=== PATIENT | female | born 1960 | race Caucasian/White ===

== ENCOUNTER 2019-11-01 13:21 | Inpatient (IN) | payer MEDICARE, SELFPAY ==
[2019-11-01] VITALS (11 sets, daily range): BP systolic 107–169; BP diastolic 69–108; PULSE 76–103; RESP 14–21; TEMP 36.6–36.9; O2SAT 94–96; BMI 38.0
--- NOTE | 2019-11-01 13:28 | ED_ITS ---
Entered by Na Mcwilliams, acting as scribe for Renzo Merritt MD, [facility] HPI - Altered Mental Status General: Chief Complaint: Altered Mental Status Stated Complaint: AMS, MULTIPLE FALLS TODAY Time Seen by Provider: 11/01/19 13:28 Source: patient and RN notes reviewed Mode of arrival: ambulatory Limitations: no limitations History of Present Illness: HPI narrative: 59 yo female presents to ED with an altered mental status. The patient has had multiple falls (3 times today). The patient family stated the patient's speech is not normal. The patient states she is pre-diabetic. The patient's PCP is Nori Rosenberg. The patient states she feels light headed, like she could pass out. The daughter states she the patient texts her that the texts make no sense, it is just random letters. The patient stated she is thirsty all the time as well as urinating frequently. The patient's blood sugar was over 600 at triage. MD complaint: altered mental status, confusion and weakness Onset (ago): day(s) (4) Timing confirmed by: spouse and family member Severity: severe Consistency of symptoms: Getting Worse Context: unknown Associated symptoms: Reports no associated symptoms Review of Systems General: Reports: 10 or more systems reviewed and unremarkable except in HPI and below Const: Denies: fever, chills or body aches Eyes: Reports: blind spots; Denies: change in vision or blurry vision ENMT: Denies: throat pain, enlarged tonsils, painful swallowing, hoarseness, mouth pain or swelling of lips/tongue Card: Reports: chest pain; Denies: palpitations, irregular heart rhythm, edema or swelling of feet/ankles Resp: Denies: shortness of breath, productive cough or non-productive cough GI: Denies: abdominal pain, nausea or vomiting : Denies: flank pain, difficulty urinating, painful urination, urinary urgency or urinary hesitancy Musc: Reports: extremity pain (left shoulder), joint pain (left shoulder) and limited range of motion; Denies: neck pain, back pain or extremity swelling Skin/Breast: Denies: rash, itching or redness Neuro: Denies: headache or numbness in extremities PFSH ED PFSH: Statuses (acute, chronic, etc) shown below reflect problem list status as previously entered and may not be historically accurate Medical History (Updated 11/01/19 @ 20:59 by Renzo Merritt MD, [facility]) COPD (chronic obstructive pulmonary disease) (Acute) Depression (Acute) History of cervical cancer (Acute) Hypertension (Acute) Morbid obesity (Acute) Type 2 diabetes mellitus (Acute) Family History (Updated 11/01/19 @ 19:06 by Juan Boston MD) Other Cancer Chronic kidney disease (CKD) Social History (Updated 11/01/19 @ 19:07 by Juan Boston MD) Smoking and tobacco status: current every day smoker Alcohol intake: never Substance/Drug Use: never Household members: family Housing: House Physical Exam Const: COMMON NORMALS: no apparent distress, average body habitus, no limitations, healthy appearing, alert and well nourished EXAM LIMITATIONS: altered mental status NUTRITIONAL APPEARANCE: overweight ORIENTATION/CONSCIOUSNESS: Yes awake, Yes oriented to person and Yes oriented to place HENMT: COMMON NORMALS: normocephalic, head/scalp atraumatic and moist oral mucous membranes HEAD & SCALP: normocephalic and atraumatic MOUTH: oral and palatal mucosa abnormal (dry) Eye: COMMON NORMALS: PERRL, EOMs intact bilaterally, conjunctivae normal and no scleral icterus CONJUNCTIVA: Yes conjunctivae normal PUPIL: Yes PERRL Neck/C-Spine: COMMON NORMALS: full ROM, supple, no meningeal signs, no JVD and no carotid bruits Chest: COMMONS NORMALS: inspection of chest normal and palpation of chest normal Resp: COMMON NORMALS: normal respiratory effort, no retractions, no use of accessory muscles, clear to auscultation bilaterally and percussion normal AUSCULTATION: clear to auscultation bilaterally PERCUSSION: percussion normal Cardio: COMMON NORMALS: no JVD, regular rate, regular rhythm, S1 normal heart sound, S2 normal heart sound, no gallops, no clicks, no murmurs, no rub and p eripheral pulses 2+ throughout RATE: regular rate RHYTHM: regular rhythm HEART SOUNDS: S1 normal and S2 normal PERIPHERAL PULSES: pulses 2+ throughout GI: COMMON NORMALS: normal to inspection, nondistended, normoactive bowel sounds, soft to palpation, non-tender, no hepatosplenomegaly, no masses and no bruits PALPATION: Yes soft and Yes no hepatosplenomegaly : COMMON NORMALS: Yes no CVA tenderness BLADDER/KIDNEY EXAM: Yes no CVA tenderness Back/Pelvis: COMMON NORMALS: no CVA tenderness Extremity: COMMON NORMALS: normal to inspection, full ROM, normal capillary refill, no calf tenderness and no pedal edema Neuro: SENSORIUM/ORIENTATION: Yes alert, Yes oriented to person and Yes oriented to place MENINGEAL SIGNS: Yes no meningeal signs OTHER: Speech does not always make sense Skin: COMMON NORMALS: no rashes or lesions noted, no wounds, no jaundice, no petechiae and no mottling GENERAL SKIN EXAM: no rashes or lesions noted and dry skin Course Consultations: Consultation #1: Dr. Singh, she kindly accepted the patient to her service Vital Signs: Vital signs: Vital Signs Temperature 97.8 F 11/01/19 13:24 Pulse Rate 93 11/01/19 18:12 Respiratory Rate 18 11/01/19 18:12 Blood Pressure 158/69 11/01/19 18:12 Pulse Oximetry 95 11/01/19 18:12 MDM - Altered Mental Status MDM Narrative: Medical decision making narrative: 59-year-old female who presented to the emergency department with altered mental status. In the emergency department she was diagnosed with DKA. She is a diabetic however is not on any medications. Her blood glucose was high, she had a high anion gap and ketones in her serum. She is admitted to the ICU for further evaluation and management. She was started on an insulin drip here in the emergency department Medical Records: Attestation: I reviewed the patient's medical records. Lab Data: Attestation: I reviewed the patient's lab results. Labs: Lab Results 11/01/19 11/01/19 11/01/19 Range/Units 13:26 13:30 13:30 WBC 11.8 H (4.0-10.0) 10^3/ uL RBC 5.82 H (4.1-5.3) 10^6/u L Hgb 17.0 H (11.5-15.3) g/dL Hct 49.4 H (37.0-47.0) % MCV 84.9 (81-99) fL MCH 29.2 (28.0-34.0) pg MCHC 34.4 (30.0-36.0) g/dL RDW 13.7 (12.1-15.1) % Plt Count 298 (130-400) 10^3/c mm MPV 12.3 H (7.4-10.4) fL Neut % (Auto) 56.1 % Lymph % (Auto) 29.3 % [place] % (Auto) 9.9 % Eos % (Auto) 1.5 % Baso % (Auto) 0.8 % Neut # (Auto) 6.6 (1.8-7.7) 10^3/u L Lymph # (Auto) 3.5 (0.8-4.8) 10^3/u L [place] # (Auto) 1.2 H (0.2-0.9) 10^3/u L Eos # (Auto) 0.2 (0.0-0.8) 10^3/u L Baso # (Auto) 0.1 (0.0-0.1) 10^3/u L Nucleated RBC % (a uto) 0 % Nucleated RBCs # 0.0 /100WBC Specimen Type Sample Site ABG pH (7.35-7.45) ABG pCO2 (35-45) mmHg ABG pO2 (80.0-100.0) mmH g ABG HCO3 (22-26) mmol/L ABG Base Excess (-2.0-2.0) mmol/ L Zach Test Hematocrit (37-47) % O2 Delivery Device O2 Liters/Min % Occupational Therapy Professor ID Sodium 123 L (136-145) mmol/L Potassium 4.3 (3.5-5.1) mmol/L Chloride 80 L (98-107) mmol/L Carbon Dioxide 17 L (22-29) mmol/L Anion Gap 30.3 H (5-19) BUN 26 H (6-20) mg/dL Creatinine 1.1 H (0.5-0.9) mg/dL GFR Calculation 51.2 L (90-130) mL/min Glucose 681 H* (74-109) mg/dL POC Glucose > 600 (70-110) mg/dL Estimat Average Gl ucose Hemoglobin A1c (4.0-6.0) % Lactate (0.5-2.2) mmol/L Calcium 11.3 H (8.5-10.5) mg/dL Magnesium 2.5 H (1.7-2.3) mg/dL Total Bilirubin 0.4 (0.15-1.2) mg/dL AST 20 (0-32) U/L ALT 34 H (0-33) U/L Alkaline Phosphata se 159 H (35-105) IU/L Total Protein 8.1 (6.6-8.7) g/dL Albumin 4.3 (3.5-5.2) g/dL Globulin 3.8 (1.3-4.6) g/dL TSH 2.62 (0.27-4.20) uIU/ mL HCG, Qual (Negative) Urine Color (Yellow) Urine Appearance (CLEAR) Urine pH (5-7) Ur Specific Gravit y (1.005-1.030) Urine Protein (Negative) Urine Glucose (UA) (Normal) Urine Ketones (Negative) Urine Occult Blood (Negative) Urine Nitrate (Negative) Urine Bilirubin (NEGATIVE) Urine Urobilinogen (Negative) mg/dL Ur Leukocyte Corin ase (Negative) Urine RBC (0-2) /hpf Urine WBC (0-5) /hpf Ur Squamous Epith Cells (0-5) Urine Bacteria (NONE) Urine Yeast Ethyl Alcohol < 10 (0-10) mg/dL Serum Ketones (Negative) 11/01/19 11/01/19 11/01/19 Range/Units 13:30 13:30 13:45 WBC (4.0-10.0) 10^3/ uL RBC (4.1-5.3) 10^6/u L Hgb (11.5-15.3) g/dL Hct (37.0-47.0) % MCV (81-99) fL MCH (28.0-34.0) pg MCHC (30.0-36.0) g/dL RDW (12.1-15.1) % Plt Count (130-400) 10^3/c mm MPV (7.4-10.4) fL Neut % (Auto) % Lymph % (Auto) % [place] % (Auto) % Eos % (Auto) % Baso % (Auto) % Neut # (Auto) (1.8-7.7) 10^3/u L Lymph # (Auto) (0.8-4.8) 10^3/u L [place] # (Auto) (0.2-0.9) 10^3/u L Eos # (Auto) (0.0-0.8) 10^3/u L Baso # (Auto) (0.0-0.1) 10^3/u L Nucleated RBC % (a uto) % Nucleated RBCs # /100WBC Specimen Type Arterial Sample Site Radial, right ABG pH 7.39 (7.35-7.45) ABG pCO2 26.7 L (35-45) mmHg ABG pO2 77.6 L (80.0-100.0) mmH g ABG HCO3 16.2 L (22-26) mmol/L ABG Base Excess -6.8 L (-2.0-2.0) mmol/ L Zach Test Pos Hematocrit 52.0 H (37-47) % O2 Delivery Device Nc O2 Liters/Min 2.0 % Occupational Therapy Professor ID jmn Sodium (136-145) mmol/L Potassium (3.5-5.1) mmol/L Chloride (98-107) mmol/L Carbon Dioxide (22-29) mmol/L Anion Gap (5-19) BUN (6-20) mg/dL Creatinine (0.5-0.9) mg/dL GFR Calculation (90-130) mL/min Glucose (74-109) mg/dL POC Glucose (70-110) mg/dL Estimat Average Gl ucose 332 Hemoglobin A1c 13.2 H (4.0-6.0) % Lactate (0.5-2.2) mmol/L Calcium (8.5-10.5) mg/dL Magnesium (1.7-2.3) mg/dL Total Bilirubin (0.15-1.2) mg/dL AST (0-32) U/L ALT (0-33) U/L Alkaline Phosphata se (35-105) IU/L Total Protein (6.6-8.7) g/dL Albumin (3.5-5.2) g/dL Globulin (1.3-4.6) g/dL TSH (0.27-4.20) uIU/ mL HCG, Qual (Negative) Urine Color (Yellow) Urine Appearance (CLEAR) Urine pH (5-7) Ur Specific Gravit y (1.005-1.030) Urine Protein (Negative) Urine Glucose (UA) (Normal) Urine Ketones (Negative) Urine Occult Blood (Negative) Urine Nitrate (Negative) Urine Bilirubin (NEGATIVE) Urine Urobilinogen (Negative) mg/dL Ur Leukocyte Corin ase (Negative) Urine RBC (0-2) /hpf Urine WBC (0-5) /hpf Ur Squamous Epith Cells (0-5) Urine Bacteria (NONE) Urine Yeast Ethyl Alcohol (0-10) mg/dL Serum Ketones Positive H (Negative) 11/01/19 11/01/19 11/01/19 Range/Units 14:04 14:18 14:20 WBC (4.0-10.0) 10^3/ uL RBC (4.1-5.3) 10^6/u L Hgb (11.5-15.3) g/dL Hct (37.0-47.0) % MCV (81-99) fL MCH (28.0-34.0) pg MCHC (30.0-36.0) g/dL RDW (12.1-15.1) % Plt Count (130-400) 10^3/c mm MPV (7.4-10.4) fL Neut % (Auto) % Lymph % (Auto) % [place] % (Auto) % Eos % (Auto) % Baso % (Auto) % Neut # (Auto) (1.8-7.7) 10^3/u L Lymph # (Auto) (0.8-4.8) 10^3/u L [place] # (Auto) (0.2-0.9) 10^3/u L Eos # (Auto) (0.0-0.8) 10^3/u L Baso # (Auto) (0.0-0.1) 10^3/u L Nucleated RBC % (a uto) % Nucleated RBCs # /100WBC Specimen Type Sample Site ABG pH (7.35-7.45) ABG pCO2 (35-45) mmHg ABG pO2 (80.0-100.0) mmH g ABG HCO3 (22-26) mmol/L ABG Base Excess (-2.0-2.0) mmol/ L Zach Test Hematocrit (37-47) % O2 Delivery Device O2 Liters/Min % Occupational Therapy Professor ID Sodium (136-145) mmol/L Potassium (3.5-5.1) mmol/L Chloride (98-107) mmol/L Carbon Dioxide (22-29) mmol/L Anion Gap (5-19) BUN (6-20) mg/dL Creatinine (0.5-0.9) mg/dL GFR Calculation (90-130) mL/min Glucose (74-109) mg/dL POC Glucose (70-110) mg/dL Estimat Average Gl ucose Hemoglobin A1c (4.0-6.0) % Lactate 2.0 (0.5-2.2) mmol/L Calcium (8.5-10.5) mg/dL Magnesium (1.7-2.3) mg/dL Total Bilirubin (0.15-1.2) mg/dL AST (0-32) U/L ALT (0-33) U/L Alkaline Phosphata se (35-105) IU/L Total Protein (6.6-8.7) g/dL Albumin (3.5-5.2) g/dL Globulin (1.3-4.6) g/dL TSH (0.27-4.20) uIU/ mL HCG, Qual Negative (Negative) Urine Color Yellow (Yellow) Urine Appearance Clear (CLEAR) Urine pH 5 (5-7) Ur Specific Gravit y 1.020 (1.005-1.030) Urine Protein Trace (Negative) Urine Glucose (UA) 4+ H (Normal) Urine Ketones 2+ H (Negative) Urine Occult Blood 3+ H (Negative) Urine Nitrate Negative (Negative) Urine Bilirubin Neg (NEGATIVE) Urine Urobilinogen Norm (Negative) mg/dL Ur Leukocyte Corin ase Negative (Negative) Urine RBC 5-10 H (0-2) /hpf Urine WBC 0-4 H (0-5) /hpf Ur Squamous Epith Cells 0-4 H (0-5) Urine Bacteria 2+ H (NONE) Urine Yeast 2+ H Ethyl Alcohol (0-10) mg/dL Serum Ketones (Negative) Imaging Data^: CT Head: Radiologist's impression: [address] [address] [address] Scan Report Signed Patient: Sandra Jarquin Unit #: [id number] : 1960 Age/Sex: 59 / F ADM Date: 11/01/19 Loc: ER Room/Bed: Attending Dr: Ordering Provider/Ordering MD: Renzo Merritt MD, [facility] Date of Service: 11/01/19 Procedure(s): CT head wo con* [id number] Accession Number(s): [id number] Report Number: [id number] WS: [id number] CT scan of the head, 11/01/2019 Clinical Data: AMS Comparison: None. DLP: 803.[address] scans at [facility] use at least one of these dose optimization techniques: automated exposure control; mA and/or kV adjustment per patient size (includes targeted exams where dose is matched to clinical indication); or iterative reconstruction. Findings: The ventricular system is normal without shift. No recent infarct or hemorrhage is seen. There are no abnormal intracerebral masses. The cerebellum and brainstem are not remarkable. Bony windows of the skull and skull base show no fractures or erosions. The mastoid air cells, internal auditory canals, sella turcica, intraorbital contents, and paranasal sinuses are unremarkable. CT/CT head wo con* [id number] Impression: Negative CT scan of the head Dictated By: Maria Isabel Coffey MD Signed By: Maria Isabel Coffey MD Signed Date/Time: 11/01/19 1539 DD/ CXR: Radiologist's impression: [address] [address] XRay Report Signed Patient: Sandra Jarquin Unit #: [id number] : 1960 Age/Sex: 59 / F ADM Date: Loc: ER Room/Bed: Attending Dr: Ordering Provider/Ordering MD: Renzo Merritt MD, [facility] Date of Service: 11/01/19 Procedure(s): XR chest 1V portable [id number] Accession Number(s): [id number] Report Number: [id number] WS: [id number] Portable AP upright chest, 11/01/2019 Clinical Data: AMS Comparison: None. Findings: No nodules, masses or effusions are seen. The heart is normal. The pulmonary vascularity is not increased. No pneumonia or pneumothorax is seen. XR/XR chest 1V portable [id number] Impression: Negative chest. Dictated By: Maria Isabel Coffey MD Signed By: Maria Isabel Coffey MD Signed Date/Time: 11/01/19 1357 DD/ Discharge Plan Discharge Patient Disposition: Admitted As Inpatient Admit Provider: Mary Singh Clinical Impression: DKA (diabetic ketoacidoses), Altered mental status Condition: Stable Interventions: ED Discharge Assessment Last Done: 11/01/19 18:12 Discharge Date/Time: 11/01/19 18:13 Coding Level of Care Code ED Top Lift Compressor for Chg Fwd The documentation recorded by the Oj mason Valerie R, accurately reflects the service I personally performed and the decisions made by René rider Adegoke I, MD, [facility] Nov 01, 2019 13:21
[2019-11-01 13:29] LABS: Glucose Point of Care > 600 mg/dL (70-110)
--- NOTE | 2019-11-01 13:36 | CT_ITS ---
WS: [id number] CT scan of the head, 11/01/2019 Clinical Data: AMS Comparison: None. DLP: 803.[address] scans at [facility] use at least one of these dose optimization techniques: automat ed exposure control; mA and/or kV adjustment per patient size (includes targeted exams where dose is matched to clinical indication); or iterative reconstruction. Findings: The ventricular system is normal without shift. No recent infarct or hemorrhage is seen. There are no abnormal intracerebral masses. The cerebellum and brainstem are not remarkable. Bony windows of the skull and skull base show no fractures or erosions. The mastoid air cells, materials intern al auditory canals, sella turcica, intraorbital contents, and paranasal sinuses are unremarkable. CT/CT head wo con* [id number] Impression: Negative CT scan of the head
--- NOTE | 2019-11-01 13:36 | XR_ITS ---
WS: [id number] Portable AP upright chest, 11/01/2019 Clinical Data: AMS Comparison: None. Findings: No nodules, masses or effusions are seen. The heart is normal. The pulmonary vascularity is not increased. No pneumonia or pneumothorax is seen. XR/XR chest 1V portable [id number] Impression: Negative chest.
[2019-11-01 13:59] LABS: Basophils # 0.1 10^3/uL (0.0-0.1); Basophils % 0.8 %; Eosinophils # 0.2 10^3/uL (0.0-0.8); Eosinophils % 1.5 %; Hematocrit 49.4 % (37.0-47.0); Lymphocytes # 3.5 10^3/uL (0.8-4.8); Lymphocytes % 29.3 %; Mean Corpuscular HGB Conc 34.4 g/dL (30.0-36.0); Mean Corpuscular Hemoglobin 29.2 pg (28.0-34.0); Mean Corpuscular Volume 84.9 fL (81-99); Mean Platelet Volume 12.3 fL (7.4-10.4); Monocytes # 1.2 10^3/uL (0.2-0.9); Monocytes % 9.9 %; Neutrophils # 6.6 10^3/uL (1.8-7.7); Neutrophils % 56.1 %; Nucleated Red Blood Cells % 0 %; Platelet Count 298 10^3/cmm (130-400); Red Blood Count 5.82 10^6/uL (4.1-5.3); Red Cell Distribution Width 13.7 % (12.1-15.1); White Blood Count 11.8 10^3/uL (4.0-10.0)
[2019-11-01 14:02] LABS: ABG PCO2 26.7 mmHg (35-45); ABG PH Result 7.39 (7.35-7.45); Base Excess ABG -6.8 mmol/L (-2.0-2.0); Blood Gas Allen Test Pos; Blood Gas Sample Site Radial, right; Blood Gas Sample Type Arterial; HCO3 ABG 16.2 mmol/L (22-26); Oxygen Device NC; PO2 ABG 77.6 mmHg (80.0-100.0)
[2019-11-01 14:11] LABS: Ketone (Acetest) Serum Positive (Negative)
[2019-11-01 14:25] LABS: Alanine Aminotransferase 34 U/L (0-33); Albumin Level 4.3 g/dL (3.5-5.2); Alkaline Phosphatase 159 IU/L (35-105); Anion Gap 30.3 (5-19); Aspartate Amino Transferase 20 U/L (0-32); Blood Urea Nitrogen 26 mg/dL (6-20); Calcium 11.3 mg/dL (8.5-10.5); Carbon Dioxide 17 mmol/L (22-29); Chloride 80 mmol/L (98-107); Globulin 3.8 g/dL (1.3-4.6); Glomerular Filtration Rate 51.2 mL/min (90-130); Magnesium 2.5 mg/dL (1.7-2.3); Potassium 4.3 mmol/L (3.5-5.1); Sodium 123 mmol/L (136-145); Thyroid Stimulating Hormone 2.62 uIU/mL (0.27-4.20); Total Bilirubin 0.4 mg/dL (0.15-1.2); Total Protein 8.1 g/dL (6.6-8.7)
[2019-11-01 14:26] LABS: Add Urine Microscopic? YES; Bilirubin Urine Neg (NEGATIVE); Blood Urine 3+ (Negative); Glucose Urine UA 4+ (Normal); Ketones Urine 2+ (Negative); Leukocyte Esterase Urine Negative (Negative); Nitrate Urine Negative (Negative); Protein Urine Trace (Negative); Urine Appearance Clear (CLEAR); Urine Color Yellow (Yellow); Urobilinogen Urine Norm (Negative); pH Urine 5 (5-7)
[2019-11-01 14:26] LABS: HCG Qualitative Urine. Negative (Negative)
[2019-11-01 14:31] LABS: Alcohol Level < 10 mg/dL (0-10); Glucose 681 mg/dL (74-109)
[2019-11-01 14:35] LABS: Squamous Epithelial Cell Urine 0-4 (0-5)
[2019-11-01 14:36] LABS: Add Urine Culture? Yes; Bacteria Urine 2+; WBC Urine 0-4 /hpf (0-5)
[2019-11-01] MEDS: sodium chloride 0.9% 1,000 ML 999 ML IV ×2 (15:13→18:03)
[2019-11-01] MEDS: insulin regular-human 250 UNIT in sodium chloride 0.9% 250 ML 10 UNIT IV (16:50)
[2019-11-01 17:28] LABS: Estmated Average Glucose 332; Hemoglobin A1C 13.2 % (4.0-6.0)
[2019-11-01] MEDS: nicotine 21 mg Patch 1 PATCH TRANSDERMA (18:03)
[2019-11-01 18:44] LABS: Glucose Point of Care 301 mg/dL (70-110)
[2019-11-01] MEDS: insulin regular-human 250 UNIT in sodium chloride 0.9% 250 ML 7.2 UNIT IV (18:53)
[2019-11-01] MEDS: sodium chloride 0.9% 1,000 ML 125 ML IV (18:58)
--- NOTE | 2019-11-01 18:58 | PM.HP ---
Providers/Chief Complaint Admitting Physician: Mary Singh MD Chief Complaint: DKA History of Present Illness Sandra Jarquin is a 59 year old female's medical history of depression,Morbid obesity, COPD, fibromyalgia, chronic smoker, hyperlipidemia, type 2 diabetes mellitus on diet control presented to the ER today complaining of having frequent episodes of falls since Tuesday. Patient states she has had up to 4 episodes since Tuesday that she would get up from the bed or chair will have dizziness along with flash in front of her eyes with nausea and she would have presyncopal events in which she would fall on the ground but would not lose her consciousness. Because she was having recurrent episodes she came to the ER. In the ER patient was found to have high blood sugars along with high anion gap so has been admitted to the ICU for DKA. Patient denies of having any nausea, vomiting, change in her bowel movements, flulike symptoms, shortness of breath, palpitations. Patient also complains of having sores beneath both her breasts and in her pannus area for last 2 years for which she has been intermittently on antibiotics with last antibiotic use over 7-month ago. Patient states right now for last couple of weeks there has been occasional boils through which foul-smelling stuff is coming out. She denies of having any fevers or chills but does complain sores are extremely painful. She is not taking any medications for the sores. Review of Systems Const: Denies: fever, chills, body aches, change in appetite, malaise, night sweats, diaphoresis, change in sleep pattern, daytime sleepiness or snoring Eyes: Denies: change in vision, blurry vision, photophobia, eye discomfort or eye discharge ENMT: Denies: throat pain, enlarged tonsils, hoarseness, mouth pain, oral sores/lesions, dry mouth, tinnitus, nasal congestion or post nasal drip Card: Denies: chest pain, palpitations, irregular heart rhythm, edema, swelling of feet/ankles, lightheadedness, syncope, pre-syncope, shortness of breath on exertion, shortness of breath when lying down, leg pain with exertion or bluish discoloration of hands/feet Resp: Denies: shortness of breath, productive cough, non-productive cough, wheezing, stridor, pain on inspiration, change in phlegm color, coughing up blood or chest congestion GI: Reports: abdominal pain and nausea; Denies: vomiting, vomiting blood, coffee grounds in vomit, difficulty swallowing, heartburn/indigestion, diarrhea, constipation, bloating, cramping, change in bowel habits, painful bowel movements, blood in stool or black tarry stool : Denies: flank pain, painful urination, urinary frequency, urinary urgency, urinary hesitancy, nighttime urination or blood in urine Musc: Reports: extremity pain; Denies: neck pain, back pain, joint pain, joint swelling, redness, joint stiffness or limited range of motion Neuro: Reports: headache, weakness in extremities, lack of coordination, frequent falls and dizziness; Denies: numbness in extremities, changes in sensation, difficulty walking, vertigo, confusion, slurred speech, difficulty communicating thoughts or seizure-like activity Psych: Denies: anxiety, depression, mood swings, panic attacks, hopelessness or irritability Endo: Denies: excessive urination, excessive thirst, tired all the time, cold intolerance, excessive sweating, flushing or heat intolerance Gt/Lymph: Denies: easy bruising or easy bleeding All/Imm: Denies: tongue swelling, facial swelling or acute wheezing Medications/Allergies Home Medications Medication Instructions Recorded Confirmed Last Taken Type amitriptyline 50 - 150 mg PO BEDTIME 11/01/19 11/01/19 Unknown History bupropion HCl 150 mg PO BID 11/01/19 11/01/19 Unknown History cyclobenzaprine 10 mg PO BID PRN 11/01/19 11/01/19 Unknown History esomeprazole magnesium [Nexium] 40 mg PO DAILY 11/01/19 11/01/19 Unknown History oxybutynin chloride 10 mg PO DAILY 11/01/19 11/01/19 Unknown History potassium chloride 10 meq PO DAILY 11/01/19 11/01/19 Unknown History rosuvastatin [Crestor] 10 mg PO DAILY 11/01/19 11/01/19 Unknown History Allergies Allergy/AdvReac Type Severity Reaction Status Date / Time No Known Allergies Allergy Verified 11/01/19 13:29 PFSH Acute PFSH: Statuses (acute, chronic, etc) shown below reflect problem list status as previously entered and may not be historically accurate Medical History (Updated 11/01/19 @ 19:06 by Juan Boston MD) COPD (chronic obstructive pulmonary disease) (Acute) Depression (Acute) History of cervical cancer (Acute) Hypertension (Acute) Morbid obesity (Acute) Type 2 diabetes mellitus (Acute) Family History (Updated 11/01/19 @ 19:06 by Juan Boston MD) Other Cancer Chronic kidney disease (CKD) Social History (Updated 11/01/19 @ 19:07 by Juan Boston MD) Smoking and tobacco status: current every day smoker Alcohol intake: never Substance/Drug Use: never Household members: family Housing: House Vitals/I&O/Wt Last Vital Signs Temp 97.8 F 11/01/19 13:24 Pulse 93 11/01/19 18:12 Resp 18 11/01/19 18:12 BP 158/69 11/01/19 18:12 Pulse Ox 95 11/01/19 18:12 11/01/19 11/01/19 11/01/19 06:59 14:59 22:59 Intake Total 20.5 / 20.5 Balance 20.5 / 20.5 Weight last 48 hrs Weight 113.398 kg Physical Exam Narrative: EXAM NARRATIVE: General: No acute distress, AO x3, dehydrated, anxious HEENT: PERRLA, pupils bilaterally equal and reactive Chest: Normal vesicular breath sounds, no added sounds, equal good air entry bilaterally CVS: S1-S2 regular, no murmurs, tachycardia, no gallops, no rubs Abdomen: Soft, nontender, no organomegaly, bowel sounds present, Neuro: No focal deficits, no facial deformity, AO x3, power 5/5 in all limbs Skin: Multiple red Data : 11/01/19 13:30 11/01/19 13:30 Micro: Microbiology 11/01/19 14:04 Blood Culture - Preliminary Blood SPECIMEN COLLECTED 11/01/19 13:58 Blood Culture - Preliminary Blood SPECIMEN COLLECTED A&P Assessment and plan (1) Cellulitis: Status: Acute Code(s): L03.90 - Cellulitis, unspecified (2) Type 2 diabetes mellitus: Status: Acute Code(s): E11.9 - Type 2 diabetes mellitus without complications (3) DKA (diabetic ketoacidoses): Status: Acute Code(s): E11.10 - Type 2 diabetes mellitus with ketoacidosis without coma Additional A&P Information Diabetic ketoacidosis: Most likely due to elevated blood sugars for a long time as patient is not on any treatment from primary care physician versus possible sepsis from cellulitis. Admit to ICU. Insulin drip as per the DKA protocol with target blood sugars of 1 50?200. Patient is only received 1 L in ER for now. 2 L bolus within next 1 hour. Followed by normal saline at 125 cc/h.blood sugar goes around 250 at that point change fluid to D5 NS. Check BMP every 4 hours to monitor for anion gap and potassium levels. Will repeat potassium levels if less than 4. Fingersticks every hourly. Cellulitis: Most likely fungal infection with superimposed bacterial infection. MRSA swab. Vancomycin and Zosyn at renal dose. Wound culture. Will de-escalate antibiotics as per the wound culture results. Follow-up blood cultures already sent. We will start patient on co-trimoxazole cream and nystatin powder. COPD: Patient carries remote history of COPD. Oxygen supplementation keeping saturation 92%. DuoNeb's every 6 hourly and albuterol as needed. Continue chronic home medications for depression. Full code: N.p.o. Lovenox for DVT prophylaxis Attestations Medical Necessity Statement*: Needs admission for more than 2 midnights for treatment of DKA. 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
[2019-11-01 20:00] LABS: Glucose Point of Care 298 mg/dL (70-110)
[2019-11-01 20:06] LABS: Procalcitonin 0.14 ng/mL (0-0.5)
[2019-11-01] MEDS: enoxaparin 40 mg/0.4 mL Syringe SUBCUT (20:10)
[2019-11-01 20:17] LABS: Anion Gap 29.5 (5-19); Blood Urea Nitrogen 21 mg/dL (6-20); Calcium 10.1 mg/dL (8.5-10.5); Carbon Dioxide 18 mmol/L (22-29); Chloride 88 mmol/L (98-107); Glomerular Filtration Rate 64.5 mL/min (90-130); Glucose 302 mg/dL (74-109); Iron 58 ug/dL (37-145); Osmolality Calculated 282 mOsm/kg (285-295); Percent Saturation 26.4 % (20-50); Potassium 3.5 mmol/L (3.5-5.1); Sodium 132 mmol/L (136-145); Total Iron Binding Capacity 219 mcg/dl; Unsaturated Iron Binding 161 ug/dL (112-347)
[2019-11-01] MEDS: lanolin oint 7 gm 1 APPLIC TOPICAL (21:01)
[2019-11-01 21:03] LABS: Glucose Point of Care 201 mg/dL (70-110)
--- NOTE | 2019-11-01 21:32 | PC.NURSE ---
Open wound noted to under portion of right breast, no drainage noted at present time. Culture sent as ordered. Skin under breast read and raw. Wounds noted to lower abdomen, not open or draining, unable to culture. Patient reports that she has had these for a long time and she was told at the clinic that they are staff.
[2019-11-01] MEDS: piperacillin-tazobactam 3.375 GM in sodium chloride 0.9% (plus) 50 ML IV (21:37)
[2019-11-01] MEDS: dextrose 5%-ns 0.45% + KCl 40 1,000 ML 125 MEQ IV (21:37)
[2019-11-01] MEDS: ipratropium-albuterol 3 mL Neb INHALATION (21:43)
[2019-11-01 21:59] LABS: Glucose Point of Care 173 mg/dL (70-110)
--- NOTE | 2019-11-01 22:40 | PC.NURSE ---
2104 - Blood glucose 201. Notified Dr. Valle of blood glucose o 201, anion gap of 29.5, and potassium of 3.4. Orders given to change IV fluids to D51/2NS with 40meq KCL at 125ml/h and continue insulin drip.
[2019-11-01 23:08] LABS: Anion Gap 19.3 (5-19); Blood Urea Nitrogen 22 mg/dL (6-20); Calcium 9.4 mg/dL (8.5-10.5); Carbon Dioxide 20 mmol/L (22-29); Chloride 94 mmol/L (98-107); Glomerular Filtration Rate 73.9 mL/min (90-130); Glucose 207 mg/dL (74-109); Osmolality Calculated 273 mOsm/kg (285-295); Potassium 3.3 mmol/L (3.5-5.1); Sodium 130 mmol/L (136-145)
[2019-11-01 23:18] LABS: Glucose Point of Care 195 mg/dL (70-110)
[2019-11-01] MEDS: potassium chloride premix 40 MEQ/100 ML PREMIX 25 MEQ IV (23:34)
[2019-11-01] MEDS: lidocaine 1% INJ 20 mL 5 ML IV (23:35)
--- NOTE | 2019-11-01 23:39 | PC.NURSE ---
8557 - Notified Dr. Valle that patients current blood glucose is 195 with insulin drip infusing at 6.8units/hr, current Na+ is 130, current K+ is 3.3, current anion gap is 19.3. Currently IV fluids oare D51/2 NS with 40meq KCL at 125ml/h. Order given to hold insulin drip and IV fluids x 2 hours. Infuse 40meq K IV, then recheck BMP.
[2019-11-02] VITALS (14 sets, daily range): BP systolic 101–160; BP diastolic 62–83; PULSE 82–95; RESP 10–21; TEMP 36.8–36.9; O2SAT 92–97
[2019-11-02 00:02] LABS: Glucose Point of Care 194 mg/dL (70-110)
[2019-11-02 01:01] LABS: Glucose Point of Care 214 mg/dL (70-110)
[2019-11-02 02:20] LABS: Glucose Point of Care 236 mg/dL (70-110)
[2019-11-02 02:34] LABS: Amphetamines Screen Urine Negative (Negative); Barbiturates Screen Urine Negative (Negative); Benzodiazepines Screen Urine Negative (Negative); Cocaine Screen Urine Negative (Negative); Opiate Screen Urine Negative (Negative); PCP Screen Urine Negative (Negative); THC Screen Urine Negative (Negative)
[2019-11-02 03:00] LABS: Glucose Point of Care 253 mg/dL (70-110)
[2019-11-02 04:02] LABS: Glucose Point of Care 242 mg/dL (70-110)
[2019-11-02 04:21] LABS: Basophils # 0.1 10^3/uL (0.0-0.1); Basophils % 0.9 %; Eosinophils # 0.2 10^3/uL (0.0-0.8); Eosinophils % 2.4 %; Hemoglobin 13.9 g/dL (11.5-15.3); Lymphocytes # 3.8 10^3/uL (0.8-4.8); Lymphocytes % 37.6 %; Mean Corpuscular HGB Conc 34.8 g/dL (30.0-36.0); Mean Corpuscular Hemoglobin 29.1 pg (28.0-34.0); Mean Corpuscular Volume 83.9 fL (81-99); Monocytes # 1.1 10^3/uL (0.2-0.9); Monocytes % 10.5 %; Neutrophils # 4.6 10^3/uL (1.8-7.7); Neutrophils % 46.3 %; Nucleated Red Blood Cells % 0 %; Platelet Count 219 10^3/cmm (130-400); Red Blood Count 4.77 10^6/uL (4.1-5.3); Red Cell Distribution Width 13.4 % (12.1-15.1)
[2019-11-02 04:44] LABS: Anion Gap 19.5 (5-19); Blood Urea Nitrogen 21 mg/dL (6-20); Calcium 9.5 mg/dL (8.5-10.5); Carbon Dioxide 19 mmol/L (22-29); Chloride 96 mmol/L (98-107); Chol HDL Ratio 9.77 mg/dL (0.0-4.40); Cholesterol 254 mg/dL (0-200); Glomerular Filtration Rate 73.9 mL/min (90-130); Glucose 261 mg/dL (74-109); HDL Cholesterol 26 mg/dL (60-100); Osmolality Calculated 278 mOsm/kg (285-295); Potassium 3.5 mmol/L (3.5-5.1); Sodium 131 mmol/L (136-145)
[2019-11-02] MEDS: piperacillin-tazobactam 3.375 GM in sodium chloride 0.9% (plus) 50 ML IV ×3 (04:44→21:10)
[2019-11-02 05:06] LABS: Glucose Point of Care 219 mg/dL (70-110)
[2019-11-02 05:11] LABS: Triglycerides 1079 mg/dL (0-150); VLDL Cholestrol Calculation 216 mg/dL (0-30)
[2019-11-02 05:16] LABS: LDL Cholesterol Direct 106 mg/dL (0-100)
[2019-11-02 06:14] LABS: Glucose Point of Care 210 mg/dL (70-110)
[2019-11-02 06:47] LABS: Glucose Point of Care 192 mg/dL (70-110)
[2019-11-02 08:30] LABS: Anion Gap 15.5 (5-19); Blood Urea Nitrogen 18 mg/dL (6-20); Calcium 9.4 mg/dL (8.5-10.5); Carbon Dioxide 23 mmol/L (22-29); Chloride 93 mmol/L (98-107); Glomerular Filtration Rate 73.9 mL/min (90-130); Glucose 188 mg/dL (74-109); Osmolality Calculated 267 mOsm/kg (285-295); Potassium 3.5 mmol/L (3.5-5.1); Sodium 128 mmol/L (136-145)
[2019-11-02] MEDS: buPROPion SR (12 HR) 150 mg Tablet PO ×2 (09:25→17:35)
[2019-11-02] MEDS: atorvastatin 40 mg Tablet PO (09:26)
[2019-11-02] MEDS: oxybutynin chloride XL 5 MG TABLET 10 MG PO (09:26)
[2019-11-02] MEDS: nicotine 21 mg Patch 1 PATCH TRANSDERMA (09:27)
[2019-11-02 09:33] LABS: Glucose Point of Care 186 mg/dL (70-110)
--- NOTE | 2019-11-02 09:38 | PC.NURSE ---
p.t. in this am. elizabeth ambulation well
[2019-11-02] MEDS: dextrose 5%-ns 0.45% + KCl 40 1,000 ML 125 MEQ IV (10:46)
[2019-11-02] MEDS: gabapentin 100 mg Capsule PO ×2 (10:46→19:37)
--- NOTE | 2019-11-02 11:02 | PC.NURSE ---
discontinued some home meds. pt. stated she didnt take them because no one explained what they were for.
[2019-11-02 11:57] LABS: Anion Gap 16.6 (5-19); Blood Urea Nitrogen 19 mg/dL (6-20); Calcium 9.7 mg/dL (8.5-10.5); Carbon Dioxide 21 mmol/L (22-29); Chloride 94 mmol/L (98-107); Glomerular Filtration Rate 73.9 mL/min (90-130); Glucose 201 mg/dL (74-109); Osmolality Calculated 268 mOsm/kg (285-295); Potassium 3.6 mmol/L (3.5-5.1); Sodium 128 mmol/L (136-145)
[2019-11-02] MEDS: cyclobenzaprine 10 mg Tablet PO ×2 (12:36→21:17)
[2019-11-02] MEDS: insulin glargine 100 units/1 mL 20 UNIT SUBCUT (13:17)
[2019-11-02] MEDS: sodium chloride 0.9% 1,000 ML 75 ML IV (13:31)
--- NOTE | 2019-11-02 14:49 | PM.PN ---
Subjective Subjective: Interval history: Overnight the fluid was changed from NS to D5 NS monitor sugar was around 200. Patient seen today morning at around 10 AM. She continues to be on insulin drip at 6 with D5 NS running at 125 cc/h. She states she is feeling a lot better but still complaining of feeling dehydrated. Denies of having any nausea, vomiting, headache, palpitations. Vitals/I&O/Wt Last Vital Signs Temp 98.4 F 11/02/19 04:00 Pulse 82 11/02/19 08:32 Resp 16 11/02/19 08:32 BP 150/80 11/02/19 06:01 Pulse Ox 97 11/02/19 08:32 11/01/19 11/02/19 11/02/19 22:59 06:59 14:59 Intake Total 1231.413 / 1231.413 637.566 / 1975.299 0569.493 / 1428.493 Output Total 400 / 400 Balance 1231.413 / 1231.413 237.566 / 9980.795 1452.493 / 1428.493 Weight last 48 hrs Weight 108.272 kg Weight 113.398 kg Physical Exam Narrative: EXAM NARRATIVE: General: No acute distress, AO x3, dehydrated, anxious HEENT: PERRLA, pupils bilaterally equal and reactive Chest: Normal vesicular breath sounds, no added sounds, equal good air entry bilaterally CVS: S1-S2 regular, no murmurs, tachycardia, no gallops, no rubs Abdomen: Soft, nontender, no organomegaly, bowel sounds present, Neuro: No focal deficits, no facial deformity, AO x3, power 5/5 in all limbs Skin: Multiple red Data : 11/02/19 04:02 11/02/19 11:14 Micro: Microbiology 11/01/19 14:04 Blood Culture - Preliminary Blood NEGATIVE TO DATE 11/01/19 13:58 Blood Culture - Preliminary Blood NEGATIVE TO DATE 11/01/19 14:20 Urine Culture - Preliminary Urine,Clean Catch A&P Assessment and plan (1) Cellulitis: Status: Acute Code(s): L03.90 - Cellulitis, unspecified (2) Type 2 diabetes mellitus: Status: Acute Code(s): E11.9 - Type 2 diabetes mellitus without complications (3) DKA (diabetic ketoacidoses): Status: Acute Qualifiers: Diabetes mellitus complication detail: without coma Diabetes mellitus type: type 2 Qualified Code(s): E11.10 - Type 2 diabetes mellitus with ketoacidosis without coma Code(s): E11.10 - Type 2 diabetes mellitus with ketoacidosis without coma Additional A&P Information Diabetic ketoacidosis: Most likely due to elevated blood sugars for a long time as patient is not on any treatment from primary care physician versus possible sepsis from cellulitis. Insulin drip as per the DKA protocol with target blood sugars of 1 50?200. Will get BMP stat. Last BMP at 8 PM shows closing of anion gap. If anion gap continues to remain close on this BMP we will switch the fluid from D5 NS to NS at 75 cc/h. We will start patient on Lantus 20 units twice daily. Start patient on carbohydrate consistent diet and insulin sliding scale at aggressive protocol. HbA1c more than 13. Patient would most likely need insulin upon discharge. Discussed the above with patient. Cellulitis: Most likely fungal infection with superimposed bacterial infection. MRSA swab result awaited. Vancomycin and Zosyn at renal dose. We will discontinue Vanco if MRSA negative. Wound culture sent. Will de-escalate antibiotics as per the wound culture results. Follow-up blood cultures already sent. We will start patient on co-trimoxazole cream and nystatin powder. COPD: Patient carries remote history of COPD. Oxygen supplementation keeping saturation 92%. DuoNeb's every 6 hourly and albuterol as needed. High blood pressures: Patient does not have a diagnosis of hypertension but the blood pressure since admission has been on the higher side. We will start patient on lisinopril 10 mg given diabetes. Creatinine is stable. Continue chronic home medications for depression. Full code. N.p.o. Lovenox for DVT prophylaxis Plan transfer patient out of ICU on insulin drip as stopped. 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
[2019-11-02] MEDS: clotrimazole 1% cream 30 gm 1 APPLIC TOPICAL ×2 (15:41→19:37)
[2019-11-02] MEDS: nystatin powder 15 gm Btl 1 APPLIC TOPICAL ×2 (15:42→19:37)
[2019-11-02 17:39] LABS: Anion Gap 18.7 (5-19); Blood Urea Nitrogen 20 mg/dL (6-20); Calcium 9.4 mg/dL (8.5-10.5); Carbon Dioxide 20 mmol/L (22-29); Chloride 95 mmol/L (98-107); Glomerular Filtration Rate 73.9 mL/min (90-130); Glucose 360 mg/dL (74-109); Osmolality Calculated 281 mOsm/kg (285-295); Potassium 3.7 mmol/L (3.5-5.1); Sodium 130 mmol/L (136-145)
--- NOTE | 2019-11-02 18:11 | PC.NURSE ---
voided times one this shift in bathroom. elizabeth. ambulation well.
[2019-11-02 18:34] LABS: Glucose Point of Care 176 mg/dL (70-110)
[2019-11-02 18:34] LABS: Glucose Point of Care 166 mg/dL (70-110)
[2019-11-02 18:34] LABS: Glucose Point of Care 141 mg/dL (70-110)
[2019-11-02 18:34] LABS: Glucose Point of Care 373 mg/dL (70-110)
[2019-11-02 18:34] LABS: Glucose Point of Care 189 mg/dL (70-110)
[2019-11-02 18:34] LABS: Glucose Point of Care 162 mg/dL (70-110)
[2019-11-02] MEDS: enoxaparin 40 mg/0.4 mL Syringe SUBCUT (19:37)
[2019-11-02 21:57] LABS: Glucose Point of Care 448 mg/dL (70-110)
[2019-11-03] VITALS (17 sets, daily range): BP systolic 112–132; BP diastolic 61–90; PULSE 77–92; RESP 15–20; TEMP 36.4–37.1; O2SAT 90–99; BMI 36.0
[2019-11-03] MEDS: sodium chloride 0.9% 1,000 ML 75 ML IV ×2 (02:20→17:19)
[2019-11-03] MEDS: piperacillin-tazobactam 3.375 GM in sodium chloride 0.9% (plus) 50 ML IV (04:06)
[2019-11-03 04:22] LABS: Basophils # 0.1 10^3/uL (0.0-0.1); Basophils % 0.8 %; Eosinophils # 0.1 10^3/uL (0.0-0.8); Eosinophils % 1.7 %; Hematocrit 41.7 % (37.0-47.0); Hemoglobin 13.9 g/dL (11.5-15.3); Lymphocytes # 3.3 10^3/uL (0.8-4.8); Lymphocytes % 46.4 %; Mean Corpuscular HGB Conc 33.3 g/dL (30.0-36.0); Mean Corpuscular Volume 89.9 fL (81-99); Monocytes # 0.8 10^3/uL (0.2-0.9); Monocytes % 10.6 %; Neutrophils # 2.7 10^3/uL (1.8-7.7); Neutrophils % 37.7 %; Nucleated Red Blood Cells % 0 %; Platelet Count 206 10^3/cmm (130-400); Red Blood Count 4.64 10^6/uL (4.1-5.3); Red Cell Distribution Width 14.3 % (12.1-15.1); White Blood Count 7.2 10^3/uL (4.0-10.0)
[2019-11-03 04:33] LABS: Alanine Aminotransferase 24 U/L (0-33); Albumin Level 2.9 g/dL (3.5-5.2); Alkaline Phosphatase 100 IU/L (35-105); Anion Gap 16.5 (5-19); Aspartate Amino Transferase 22 U/L (0-32); Blood Urea Nitrogen 16 mg/dL (6-20); Calcium 9.3 mg/dL (8.5-10.5); Carbon Dioxide 22 mmol/L (22-29); Chloride 96 mmol/L (98-107); Globulin 2.9 g/dL (1.3-4.6); Glomerular Filtration Rate 73.9 mL/min (90-130); Potassium 3.5 mmol/L (3.5-5.1); Sodium 131 mmol/L (136-145); Total Bilirubin 0.3 mg/dL (0.15-1.2); Total Protein 5.8 g/dL (6.6-8.7)
[2019-11-03 04:40] LABS: Glucose 536 mg/dL (74-109)
--- NOTE | 2019-11-03 04:51 | PC.NURSE ---
Patient has been educated mulitple times throughout this shift about making good choices of food and drink to keep BG in control and safe ranges. Patient continued to ask for juice throughout night and brought pizza. This RN educated and about effects of carbs from pizza. At 0435 patient asked for a few aspirins . This RN stated no current order for it and asked if patient was in pain. Patient admitted that was needing it as he has not taken his meds for a few days . Educated unable to give any medications not ordered for patient. 0445 Dr Valle notified of BG 536
[2019-11-03 07:38] LABS: Glucose Point of Care 358 mg/dL (70-110)
--- NOTE | 2019-11-03 08:04 | USCV_ITS ---
Sandra Jarquin Age: 59 Gender: F : 1960 Exam Date: 11/03/2019 11:23 Ordering Phys: Larry Solano MD Technologist: Edilia Newton Exam Location: [facility] [place] Indication: CHEST PAIN BP: 123 / 74 HR: 97 Rhythm: Sinus Technical Quality: Technically difficult study MEASUREMENTS (Male / Female) Normal Values 2D ECHO LV Diastolic Diameter PLAX 3.9 cm 4.2 - 5.9 / 3.9 - 5.3 cm LV Systolic Diameter PLAX 2.6 cm LV Chamber Size 3.9 cm IVS Diastolic Thickness 1.8 cm 0.6 - 1.0 / 0.6 - 0.9 cm IVS Systolic Thickness 2.2 cm LVPW Diastolic Thickness 1.3 cm 0.6 - 1.0 / 0.6 - 0.9 cm LVPW Systolic Thickness 1.3 cm RV Chamber Size 2.1 cm LVOT Diameter 1.9 cm LV Ejection Fraction 2D Teich 63.6 % LA Diameter 3.2 cm LA Width 2.4 cm LA Height 5.3 cm RA Width 1.9 cm RA Height 3.8 cm Aorta at Sinotubular Diameter 2.8 cm M-MODE LV Diastolic Diameter MM 5.3 cm 4.2 - 5.9 / 3.9 - 5.3 cm LV Systolic Diameter MM 3.6 cm LV Ejection Fraction MM Teich 61.4 % IVS Diastolic Thickness MM 1.6 cm 0.6 - 1.0 / 0.6 - 0.9 cm IVS Systolic Thickness MM 1.7 cm LVPW Diastolic Thickness MM 1.2 cm 0.6 - 1.0 / 0.6 - 0.9 cm LVPW Systolic Thickness MM 1.7 cm Aortic Annulus Diameter 3.4 cm LA Ao Ratio MM 0.9 MV E Point Septal Separation 0.4 cm DOPPLER AV Peak Velocity 149.0 cm/s LVOT Peak Velocity 138.0 cm/s AV Area Cont Eq vti 2.5 cm squared AV Area Cont Eq pk 2.6 cm squared MV Area PHT 3.9 cm squared Mitral E to A Ratio 0.9 MV E' Velocity 8.0 cm/s Mitral E to MV E' Ratio 12.5 Mitral E to LV E' Lateral Ratio 11.8 Mitral E to LV E' Septal Ratio 13.4 TR Peak Velocity 58.0 cm/s TR Peak Gradient 1.3 mmHg PV Peak Velocity 87.0 cm/s RV Acceleration Time 0.1 s RV Ejection Time 0.2 s RV AcT/ET 0.4 FINDINGS Left Ventricle Normal left ventricular size and systolic function, EF 60%.no regional wall motion abnormalities. Grade I/IV diastolic dysfunction (abnormal relaxation filling pattern), normal to mildly elevated filling pressures. Right Ventricle The right ventricle is normal in size and function. Right Atrium The right atrium is normal in size. Left Atrium The left atrium is normal in size. Mitral Valve No gross abnormalities noted Aortic Valve No gross abnormalities noted Tricuspid Valve Trace tricuspid valve regurgitation. Pulmonic Valve No gross abnormalities noted Pericardium Normal pericardium without effusion. Aorta Normal ascending aorta dimension. CONCLUSIONS Normal left ventricular size and systolic function, EF 60%. No regional wall motion abnormalities. Grade I/IV diastolic dysfunction (abnormal relaxation filling pattern), normal to mildly elevated filling pressures. Trace tricuspid valve regurgitation. Normal chamber sizes. There is no pericardial effusion. There are no intracardiac masses. No previous study is available for comparison. Dr Madelyn Gifford MD FACC (Electronically Signed) Final Date: 03 November 2019 13:24 S
[2019-11-03] MEDS: nicotine 21 mg Patch 1 PATCH TRANSDERMA (08:41)
[2019-11-03] MEDS: buPROPion SR (12 HR) 150 mg Tablet PO ×2 (08:41→17:19)
[2019-11-03] MEDS: gabapentin 100 mg Capsule PO ×2 (08:42→17:19)
[2019-11-03] MEDS: oxybutynin chloride XL 5 MG TABLET 10 MG PO (08:42)
[2019-11-03] MEDS: amoxicillin-clav 875-125 mg Tablet 1 TAB PO ×2 (08:42→17:19)
[2019-11-03] MEDS: gemfibrozil 600 mg Tablet PO ×2 (08:42→17:20)
[2019-11-03] MEDS: atorvastatin 40 mg Tablet PO (08:42)
[2019-11-03] MEDS: potassium chloride premix 40 MEQ/100 ML PREMIX 25 MEQ IV (08:42)
[2019-11-03] MEDS: nystatin powder 15 gm Btl 1 APPLIC TOPICAL ×2 (08:43→17:21)
[2019-11-03] MEDS: nystatin cream 30 gm 1 APPLIC TOPICAL ×2 (08:43→17:20)
[2019-11-03] MEDS: clotrimazole 1% cream 30 gm 1 APPLIC TOPICAL ×2 (08:44→17:22)
[2019-11-03 12:29] LABS: Glucose Point of Care 315 mg/dL (70-110)
--- NOTE | 2019-11-03 15:52 | PM.PN ---
Subjective Subjective: Interval history: This morning patient is sitting up in bed, denies chest pain, shortness of breath, lightheadedness, dizziness, no nausea, no vomiting, states that her rash has improved, continues to have rash under her bilateral breasts So far patient has used roughly 160 units of short acting insulin in the last 48 hours, will continue sliding scale, Levemir 25 units twice daily Vitals/I&O/Wt Last Vital Signs Temp 98.7 F 11/03/19 09:00 Pulse 91 11/03/19 14:00 Resp 16 11/03/19 14:00 BP 129/90 11/03/19 13:00 Pulse Ox 96 11/03/19 12:00 11/03/19 11/03/19 11/03/19 06:59 14:59 22:59 Intake Total 1411.25 / 4139.743 720 / 720 Balance 1411.25 / 4139.743 720 / 720 Weight last 48 hrs Weight 107.53 kg Weight 108.272 kg Physical Exam Const: COMMON NORMALS: no apparent distress and oriented x3 HENMT: COMMON NORMALS: normocephalic HEAD & SCALP: normocephalic Neck/C-Spine: COMMON NORMALS: no JVD Resp: COMMON NORMALS: normal respiratory effort, no retractions, no use of accessory muscles and clear to auscultation bilaterally AUSCULTATION: clear to auscultation bilaterally Cardio: COMMON NORMALS: no JVD, regular rate, regular rhythm, S1 normal heart sound and S2 normal heart sound RATE: regular rate RHYTHM: regular rhythm HEART SOUNDS: S1 normal and S2 normal GI: COMMON NORMALS: normal to inspection, nondistended, normoactive bowel sounds, soft to palpation, non-tender, no hepatosplenomegaly, no masses and no bruits PALPATION: Yes soft and Yes no hepatosplenomegaly Extremity: COMMON NORMALS: normal capillary refill, no clubbing, cyanosis or edema, no calf tenderness and no pedal edema Neuro: COMMON NORMALS: oriented x3 Psych: COMMON NORMALS: mental status grossly normal Skin: NARRATIVE SKIN EXAM: Skin rash under pannus, with a bedsore, minimal erythema, minimal drainage Data : 11/03/19 02:35 11/03/19 02:35 Micro: Microbiology 11/01/19 14:20 Urine Culture - Final Urine,Clean Catch 11/01/19 19:22 Gram Stain - Final Breast - #1 Wound Culture - Preliminary 11/02/19 14:00 Gram Stain - Final Abdomen 11/01/19 19:20 MRSA Culture - Final Nose 11/01/19 14:04 Blood Culture - Preliminary Blood NEGATIVE TO DATE 11/01/19 13:58 Blood Culture - Preliminary Blood NEGATIVE TO DATE A&P Assessment and plan (1) Cellulitis: Status: Acute Code(s): L03.90 - Cellulitis, unspecified (2) Type 2 diabetes mellitus: Status: Acute Code(s): E11.9 - Type 2 diabetes mellitus without complications (3) DKA (diabetic ketoacidoses): Status: Acute Qualifiers: Diabetes mellitus complication detail: without coma Diabetes mellitus type: type 2 Qualified Code(s): E11.10 - Type 2 diabetes mellitus with ketoacidosis without coma Code(s): E11.10 - Type 2 diabetes mellitus with ketoacidosis without coma Additional A&P Information Diabetic ketoacidosis: Resolved, hemoglobin A1c 13, start Levemir 25 units twice daily, high-dose sliding scale, calculate insulin requirements of sliding scale, but it seems like patient requires roughly 80 units in the 24-hour period of insulin Cellulitis: Topical bacterial infection with localized fungal infection, de-escalate Bactrim, topical nystatin COPD: Saturating high 90s on room air, continue nebulizers as needed High blood pressures: Start lisinopril 10 mg once daily Continue chronic home medications for depression. Full code. Diabetic diet Lovenox for DVT prophylaxis Transfer to the general medical floors Attestations Medical Necessity Statement*: Patient requires continued hospitalization, for diabetic ketoacidosis, Coding Level of Care Code Acute Insurance Claims Adjuster for [facility] Diagnoses Cellulitis L03.90 Type 2 diabetes mellitus E11.9 DKA (diabetic ketoacidoses) E11.10 Diabetes mellitus complication detail: without coma Diabetes mellitus type: type 2
[2019-11-03 16:46] LABS: Glucose Point of Care 325 mg/dL (70-110)
[2019-11-03] MEDS: enoxaparin 40 mg/0.4 mL Syringe SUBCUT (18:04)
[2019-11-03 20:36] LABS: Glucose Point of Care 288 mg/dL (70-110)
[2019-11-03] MEDS: cyclobenzaprine 10 mg Tablet PO (21:22)
[2019-11-03] MEDS: sulfamethoxazole-trimeth DS 160-800 mg Tablet 1 TAB PO (21:25)
[2019-11-04] VITALS: BP 126/76; PULSE 86; RESP 19; TEMP 36.7; O2SAT 95
[2019-11-04 03:46] VITALS: BP 124/72; PULSE 85; RESP 18; TEMP 36.8; O2SAT 94
[2019-11-04] MEDS: sodium chloride 0.9% 1,000 ML 75 ML IV (05:23)
[2019-11-04 06:31] LABS: Glucose Point of Care 295 mg/dL (70-110)
[2019-11-04 06:41] LABS: Basophils % 0.6 %; Eosinophils # 0.2 10^3/uL (0.0-0.8); Eosinophils % 3.2 %; Hematocrit 41.1 % (37.0-47.0); Hemoglobin 13.8 g/dL (11.5-15.3); Lymphocytes # 2.7 10^3/uL (0.8-4.8); Lymphocytes % 50.3 %; Mean Corpuscular HGB Conc 33.6 g/dL (30.0-36.0); Mean Corpuscular Hemoglobin 29.7 pg (28.0-34.0); Mean Corpuscular Volume 88.6 fL (81-99); Mean Platelet Volume 12.1 fL (7.4-10.4); Monocytes # 0.5 10^3/uL (0.2-0.9); Monocytes % 10.1 %; Neutrophils # 1.7 10^3/uL (1.8-7.7); Neutrophils % 31.7 %; Nucleated Red Blood Cells % 0 %; Platelet Count 187 10^3/cmm (130-400); Red Blood Count 4.64 10^6/uL (4.1-5.3); Red Cell Distribution Width 14.3 % (12.1-15.1); White Blood Count 5.4 10^3/uL (4.0-10.0)
[2019-11-04 07:09] LABS: Alanine Aminotransferase 28 U/L (0-33); Albumin Level 3.2 g/dL (3.5-5.2); Alkaline Phosphatase 99 IU/L (35-105); Anion Gap 17.8 (5-19); Aspartate Amino Transferase 28 U/L (0-32); Blood Urea Nitrogen 12 mg/dL (6-20); Calcium 9.3 mg/dL (8.5-10.5); Carbon Dioxide 22 mmol/L (22-29); Chloride 102 mmol/L (98-107); Globulin 2.9 g/dL (1.3-4.6); Glomerular Filtration Rate 86.2 mL/min (90-130); Glucose 318 mg/dL (74-109); Magnesium 2.2 mg/dL (1.7-2.3); Phosphorus 2.9 mg/dL (2.5-4.5); Potassium 3.8 mmol/L (3.5-5.1); Sodium 138 mmol/L (136-145); Total Bilirubin 0.3 mg/dL (0.15-1.2); Total Protein 6.1 g/dL (6.6-8.7)
[2019-11-04 07:56] VITALS: BP 137/72; PULSE 87; RESP 18; TEMP 36.8; O2SAT 96
[2019-11-04] MEDS: amoxicillin-clav 875-125 mg Tablet 1 TAB PO (08:40)
[2019-11-04] MEDS: buPROPion SR (12 HR) 150 mg Tablet PO (08:40)
[2019-11-04] MEDS: gabapentin 100 mg Capsule PO (08:41)
[2019-11-04] MEDS: nicotine 21 mg Patch 1 PATCH TRANSDERMA (08:41)
[2019-11-04] MEDS: atorvastatin 40 mg Tablet PO (08:42)
[2019-11-04] MEDS: gemfibrozil 600 mg Tablet PO (08:42)
[2019-11-04] MEDS: nystatin powder 15 gm Btl 1 APPLIC TOPICAL (08:43)
[2019-11-04] MEDS: clotrimazole 1% cream 30 gm 1 APPLIC TOPICAL (08:44)
[2019-11-04] MEDS: nystatin cream 30 gm 1 APPLIC TOPICAL (08:44)
[2019-11-04] MEDS: oxybutynin chloride XL 5 MG TABLET 10 MG PO (08:53)
--- NOTE | 2019-11-04 10:09 | DCPLANNER ---
Pg 2 of IM explained to & signed by pt. She is hopeful that she will be d/c'd today, she is ready. No questions, copy provided.
[2019-11-04 11:05] VITALS: BP 126/74; PULSE 88; RESP 18; TEMP 36.7; O2SAT 97
[2019-11-04 11:41] LABS: Glucose Point of Care 293 mg/dL (70-110)
[2019-11-04 13:21] VITALS: TEMP 36.7
[2019-11-04 13:49] VITALS: TEMP 36.7
--- NOTE | 2019-11-04 13:55 | PC.CHAP ---
Pastoral Care Encounter/Spiritual Assessment Type of Contact [] Declined hull drafter visit [] Patient/Family/Request visit [] Outpatient visit [] Follow-up visit [] Physician referral [] Code/Alert [x] Routine visit [] Staff referral [] Actively dying [] Patient sleeping [] Family support [] [] Out of room [] Palliative care [] [] Receiving care in room [] Pre-surgical visit [] Trauma [] Long length of stay [] ICU visit [] Other: Relational/Emotional Strength [x] Patient feels connected with others/family/visitors/staff [] Distress [] Loneliness/isolation [] Abandonment Spirituality of Patient [] Person of [place] [] Attends Scientology of their [place] [x] Believes in Prayer [] Reads Bible or Baptism materials [] There are Spiritual issues to be addressed [place] Interventions [x] Prayer [x] Active listening [x] Non-anxious presence [x] Spiritual/emotional support [] Crisis/trauma care [] Spiritual counseling [] Bereavement support [] Provided bereavement packet [] Provided Bible/devotional materials [] Provided toy/stuffed animal, coloring book to patient or family member [] Provided Communion [] Anointing/[place] [] Salvation [x] Completed spiritual assessment [] Other: Impact on Illness or Injury [] Angry [] Fearful [] Anxious [] Often cries [] Exhaustion [] Unable to work [] Unable to attend episcopal [] Unable to walk/stand [] Unable to read [] Unable to drive [] Unable to eat/drink [] Unable to sleep [] Unable to be with family [] Patient intubated [] Other: Summary she going to go home today, was wanting to know her blood type. Time spent with patient 10 min.
--- NOTE | 2019-11-04 19:34 | PM.DCS ---
Discharge Providers Date of Admission: 11/01/19 16:51 Date of Discharge: Date of Discharge: November 04, 2019 Attending Provider at Admission: Mary Singh MD Attending Provider at Discharge: Larry Solano MD Diagnoses at Discharge Discharge Diagnosis (1) Cellulitis: Status: Acute (2) Type 2 diabetes mellitus: Status: Acute (3) DKA (diabetic ketoacidoses): Status: Acute Qualifiers: Diabetes mellitus complication detail: without coma Diabetes mellitus type: type 2 Qualified Code(s): E11.10 - Type 2 diabetes mellitus with ketoacidosis without coma Reason for Visit Reason for Visit: Reason For Visit: DKA Hospital Course Discharge Summary: This is a 59-year-old female with a past medical history of depression, morbid obesity, COPD, fibromyalgia, chronic smoker, hyperlipidemia, poorly controlled type 2 diabetes mellitus hemoglobin A1c 13 who presents to the emergency room due to frequent falls since Tuesday. Patient was admitted for diabetic ketoacidosis, admitted to the ICU, received a diabetic ketoacidosis protocol, did well, short acting and long-acting insulin, did well, was moved to ICU, to the general medical floors, did well, received diabetic education. On discharge patient was discharged on Levemir 30 units twice daily along with NovoLog sliding scale, and metformin. Patient was advised to follow-up with primary care provider in 2 weeks. Patient was also found to have an area of cellulitis under her pannus, received IV antibiotics, transition to oral antibiotics, discharged on Augmentin and Bactrim. Physical Exam Const: COMMON NORMALS: no apparent distress and oriented x3 GENERAL APPEARANCE: cooperative and comfortable HENMT: COMMON NORMALS: normocephalic HEAD & SCALP: normocephalic Neck/C-Spine: COMMON NORMALS: full ROM, no lymphadenopathy, no JVD and thyroid normal THYROID: thyroid normal Lymph: LYMPHATIC: no lymphadenopathy noted Resp: COMMON NORMALS: normal respiratory effort, no retractions, no use of accessory muscles and clear to auscultation bilaterally AUSCULTATION: clear to auscultation bilaterally Cardio: COMMON NORMALS: no JVD, regular rate, regular rhythm, S1 normal heart sound, S2 normal heart sound, no gallops, no clicks and no murmurs RATE: regular rate RHYTHM: regular rhythm HEART SOUNDS: S1 normal and S2 normal GI: COMMON NORMALS: normal to inspection, nondistended, normoactive bowel sounds, soft to palpation, non-tender and no hepatosplenomegaly PALPATION: Yes soft and Yes no hepatosplenomegaly Extremity: COMMON NORMALS: normal to inspection, full ROM and no pedal edema Neuro: COMMON NORMALS: oriented x3, CN's II-XII intact bilaterally, moves all extremities and no focal motor deficits Psych: COMMON NORMALS: mental status grossly normal, thought process normal and cooperative THOUGHT PROCESS: normal thought process Discharge Data Data Completed and Pending: Completed Studies During Hospitalization Category Date Time Status CT head wo con* 7 0450 Urgent Cat Scan 11/01/19 13:36 Completed XR chest 1V carmelo ble [id number] Urgent Exams 11/01/19 13:36 Completed CV echo complete* [id number] Routine Ultrasound 11/03/19 08:04 Completed Pending at discharge Category Date Time Status Blood Culture Sta t Lab 11/01/19 14:04 Results Wound Culture and Gram Stain Routin e Lab 11/02/19 14:00 Results Wound Culture and Gram Stain Stat Lab 11/01/19 19:22 Results Labs from last 24 hours 11/04/19 11/04/19 11/04/19 11:06 06:26 06:10 WBC RBC Hgb Hct MCV MCH MCHC RDW Plt Count MPV Neut % (Auto) Lymph % (Auto) Mcintosh % (Auto) Eos % (Auto) Baso % (Auto) Neut # (Auto) Lymph # (Auto) Mcintosh # (Auto) Eos # (Auto) Baso # (Auto) Nucleated RBC % (a uto) Nucleated RBCs # Sodium 138 Potassium 3.8 Chloride 102 Carbon Dioxide 22 Anion Gap 17.8 BUN 12 Creatinine 0.7 GFR Calculation 86.2 L Glucose 318 H POC Glucose 293 295 Calcium 9.3 Phosphorus 2.9 Magnesium 2.2 Total Bilirubin 0.3 AST 28 ALT 28 Alkaline Phosphata se 99 Total Protein 6.1 L Albumin 3.2 L Globulin 2.9 11/04/19 11/03/19 06:10 20:14 WBC 5.4 RBC 4.64 Hgb 13.8 Hct 41.1 MCV 88.6 MCH 29.7 MCHC 33.6 RDW 14.3 Plt Count 187 MPV 12.1 H Neut % (Auto) 31.7 Lymph % (Auto) 50.3 Mcintosh % (Auto) 10.1 Eos % (Auto) 3.2 Baso % (Auto) 0.6 Neut # (Auto) 1.7 L Lymph # (Auto) 2.7 Mcintosh # (Auto) 0.5 Eos # (Auto) 0.2 Baso # (Auto) 0.0 Nucleated RBC % (a uto) 0 Nucleated RBCs # 0.0 Sodium Potassium Chloride Carbon Dioxide Anion Gap BUN Creatinine GFR Calculation Glucose POC Glucose 288 Calcium Phosphorus Magnesium Total Bilirubin AST ALT Alkaline Phosphata se Total Protein Albumin Globulin Vitals: Last Vital Signs Temp 98.1 F 11/04/19 13:49 Pulse 88 11/04/19 11:05 Resp 18 11/04/19 11:05 BP 126/74 11/04/19 11:05 Pulse Ox 97 11/04/19 11:05 Discharge Plan Discharge Patient Disposition: Home, Self-Care Condition: Stable Prescriptions: New atorvastatin 40 mg Tablet 20 mg PO DAILY 30 Days Qty: 30 RF: 0 bupropion HCl 150 mg Tablet Sustained-Release 12 Hr 150 mg PO BID 30 Days Qty: 60 RF: 0 sulfamethoxazole-trimethoprim 800-160 mg Tablet 1 tab PO BEDTIME 10 Days Qty: 20 RF: 0 gemfibrozil 600 mg Tablet 600 mg PO BID 30 Days Qty: 60 RF: 0 nystatin 100,000 unit/gram Cream 1 applic topical BID PRN (Reason: rash) 30 Days Qty: 4 RF: 0 oxybutynin chloride 5 mg Tablet Extended Release 24hr 10 mg PO DAILY 30 Days Qty: 30 RF: 0 gabapentin 100 mg Capsule 100 mg PO BID 30 Days Qty: 60 RF: 0 Nyamyc 100,000 unit/gram Powder 1 applic topical BID PRN (Reason: rash) 30 Days Qty: 8 RF: 0 amoxicillin-pot clavulanate 875-125 mg Tablet 1 tab PO BID 10 Days Qty: 20 RF: 0 Levemir FlexTouch U-100 Insuln 100 unit/mL (3 mL) insulin pen 30 unit SUBCUT Q12H 30 Days Qty: 18 RF: 1 Novolog Flexpen U-100 Insulin 100 unit/mL (3 mL) insulin pen See Rx Instructions .ROUTE .COMPLEX Qty: 15 RF: 1 metformin 1,000 mg tablet extended release 24hr 1,000 mg PO DAILY 90 Days Qty: 90 RF: 0 Continued cyclobenzaprine 10 mg Tablet 10 mg PO BID PRN (Reason: Muscle Spasm) RF: 0 amitriptyline 50 mg Tablet 150 mg PO BEDTIME 30 Days Qty: 30 RF: 0 Nexium 40 mg Capsule,Delayed Release(Dr/Ec) 40 mg PO DAILY 30 Days Qty: 30 RF: 0 Discharge Orders: Discharge Order (Routine); Ordered 11/04/19 Ordered By: Larry Solano Other Ambulatory Orders: Comprehensive Metabolic Panel (Routine) Timeframe: 2 Weeks Facility: [facility] - Location: Lab - Main Lab Ordered By: Larry Solano [place] [facility] [place]) [Outside] Larry Solano MD [Hospitalist] - 2 weeks (Please call [facility]. Please call on Tuesday to schedule an appointment. ) Discharge Diet: Diabetic Discharge Activity: Resume usual activity Patient Instructions: Diabetes and Diet, Sulfamethoxazole/Trimethoprim (By mouth), Oxybutynin (By mouth), Bupropion (By mouth), Nystatin (On the skin), Amoxicillin/Clavulanate Potassium (By mouth), Gabapentin (By mouth), Metformin (By mouth), Atorvastatin (By mouth), Insulin Aspart, Recombinant (Injection), Insulin Detemir (Injection), Foot Care for Diabetics, How to Check Your Blood Sugar (DC), Diabetic Ketoacidosis (GEN), Diabetic Foot Care (DC), Diabetic Hypoglycemia (DC), Diabetic Hypoglycemia (GEN), Diabetes Mellitus Type 2 in Adults (GEN), Meal Planning with Diabetes Exchanges (DC), Diabetic Neuropathy (GEN), Managing Diabetes During Sick Days (DC), Oral Health and Diabetes Activity Restrictions/Additional Instructions: -Check blood sugars 3 times daily -If blood sugar greater than 500 call primary care -If blood sugar less than 60, drink orange juice, call primary care -Please record blood sugars 3 times daily, bring blood sugar logs her primary care physician's office -For your hypertriglyceridemia please use statin and gemfibrozil as prescribed -If you have muscle aches and pains, stop statin and gemfibrozil and call primary care -Please do blood work in 2 weeks before seeing primary care -Please take antibiotics as prescribed -Please use nystatin as needed for candidiasis infection Discharge Date/Time: 11/04/19 13:50 Discharge Attestations Time Spent in Discharge Care*: less than 30 min Quality Metrics Clinical Quality Measures During this hospital stay, did patient experience: None Coding Level of Care Code Acute Charge Coordinator for [facility] Diagnoses Cellulitis L03.90 Type 2 diabetes mellitus E11.9 DKA (diabetic ketoacidoses) E11.10 Diabetes mellitus complication detail: without coma Diabetes mellitus type: type 2
== END 2019-11-04 13:50 | disposition home or self-care (01) | DRG 639 ==
LOC: ER 14:02 → ICU 16:52 → MEDSURG 11-03 18:14
PROVIDERS: Student in an Organized Health Care Education/Training Program; Admitting Provider Student in an Organized Health Care Education/Training Program; Emergency Provider Family Medicine; Visit Provider Family Medicine
DX: E11.10 Type 2 diabetes mellitus with ketoacidosis without coma (principal); E66.01 Morbid (severe) obesity due to excess calories; F32.9 Major depressive disorder, single episode, unspecified; Z68.37 Body mass index [BMI] 37.0-37.9, adult; M79.7 Fibromyalgia; J44.9 Chronic obstructive pulmonary disease, unspecified; E78.5 Hyperlipidemia, unspecified; I10 Essential (primary) hypertension; B36.9 Superficial mycosis, unspecified; Z85.41 Personal history of malignant neoplasm of cervix uteri; Z79.4 Long term (current) use of insulin; Z79.899 Other long term (current) drug therapy
CPT/HCPCS: 12345; 36415; 36416; 36600; 70450; 71045; 80048; 80053; 80061; 80307; 81001; 81025; 82009; 82803; 82962; 83036; 83540; 83550; 83605; 83721; 83735; 84100; 84145; 84443; 85025; 87040; 87070; 87086; 87205; 87641; 93306; 94640; 96365; 96366; 96372; 97110; 97116; 97162; 99282; J1650; J1815; J2001; J2543; J3370; J3480; J7030; J7050

== ENCOUNTER 2020-07-17 16:33 | Emergency (ER) | payer MEDICARE, MEDICAID, SELFPAY ==
[2020-07-17 16:48] VITALS: BP 155/87; PULSE 85; RESP 18; TEMP 36.9; O2SAT 96; BMI 36.5
--- NOTE | 2020-07-17 18:35 | XR_ITS ---
WS: [id number] Portable AP upright chest, 07/17/2020 Clinical Data: Weakness Comparison: Portable chest, 11/01/2019 Findings: No nodules, masses or effusions are seen. The heart is slightly enlarged. The pulmonary vas cularity is not increased. No pneumonia or pneumothorax is seen. The patient has a poor inspiratory e ffort. XR/XR chest 1V portable [id number] Impression: Cardiomegaly.
--- NOTE | 2020-07-17 18:36 | ECG_ITS ---
[facility] Test Date: 2020-07-17 Pat Name: Sandra Jarquin Department: Room: Gender: Female Pharmaceutical Specialty Representative: : 1960 Requested By: Niyah You Order Number: [id number] Rhys MD: Yun Gore M.D. Measurements Intervals [place] Rate: 81 P: 23 MD: 193 QRS: 43 QRSD: 96 T: 60 QT: 395 QTc: 459 Interpretive Statements SINUS RHYTHM LOW QRS VOLTAGE IN PRECORDIAL LEADS [QRS DEFLECTION < 1.0 mV IN CHEST LEADS] No previous ECG available for comparison Electronically Signed On 07-18-2020 18:07:56 CDT by Yun Gore M.D. [id number]
--- NOTE | 2020-07-17 18:37 | W.ED.WEAKNES ---
HPI - Weakness General: Chief complaint: Weakness Stated complaint: trouble walking/talking/knees buckling/drop things Time Seen by Provider: 07/17/20 18:30 Source: patient Limitations: no limitations History of Present Illness: HPI Narrative: Sandra is a 60-year-old female who comes in complaining of generalized weakness and tingling in her fingers. Patient states that she has felt this way ever since she was discharged from the hospital in December or January for insulin-dependent diabetes mellitus. Has any headache, vomiting, fever, chest pain, shortness of breath, abdominal pain or other complaint. Patient states the tingling in her fingers is new. It is bilateral. She denies any focal weakness she just states that she feels weak and dehydrated over her entire body. Associated symptoms: Denies chest pain, chills, confusion, melena, diaphoresis, dysuria, easy bruising, fever(s), headache(s), nausea, syncope or vomiting Review of Systems Const: Reports: fatigue and malaise; Denies: fever(s), chills, body aches or diaphoresis Eyes: Denies: change in vision, blurry vision, photophobia, eye discomfort, eye discharge, eye redness or yellow eyes ENMT: Denies: throat pain, odynophagia, hoarseness, swelling of lips/tongue, ear or mastoid pain, ear discharge, change in hearing or nasal discharge Card: Denies: chest pain, palpitations, irregular heart rhythm, edema, lightheadedness, syncope, pre-syncope, dyspnea on exertion or orthopnea Resp: Denies: dyspnea, productive cough, non-productive cough, wheezing, hemoptysis or chest congestion GI: Denies: abdominal pain, nausea, vomiting, hematemesis, coffee ground emesis, heartburn, diarrhea, constipation, GI cramping, hematochezia or melena : Denies: flank pain, dysuria, urinary frequency, urinary urgency or hematuria Musc: Denies: neck pain, back pain, extremity pain, extremity swelling, joint pain, joint swelling, joint redness, joint warmth or joint stiffness Skin/Breast: Denies: rash, pruritus, erythema, skin pain or skin tenderness Neuro: Denies: headache(s), numbness in extremities, weakness in extremities, sensory changes, lack of coordination, difficulty walking, dizziness, vertigo, confusion, Slurred speech present or seizure-like activity Gt/Lymph: Denies: easy bruising, easy bleeding, petechiae, purpura or enlarged lymph nodes All/Imm: Denies: urticaria, throat swelling, tongue swelling, facial swelling or acute wheezing PFSH ED PFSH: Medical History COPD (chronic obstructive pulmonary disease) Depression History of cervical cancer Hypertension Morbid obesity Type 2 diabetes mellitus Family History Other Cancer Chronic kidney disease (CKD) Social History Smoking and tobacco status: current every day smoker Alcohol intake: never Household members: family Housing: House Physical Exam Const: COMMON NORMALS: no acute distress, patient oriented x3, no limitations and alert GENERAL APPEARANCE: cooperative HENMT: COMMON NORMALS: normocephalic, atraumatic, external ears normal, EAC's normal and Normal external nose present HEAD & SCALP: normal to inspection, normocephalic and atraumatic FACE & SINUS: normal facial exam and face symmetric NOSE: Normal external nose present and Normal nares present EXTERNAL EAR: Yes external ears normal EXTERNAL AUDITORY CANAL: EAC's normal MOUTH: Normal oral and palatal mucosa present, lip normal and tongue normal Eye: COMMON NORMALS: Equal, round and reactive pupils present and conjunctivae normal GENERAL EYE: appearance normal, both eyes and all related structures ALIGNMENT: Yes alignment normal PERIORBITAL: periorbital findings normal EYELID: eyelids normal CONJUNCTIVA: Yes conjunctivae normal SCLERA: sclerae normal PUPIL: Yes Equal, round and reactive pupils present Neck/C-Spine: COMMON NORMALS: full ROM, no lymphadenopathy, supple, no meningeal signs and no JVD GENERAL: Yes normal visual inspection and Yes trachea midline Chest: COMMONS NORMALS: normal inspection of the chest and normal palpation of entire chest wall Resp: COMMON NORMALS: normal respiratory effort, No retractions, No use of accessory muscles and clear to auscultation bilaterally EFFORT & INSPECTION: Yes able to speak in complete sentences and Yes symmetric chest movement AUSCULTATION: clear to auscultation bilaterally, no crackles, no rales, no rhonchi and no wheezes Cardio: COMMON NORMALS: no JVD, regular rate, regular rhythm, S1 normal heart sound present and S2 normal heart sound present RATE: regular rate RHYTHM: regular rhythm HEART SOUNDS: S1 normal heart sound present, S2 normal heart sound present, no click, no gallops, no murmurs and no rubs GI: COMMON NORMALS: Soft to palpation and No hepatosplenomegaly present PALPATION: Yes Soft to palpation, No Tenderness to palpation present (GI), No Guarding due to palpation present (GI), No Rigid due to palpation, Yes No hepatosplenomegaly present, No Hernia present, No Palpable mass present and No Pulsatile mass present : COMMON NORMALS: Yes no CVA tenderness BLADDER/KIDNEY EXAM: Yes no CVA tenderness EXTERNAL FEMALE EXAM: No Hernia present Back/Pelvis: COMMON NORMALS: no CVA tenderness, thoracic and lumbar spine normal to inspection, no thoracic nor lumbar tenderness and thoraco-lumbar ROM normal Extremity: COMMON NORMALS: normal to inspection, full ROM, capillary refill normal, no joint enlargement, no clubbing, cyanosis or edema and no calf tenderness Neuro: COMMON NORMALS: patient oriented x3, CN's II-XII intact bilaterally, moves all extremities, no focal motor deficits and no sensory deficits noted SENSORIUM/ORIENTATION: Yes alert MENINGEAL SIGNS: Yes no meningeal signs SPEECH: speech normal Psych: COMMON NORMALS: mental status grossly normal, Normal thought process present, cooperative, normal affect, speech normal and activity/motor behavior normal SPEECH: Yes normal speech THOUGHT PROCESS: Normal thought process present Skin: COMMON NORMALS: no rashes or lesions noted, turgor normal, no jaundice, no petechiae and no mottling GENERAL SKIN EXAM: no rashes or lesions noted and turgor normal Procedures EJ/Peripheral Line Arm R: Time Out Performed: Yes Skin Cleansed in Sterile Fashion: Yes Size (gauge): 18 IV Secured and Dressing Applied: Yes Patient Tolerated Procedure: well Additional Comments: Ultrasound utilized throughout procedure. Course Vital Signs: Vital signs: Vital Signs Temperature 98.5 F 07/17/20 16:48 Pulse Rate 80 07/17/20 21:37 Respiratory Rate 18 07/17/20 21:37 Blood Pressure 130/73 07/17/20 21:37 Pulse Oximetry 96 07/17/20 21:37 MDM - Weakness Lab Data: Attestation: I reviewed the patient's lab results. Labs: Lab Results 07/17/20 07/17/20 07/17/20 Range/Units 19:02 19:02 19:02 WBC 12.2 H (4.0-10.0) 10^3/ uL RBC 4.96 (4.1-5.3) 10^6/u L Hgb 14.7 (11.5-15.3) g/dL Hct 46.2 (37.0-47.0) % MCV 93.1 (81-99) fL MCH 29.6 (28.0-34.0) pg MCHC 31.8 (30.0-36.0) g/dL RDW 14.2 (12.1-15.1) % Plt Count 325 (130-400) 10^3/c mm MPV 10.5 H (7.4-10.4) fL Neut % (Auto) 58.0 % Lymph % (Auto) 29.2 % [place] % (Auto) 6.7 % Eos % (Auto) 3.9 % Baso % (Auto) 0.7 % Neut # (Auto) 7.07 (1.8-7.7) 10^3/u L Lymph # (Auto) 3.6 (0.8-4.8) 10^3/u L [place] # (Auto) 0.8 (0.2-0.9) 10^3/u L Eos # (Auto) 0.5 (0.0-0.8) 10^3/u L Baso # (Auto) 0.1 (0.0-0.1) 10^3/u L Nucleated RBC % (a uto) 0 % Nucleated RBCs # 0.0 /100WBC Sodium 143 (136-145) mmol/L Potassium 3.9 (3.5-5.1) mmol/L Chloride 103 (98-107) mmol/L Carbon Dioxide 25 (22-29) mmol/L Anion Gap 18.9 (5-19) BUN 19 (6-20) mg/dL Creatinine 0.9 (0.5-0.9) mg/dL GFR Calculation 64.3 L (90-130) mL/min Glucose 103 (65-115) mg/dL Calculated Osmolal ity 299 H (285-295) mOsm/k g Calcium 10.2 (8.5-10.5) mg/dL Total Bilirubin 0.2 (0.15-1.2) mg/dL AST 25 (0-32) U/L ALT 24 (0-33) U/L Alkaline Phosphata se 102 (35-105) IU/L Troponin T Baselin e 14 H (0-10) ng/L Total Protein 7.7 (6.6-8.7) g/dL Albumin 4.8 (3.5-5.2) g/dL Globulin 2.9 (1.3-4.6) g/dL Urine Color (Yellow) Urine Appearance (CLEAR) Urine pH (5-7) Ur Specific Gravit y (1.005-1.030) Urine Protein (Negative) Urine Glucose (UA) (Normal) Urine Ketones (Negative) Urine Blood (Negative) Urine Nitrate (Negative) Urine Bilirubin (Negative) Urine Urobilinogen (Negative) mg/dL Ur Leukocyte Corin ase (Negative) Urine RBC (0-2) /hpf Urine WBC (0-5) /hpf Ur Squamous Epith Cells (0-5) /hpf Amorphous Sediment Urine Bacteria (NONE) /hpf SARS-CoV-2 Ag (Rap id) (Negative) 07/17/20 07/17/20 Range/Units 19:20 19:45 WBC (4.0-10.0) 10^3/ uL RBC (4.1-5.3) 10^6/u L Hgb (11.5-15.3) g/dL Hct (37.0-47.0) % MCV (81-99) fL MCH (28.0-34.0) pg MCHC (30.0-36.0) g/dL RDW (12.1-15.1) % Plt Count (130-400) 10^3/c mm MPV (7.4-10.4) fL Neut % (Auto) % Lymph % (Auto) % [place] % (Auto) % Eos % (Auto) % Baso % (Auto) % Neut # (Auto) (1.8-7.7) 10^3/u L Lymph # (Auto) (0.8-4.8) 10^3/u L [place] # (Auto) (0.2-0.9) 10^3/u L Eos # (Auto) (0.0-0.8) 10^3/u L Baso # (Auto) (0.0-0.1) 10^3/u L Nucleated RBC % (a uto) % Nucleated RBCs # /100WBC Sodium (136-145) mmol/L Potassium (3.5-5.1) mmol/L Chloride (98-107) mmol/L Carbon Dioxide (22-29) mmol/L Anion Gap (5-19) BUN (6-20) mg/dL Creatinine (0.5-0.9) mg/dL GFR Calculation (90-130) mL/min Glucose (65-115) mg/dL Calculated Osmolal ity (285-295) mOsm/k g Calcium (8.5-10.5) mg/dL Total Bilirubin (0.15-1.2) mg/dL AST (0-32) U/L ALT (0-33) U/L Alkaline Phosphata se (35-105) IU/L Troponin T Baselin e (0-10) ng/L Total Protein (6.6-8.7) g/dL Albumin (3.5-5.2) g/dL Globulin (1.3-4.6) g/dL Urine Color Yellow (Yellow) Urine Appearance Hazy A (CLEAR) Urine pH 6 (5-7) Ur Specific Gravit y 1.015 (1.005-1.030) Urine Protein Neg (Negative) Urine Glucose (UA) Norm (Normal) Urine Ketones Negative (Negative) Urine Blood 2+ H (Negative) Urine Nitrate Positive H (Negative) Urine Bilirubin Neg (Negative) Urine Urobilinogen Neg (Negative) mg/dL Ur Leukocyte Corin ase Negative (Negative) Urine RBC 0-4 H (0-2) /hpf Urine WBC 0-4 H (0-5) /hpf Ur Squamous Epith Cells 0-4 H (0-5) /hpf Amorphous Sediment Not Reportable Urine Bacteria 4+ H (NONE) /hpf SARS-CoV-2 Ag (Rap id) Negative (Negative) Imaging Data^: CXR: Attestation: I personally reviewed and interpreted this imaging study as follows: My impression: Moderate interstitial prominence. CT Head: Radiologist's impression: [address] [address] [address] Scan Report Signed with Elizaenda Patient: Sandra Jarquin Unit #: [id number] : 1960 Age/Sex: 60 / F ADM Date: 07/17/20 Loc: ER Room/Bed: Attending Dr: Ordering Provider/Ordering MD: Niyah Keenan DO Date of Service: 07/17/20 Procedure(s): CT head wo con* [id number] Accession Number(s): [id number] Report Number: [id number]/CT head wo con* [id number] THIS REPORT CONTAINS FINDINGS THAT MAY BE CRITICAL TO PATIENT CARE. The findings were verbally communicated via telephone conference with Niyah Keenan at 8:05 PM CDT on 07/17/2020. The findings were acknowledged and understood. Radiation Dose CTDIVOL = (mGy): DLP = 881.59 (mGy-cm) Addendum Dictated By: Moiz eTrrell Addendum Signed By: Moiz Terrell Signed Date/Time: 07/17/20 200 7 Addendum Cosigned By: PROCEDURE INFORMATION: Exam: CT Head Without Contrast Exam date and time: 07/17/2020 6:43 PM Age: 60 years old Clinical indication: Other: Parathesis; Additional info: Paresthesias TECHNIQUE: Imaging protocol: Computed tomography of the head without contrast. Radiation optimization: All CT scans at this facility use at least one of these dose optimization techniques: automated exposure control; mA and/or kV adjustment per patient size (includes targeted exams where dose is matched to clinical indication); or iterative reconstruction. COMPARISON: CT head wo con* [id number] 11/01/2019 3:26 PM RADIATION DOSE METRICS: Total DLP (mGy-cm): 881.59 FINDINGS: Brain: Potential subacute lacunar infarction right frontal lobe operculum. No visible intracranial hemorrhagic event. No mass effect. No midline shift. No visible hyperdense MCA sign. No visible insular ribbon sign. Cerebral ventricles: No ventriculomegaly. Bones/joints: Unremarkable. No acute fracture. Paranasal sinuses: Visualized sinuses are unremarkable. No fluid levels. Mastoid air cells: Visualized mastoid air cells are well aerated. Soft tissues: Unremarkable. CT/CT head wo con* [id number] IMPRESSION: 1. Potential subacute lacunar infarction right frontal lobe operculum. 2. No visible intracranial hemorrhagic event. Radiation Dose CTDIVOL = (mGy): DLP = 881.59 (mGy-cm) Dictated By: Moiz Terrell Signed By: Moiz Terrell Signed Date/Time: 07/17/201952 DD/ 51 EKG Data^: EKG 1: Attestation: I personally reviewed and interpreted this EKG as follows: EKG interpretation date: 07/17/20 EKG interpretation time: 19:07 Interpretation: Normal sinus rhythm at 81 beats a minute, normal axis, no blocks, normal intervals, no acute ST-T wave changes. Discharge Plan Discharge Patient Disposition: Placed in Observation Clinical Impression: CVA (cerebral vascular accident) Condition: Stable Prescriptions: No Action cyclobenzaprine 10 mg Tablet 10 mg PO BID PRN (Reason: Muscle Spasm) RF: 0 amitriptyline 50 mg Tablet 150 mg PO BEDTIME 30 Days Qty: 30 RF: 0 Nexium 40 mg Capsule,Delayed Release(Dr/Ec) 40 mg PO DAILY 30 Days Qty: 30 RF: 0 Levemir FlexTouch U-100 Insuln 100 unit/mL (3 mL) insulin pen 30 unit SUBCUT Q12H 30 Days Qty: 18 RF: 1 Novolog Flexpen U-100 Insulin 100 unit/mL (3 mL) insulin pen See Rx Instructions .ROUTE .COMPLEX Qty: 15 RF: 1 Referrals: Chet,PACHECO Gipson [Primary Care Provider] - Coding Level of Care Code 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
[2020-07-17] MEDS: sodium chloride 0.9% 1,000 ML 999 ML IV ×2 (19:10→21:36)
[2020-07-17 19:12] VITALS: PULSE 83; RESP 16; O2SAT 95
[2020-07-17 19:14] LABS: Basophils # 0.1 10^3/uL (0.0-0.1); Basophils % 0.7 %; Eosinophils # 0.5 10^3/uL (0.0-0.8); Eosinophils % 3.9 %; Hematocrit 46.2 % (37.0-47.0); Hemoglobin 14.7 g/dL (11.5-15.3); Lymphocytes # 3.6 10^3/uL (0.8-4.8); Lymphocytes % 29.2 %; Mean Corpuscular HGB Conc 31.8 g/dL (30.0-36.0); Mean Corpuscular Hemoglobin 29.6 pg (28.0-34.0); Mean Corpuscular Volume 93.1 fL (81-99); Mean Platelet Volume 10.5 fL (7.4-10.4); Monocytes # 0.8 10^3/uL (0.2-0.9); Monocytes % 6.7 %; Neutrophils # 7.07 10^3/uL (1.8-7.7); Nucleated Red Blood Cells % 0 %; Platelet Count 325 10^3/cmm (130-400); Red Blood Count 4.96 10^6/uL (4.1-5.3); Red Cell Distribution Width 14.2 % (12.1-15.1); White Blood Count 12.2 10^3/uL (4.0-10.0)
[2020-07-17 19:36] LABS: Alanine Aminotransferase 24 U/L (0-33); Albumin Level 4.8 g/dL (3.5-5.2); Alkaline Phosphatase 102 IU/L (35-105); Anion Gap 18.9 (5-19); Aspartate Amino Transferase 25 U/L (0-32); Blood Urea Nitrogen 19 mg/dL (6-20); Calcium 10.2 mg/dL (8.5-10.5); Carbon Dioxide 25 mmol/L (22-29); Chloride 103 mmol/L (98-107); Globulin 2.9 g/dL (1.3-4.6); Glomerular Filtration Rate 64.3 mL/min (90-130); Glucose 103 mg/dL (65-115); Osmolality Calculated 299 mOsm/kg (285-295); Potassium 3.9 mmol/L (3.5-5.1); Sodium 143 mmol/L (136-145); Total Bilirubin 0.2 mg/dL (0.15-1.2); Total Protein 7.7 g/dL (6.6-8.7)
[2020-07-17 19:40] LABS: Troponin(5th) Baseline 14 ng/L (0-10)
[2020-07-17 19:48] LABS: SARS Covid-2 Antigen Negative (Negative)
[2020-07-17 20:04] LABS: Add Urine Microscopic? YES; Bilirubin Urine Neg (Negative); Blood Urine 2+ (Negative); Glucose Urine UA Norm (Normal); Ketones Urine Negative (Negative); Leukocyte Esterase Urine Negative (Negative); Nitrate Urine Positive (Negative); Protein Urine Neg (Negative); Specific Gravity, Urine 1.015 (1.005-1.030); Urine Appearance Hazy (CLEAR); Urine Color Yellow (Yellow); Urobilinogen Urine Neg (Negative); pH Urine 6 (5-7)
[2020-07-17 20:10] LABS: RBC Urine 0-4 /hpf (0-2); Squamous Epithelial Cell Urine 0-4 /hpf (0-5); WBC Urine 0-4 /hpf (0-5)
[2020-07-17 20:11] LABS: Add Urine Culture? Yes; Bacteria Urine 4+ /hpf
--- NOTE | 2020-07-17 20:36 | ECG_ITS ---
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 Measurements Intervals [place] Rate: 78 P: 36 DC: 205 QRS: 60 QRSD: 96 T: 62 QT: 410 QTc: 469 Interpretive Statements SINUS RHYTHM LOW QRS VOLTAGE IN PRECORDIAL LEADS [QRS DEFLECTION < 1.0 mV IN CHEST LEADS] No previous ECG available for comparison Electronically Signed On 07-18-2020 18:18:46 CDT by Yun Gore M.D. [id number]
--- NOTE | 2020-07-17 20:48 | PM.HP ---
Providers/Chief Complaint Primary Care Provider: PACHECO Kraus Chief Complaint: trouble walking/talking/knees buckling/drop things History of Present Illness Sandra Jarquin is a 60 year old female who carries history of suboptimally controlled type 2 diabetes, hypertension, was treated for DKA in November, came in today for chief complaint of recurrent falls. Patient is stating that she has been having difficulty walking since her episode of hypoglycemia/DKA in November. Recently in the last 2 weeks her symptoms have worsened she has fallen multiple times and today she fell in her bathroom which she is attributing to her knee buckling. is at the bedside who is endorsing that he did not notice any facial asymmetry, facial droop, loss of consciousness, seizure-like activities. Patient is endorsing that her blood sugar stays between 110s to 180s with the current insulin regimen which was prescribed after DKA management. He denies previous history of A. fib, cancer, hypercoagulable state, stroke, TIA, AR, CHF. She has been able to swallow food without any difficulty. She has not noticed weakness of her extremities but endorsing numbness and tingling of left arm and sometimes in her legs. Diagnostics in the ER revealed subacute infarct, hemodynamically she is stable, mild leukocytosis, no signs of UTI, in the ER no A. fib was identified I have requested CTA head and neck, TSH, A1c Review of Systems Const: Reports: fatigue; Denies: fever(s), chills or body aches Eyes: Reports: change in vision and blurry vision ENMT: Denies: throat pain Card: Denies: chest pain Resp: Denies: dyspnea GI: Denies: abdominal pain : Denies: flank pain Musc: Denies: neck pain Skin/Breast: Denies: rash Neuro: Reports: weakness in extremities, difficulty walking and frequent falls Psych: Denies: anxiety Endo: Denies: polyuria Gt/Lymph: Denies: easy bruising All/Imm: Denies: urticaria Medications/Allergies Home Medications Medication Instructions Recorded Confirmed Last Taken Type cyclobenzaprine 10 mg PO BID PRN 11/01/19 11/01/19 Unknown History Nexium 40 mg PO DAILY 30 Days #30 cap 11/04/19 Unknown Rx amitriptyline 150 mg PO BEDTIME 30 Days #30 tab 11/04/19 Unknown Rx insulin aspart U-100 [Novolog See Rx Instructions .ROUTE 11/04/19 Unknown Rx Flexpen U-100 Insulin] .COMPLEX #15 ml insulin detemir U-100 [Levemir 30 unit SUBCUT Q12H 30 Days #18 ml 11/04/19 Unknown Rx FlexTouch U-100 Insuln] Allergies Allergy/AdvReac Type Severity Reaction Status Date / Time No Known Allergies Allergy Verified 07/17/20 16:57 PFSH Acute PFSH: Medical History COPD (chronic obstructive pulmonary disease) Depression History of cervical cancer Hypertension Morbid obesity Type 2 diabetes mellitus Surgical History History of partial hysterectomy Family History Other Cancer Chronic kidney disease (CKD) Social History (Updated 07/17/20 @ 21:50 by Anusha Valle MD) Smoking and tobacco status: current every day smoker Alcohol intake: never Household members: spouse Housing: House Vitals/I&O/Wt Last Vital Signs Temp 98.5 F 07/17/20 16:48 Pulse 83 07/17/20 19:12 Resp 16 07/17/20 19:12 BP 155/87 07/17/20 16:48 Pulse Ox 95 07/17/20 19:12 Weight last 48 hrs Weight 108.862 kg Physical Exam Narrative: EXAM NARRATIVE: Patient was sitting at the bedside when I entered the room female very pleasant to communicate No active distress S1, S2 no tachycardia heart failure No murmur appreciated, no A. fib signs No neurological deficit, NIH 0, no facial droop or asymmetry, pupils are reactive to light bilaterally EOMI, PERRLA No cerebellar signs She is able to walk without any difficulty, Romberg sign negative Lungs are clear to auscultation without adventitial rhonchi or crackles Appropriate mood and affect Lower extremity no edema or gangrene Distended abdomen, bowel sound present nontender Data : 07/17/20 19:02 07/17/20 19:02 A&P Assessment and plan (1) Stroke: Status: Acute (2) Frequent falls: Status: Acute (3) Tingling of upper extremity: Status: Acute Additional A&P Information Subacute stroke Patient is hypertensive, diabetic, without previous history of TIA, CVA, A. fib or hypercoagulable state Etiology is unknown, will monitor her heart rhythm overnight, will get CTA head and neck Currently NIH 0 PT/OT in the morning, she is able to swallow without any difficulty, I would not require speech evaluation at this point Echo in the morning Check TSH, A1c Type 2 diabetes She has been recently treated for DKA in November, currently her blood sugar is stable on detemir 30 units twice a day along sliding scale I will try Lantus 40 units for now, as Lantus has slow absorption and tend to stay longer in the system as compared to detemir Consistent carb diet, moderate sliding scale No active infectious process of head and neck I am not suspecting Mucormycosis or infectious etiology for her stroke Hypertension: Currently normotensive, monitor blood pressure overnight I would allow permissive hypertension for few days considering subacute stroke DVT prophylaxis Lovenox Consistent carb diet Full code Attestations Medical Necessity Statement*: Anticipating discharge in less than 48 hours currently need work-up for subacute stroke, currently NIH 0, need overnight monitoring to rule out A. fib to be the cause of stroke Time Spent in Patient Care: (>than 50% of time spent in counselling and/or direct pt care on unit). 50mins Coding Level of Care Code Acute Sugar Presser for Isa Joy Diagnoses Stroke I63.9 Frequent falls R29.6 Tingling of upper extremity R20.2
--- NOTE | 2020-07-17 21:09 | CTR_ITS ---
PROCEDURE INFORMATION: Exam: CT Angiography Head With Contrast Exam date and time: 07/17/2020 9:34 PM Age: 60 years old Clinical indication: Speech disturbance and syncope and collapse; Additional info: Stroke TECHNIQUE: Imaging protocol: Computed tomography angiography of the head with intravenous contrast. 3D rendering (Not supervised by radiologist): MIP and/or 3D reconstructed images were created by the technologist. Radiation optimization: All CT scans at this facility use at least one of these dose optimization techniques: automated exposure control; mA and/or kV adjustment per patient size (includes targeted exams where dose is matched to clinical indication); or iterative reconstruction. Contrast material: OMNI 350; Contrast volume: 95 ml; Contrast route: INTRAVENOUS (IV); COMPARISON: CT head wo con* [id number] 07/17/2020 7:23 PM RADIATION DOSE METRICS: Total DLP (mGy-cm): 2569.93 FINDINGS: ANTERIOR CIRCULATION: Right internal carotid artery: Minimal cerebral arteriosclerosis of the carotid artery terminus. Intracranial segment is patent with no significant stenosis. No aneurysm. Right middle cerebral artery: Unremarkable. No occlusion or significant stenosis. No aneurysm. Right anterior cerebral artery: Unremarkable. No occlusion or significant stenosis. No aneurysm. Left internal carotid artery: Minimal cerebral arteriosclerosis of the carotid artery terminus. Intracranial segment is patent with no significant stenosis. No aneurysm. Left middle cerebral artery: Unremarkable. No occlusion or significant stenosis. No aneurysm. Left anterior cerebral artery: Unremarkable. No occlusion or significant stenosis. No aneurysm. POSTERIOR CIRCULATION: Right vertebral artery: Unremarkable. No occlusion or significant stenosis. No aneurysm. Left vertebral artery: Unremarkable. No occlusion or significant stenosis. No aneurysm. Basilar artery: Unremarkable. No occlusion or significant stenosis. No aneurysm. Right posterior cerebral artery: Unremarkable. No occlusion or significant stenosis. No aneurysm. Left posterior cerebral artery: Unremarkable. No occlusion or significant stenosis. No aneurysm. IMPRESSION: 1. No large vessel stenosis or occlusion. 2. Minimal cerebral arteriosclerosis of the carotid artery terminus bilaterally. PROCEDURE INFORMATION: Exam: CT Angiography Neck With Contrast Exam date and time: 07/17/2020 9:34 PM Age: 60 years old Clinical indication: Speech disturbance and syncope and collapse; Additional info: Stroke TECHNIQUE: Imaging protocol: Computed tomography angiography of the neck with intravenous contrast. 3D rendering (Not supervised by radiologist): MIP and/or 3D reconstructed images were created by the technologist. Radiation optimization: All CT scans at this facility use at least one of these dose optimization techniques: automated exposure control; mA and/or kV adjustment per patient size (includes targeted exams where dose is matched to clinical indication); or iterative reconstruction. Contrast material: OMNI 350; Contrast volume: 95 ml; Contrast route: INTRAVENOUS (IV); COMPARISON: CT head wo con* [id number] 07/17/2020 7:23 PM RADIATION DOSE METRICS: Total DLP (mGy-cm): 2569.93 FINDINGS: Right common carotid artery: No stenosis. No dissection or occlusion. Right internal carotid artery: No stenosis of the extracranial segment. No dissection or occlusion. Right external carotid artery: No occlusion or stenosis of the origin. Right vertebral artery: No stenosis. No dissection or occlusion. Left common carotid artery: No stenosis. No dissection or occlusion. Left internal carotid artery: No stenosis of the extracranial segment. No dissection or occlusion. Left external carotid artery: No occlusion or stenosis of the origin. Left vertebral artery: No stenosis. No dissection or occlusion. Bones/joints: Advanced degenerative disease and degenerative disc disease of the cervical spine with spondylosis deformans. Soft tissues: Unremarkable. No significant soft tissue swelling. Lungs: Patches of ground-glass interstitial lung disease which could reflect active interstitial pneumonitis. No visible consolidated alveolar airspace disease. CT/CT angio headneck* [id number] IMPRESSION: 1. No visible hemodynamically significant stenosis or occlusion. 2. Mild arteriosclerosis. 3. Patches of ground-glass interstitial lung disease which could reflect active interstitial pneumonitis. REFERENCES: NASCET CRITERIA. The degree of internal carotid artery stenosis is based on NASCET criteria. Normal is no stenosis. Mild is less than 50% stenosis. Moderate is 50-69% stenosis. Severe is 70% to 99% stenosis. Total occlusion is no detectable patent lumen. Radiation Dose CTDIVOL = (mGy): DLP = 2569.93~2569.93 (mGy-cm)
[2020-07-17 21:37] VITALS: BP 130/73; PULSE 80; RESP 18; O2SAT 96
[2020-07-17] MEDS: iohexol 350 mg/mL 100 mL Btl IV (21:48)
--- NOTE | 2020-07-17 22:43 | PC.NURSE ---
Patient states she wants to go home. Called Dr. Valle and notified him of patient request. Leonard is okay with AMA. Patient explained the AMA process and gave verbal acknowledgement of understanding. Patient alert and oriented x4. Patient signed AMA form.
[2020-07-17 22:45] VITALS: BP 139/66; PULSE 77; RESP 18; O2SAT 97
--- NOTE | 2020-07-17 22:47 | PM.EVENT ---
Event Note Event Note: Patient is leaving AGAINST MEDICAL ADVICE from the ER, she never admitted to the floor, she has been told by Dr. Perez in the ER and by myself about the importance of work-up for stroke but she is adamant about going home and she is understands all the complications including massive stroke and , at the bedside
--- NOTE | 2020-07-18 00:19 | PC.SOCIAL ---
Patient seen in ED for initial assessment. However she left AMA and was not admitted. She lives alone but her significant other Jaycob helps her out as needed. She only has a nebulizer at home and no services. She has not completed an advanced directive. She currently see's Nori Rosenberg and uses [facility] in [place], [place]. She mentioned being interested in a Dexacom unit to check her blood sugar. Informed her staff would look into it and update her tomorrow but since she left AMA this will be unable to be done.
== END 2020-07-17 22:46 | disposition still patient (30) ==
PROVIDERS: Nurse Practitioner Family; Emergency Provider Emergency Medicine; PCP Nurse Practitioner Family
DX: I63.9 Cerebral infarction, unspecified (principal); Z79.4 Long term (current) use of insulin; J44.9 Chronic obstructive pulmonary disease, unspecified; Z85.41 Personal history of malignant neoplasm of cervix uteri; I10 Essential (primary) hypertension; E11.9 Type 2 diabetes mellitus without complications; F17.210 Nicotine dependence, cigarettes, uncomplicated
CPT/HCPCS: 12345; 36415; 36573; 70450; 70496; 70498; 71045; 80053; 81001; 84484; 85025; 87077; 87086; 87186; 87426; 93005; 96360; 96361; 99283; 99284; J7030; Q9967

== ENCOUNTER 2021-06-16 10:10 | Outpatient (CLI) | payer MEDICARE, MEDICAID, SELFPAY ==
--- NOTE | 2021-06-16 10:17 | US_ITS ---
WS: [id number] TRANSABDOMINAL PELVIC AND TRANSVAGINAL PELVIC ULTRASOUND HISTORY: MENOPAUSE/incontinence COMPARISON: None available. Uterus: Surgically absent. No midline mass. Right ovary: 2.4 cm x 1.3 cm x 2.7 cm. Small atrophic ovary. No solid or cystic mass. Normal vascular ity. Left ovary: 2.7 cm x 1.6 cm x 2.5 cm. There is a solid-appearing mass in the LEFT adnexa which is ins eparable from the ovary. There is no increased vascularity. This separate nodule measures 2.3 x 2.1 c m. No increased vascularity. US/US pelvic with transvaginal IMPRESSION: 1. Status post hysterectomy. 2. Solid nodule inseparable from the LEFT ovary measures 2.3 x 2.1 cm. There i s no increased vascularity. Recommend follow-up pelvic CT with IV and oral cont rast for further evaluation.
== END 2021-06-16 10:11 | disposition home or self-care (01) ==
LOC: US 10:13
PROVIDERS: PCP Nurse Practitioner Family; Visit Provider Nurse Practitioner Family
DX: N95.9 Unspecified menopausal and perimenopausal disorder (principal); R39.81 Functional urinary incontinence; Z90.710 Acquired absence of both cervix and uterus
CPT/HCPCS: 76830; 76856

== ENCOUNTER → 2021-06-26 08:58 | Outpatient (BNVA) | payer MEDICARE, MEDICAID, SELFPAY | PROVIDERS: PCP Nurse Practitioner Family; Referring Provider Nurse Practitioner Family; Visit Provider Obstetrics & Gynecology | DX: R09.89 Other specified symptoms and signs involving the circulatory and respiratory systems (principal); R05 Cough; N83.8 Other noninflammatory disorders of ovary, fallopian tube and broad ligament; E11.9 Type 2 diabetes mellitus without complications | CPT/HCPCS: 81500; 83036; 84443 ==

== ENCOUNTER → 2021-07-06 11:30 | Outpatient (BNVA) | payer MEDICARE, MEDICAID, SELFPAY | PROVIDERS: PCP Nurse Practitioner Family; Visit Provider Family Medicine | DX: E11.9 Type 2 diabetes mellitus without complications (principal); I10 Essential (primary) hypertension; J44.9 Chronic obstructive pulmonary disease, unspecified; F17.210 Nicotine dependence, cigarettes, uncomplicated | CPT/HCPCS: 80053; 80061; 83036; 84443; 85025 ==

== ENCOUNTER 2021-07-07 12:57 | Outpatient (CLI) | payer MEDICARE, MEDICAID, SELFPAY ==
--- NOTE | 2021-07-07 13:00 | XR_ITS ---
WS: [id number] Chest 2 views, 07/07/2021 Clinical Data: R09.89 - Other specified symptoms and signs involving the... Comparison: Portable chest, 07/17/2020. Findings: No nodules, masses or effusions are seen. The heart is normal. The pulmonary vascularity is not increased. No pneumonia or pneumothorax is seen. There is minimal osteoarthritis of the thoracic vertebral bodies. XR/XR chest 2V* [id number] Impression: Negative chest.
== END 2021-07-07 12:58 | disposition home or self-care (01) ==
PROVIDERS: Visit Provider Obstetrics & Gynecology
DX: R09.89 Other specified symptoms and signs involving the circulatory and respiratory systems (principal); R05.9 Cough, unspecified
CPT/HCPCS: 71046

== ENCOUNTER 2021-11-13 16:31 | Emergency (ER) | payer MEDICARE, MEDICAID, SELFPAY ==
[2021-11-13 16:44] VITALS: BP 139/69; PULSE 94; RESP 18; TEMP 37.3; O2SAT 95; BMI 36.5
--- NOTE | 2021-11-13 17:04 | W.ED.EXTPRO ---
HPI - Extremity Problem General: Chief complaint: Extremity Injury, Lower Stated complaint: Knees in alot of pain cant walk Time Seen by Provider: 11/13/21 16:59 History of Present Illness: 61-year-old female comes in today with bilateral knee pain. Patient reports that she is unable to perform her daily activities due to her pain and discomfort. Patient has chronic knee pain. Patient has osteoarthritis in bilateral knees but cannot find a surgeon to do knee replacement due to her history of smoking and diabetes. Complaint: extremity pain Onset (ago): year(s) Location: lower extremity Quality: aching and sharp Relieving factors: rest Exacerbating factors: weight bearing Associated symptoms: Reports no associated symptoms Review of Systems General: Reports: 10 or more systems reviewed and unremarkable except in HPI and below Musc: Reports: joint pain (Bilateral knee joints) PFSH ED PFSH: Medical History COPD (chronic obstructive pulmonary disease) COPD (chronic obstructive pulmonary disease) Depression History of cervical cancer Hypertension Morbid obesity Type 2 diabetes mellitus Surgical History History of knee surgery scope and shot in the right knee History of partial hysterectomy Family History Sister Diabetes Cancer Thyroid cancer Father Cancer mouth cancer Mother Cancer Pancreatic cancer Denies family history of Hyperlipidemia Chronic kidney disease (CKD) Hypertension Thyroid disease Stroke Social History Smoking and tobacco status: current every day smoker Alcohol intake: never Household members: spouse Housing: House Physical Exam Const: COMMON NORMALS: alert Resp: COMMON NORMALS: normal respiratory effort Cardio: COMMON NORMALS: regular rate and regular rhythm RATE: regular rate RHYTHM: regular rhythm Extremity: RIGHT LOWER EXTREMITY: Yes knee joint (Joint line tenderness, minimal swelling. No redness.) Right knee: Yes inspection, Yes palpation and Yes ROM LEFT LOWER EXTREMITY: Yes knee joint (Joint line tenderness, minimal to no swelling. No redness.) Left knee: Yes inspection, Yes palpation and Yes ROM Neuro: SENSORIUM/ORIENTATION: Yes alert GAIT: Yes Unable to assess gait Psych: COMMON NORMALS: cooperative (Depressed), denies homicidal ideation and denies suicidal ideation Skin: COMMON NORMALS: no rashes or lesions noted GENERAL SKIN EXAM: no rashes or lesions noted Course Vital Signs: Vital signs: Vital Signs Temperature 99.1 F 11/13/21 16:44 Pulse Rate 94 11/13/21 16:44 Respiratory Rate 18 11/13/21 16:44 Blood Pressure 139/69 11/13/21 16:44 Pulse Oximetry 95 11/13/21 16:44 MDM - Extremity (Nontraumatic) Medical Decision Making 61-year-old female comes in today for complaints of bilateral knee pain. Patient reports inability to stand and walk due to the pain in her knees. Patient has osteoarthritis to both knees. Patient was referred to the ER by primary care due to her persistent pain. Patient reports that she needs a wheelchair so she can get around in the house. On exam patient has no redness or inflammation noted in the knees. Patient does have some joint line tenderness. Distal pulses and sensations are normal. No popliteal angle pain is noted on palpation. No signs of DVT. Differential diagnosis includes peripheral neuropathy due to diabetes mellitus, osteoarthritis of the knee, malingering. X-rays notes some moderate degenerative disease in the bilateral knees, no obvious fracture was noted. Patient was given 1 dose of hydrocodone and a dose of morphine 4 mg for her pain control. I ordered a wheelchair for the patient so she can participate in her ADLs at home. I did encourage patient to stay mobile as much as possible. Case management was requested to her refer to orthopedics for other treatment and management, and pain management. Patient reported understanding agreed to plan. Discharge Plan Discharge Patient Disposition: Home Clinical Impression: Impaired mobility and ADLs Osteoarthritis, knee Qualifiers: Osteoarthritis type: primary Laterality: bilateral Qualified Code(s): M17.0 - Bilateral primary osteoarthritis of knee Chronic knee pain Qualifiers: Laterality: bilateral Qualified Code(s): M25.561 - Pain in right knee Condition: Stable Prescriptions: New hydrocodone-acetaminophen 5-325 mg tablet 1 tab PO Q6H PRN (Reason: pain) Qty: 14 0RF No Action nicotine 21 mg/24 hr patch 24 hour 1 patch transdermal DAILY Qty: 28 6RF furosemide 20 mg tablet 20 mg PO DAILY PRN0RF aspirin [Adult Aspirin Regimen] 81 mg tablet,delayed release (DR/EC) 81 mg PO DAILY 0RF albuterol sulfate [Ventolin HFA] 90 mcg/actuation HFA aerosol inhaler 1 inh inhalation QID PRN (Reason: shortness of breath or wheezing) Qty: 6.7 3RF Advair HFA 115-21 mcg/actuation HFA aerosol inhaler 2 puff inhalation Q12H Qty: 12 2RF albuterol sulfate 2.5 mg /3 mL (0.083 %) solution for nebulization 2.5 mg inhalation QID PRN (Reason: shortness of breath or wheezing) Qty: 180 3RF ibuprofen 800 mg tablet 800 mg PO TID PRN (Reason: pain) Qty: 180 1RF gabapentin 600 mg tablet 600 mg PO .qhs Qty: 90 3RF Novolog Flexpen U-100 Insulin 100 unit/mL (3 mL) insulin pen See Rx Instructions .ROUTE .COMPLEX Qty: 15 3RF Rx Instructions: Please run through 340b Take 3 times daily with meal Fingerstick Blood Glucose Insulin Units 141-180 mg/dl 6 units/SQ 181-220 mg/dl 8 units/SQ 221-260 mg/dl 10 units/SQ 261-300 mg/dl 12 units/SQ 301-350 mg/dl 14 units/SQ 351-400 mg/dl 16 units/SQ greater than 400 mg/dl 18 units/SQ Levemir FlexTouch U-100 Insuln 100 unit/mL (3 mL) insulin pen 30 unit SUBCUT Q12H 30 Days Qty: 18 1RF Rx Instructions: please run through 340b baclofen 20 mg tablet 20 mg PO .qhs Qty: 30 2RF rosuvastatin [Crestor] 5 mg tablet 5 mg PO DAILY Qty: 30 1RF lisinopril 10 mg tablet 10 mg PO DAILY Qty: 30 2RF Jardiance 25 mg tablet 25 mg PO QAM Qty: 30 2RF nystatin 100,000 unit/gram cream 1 applic topical BID Qty: 30 3RF (DME) nebulizer mask and tubing supplies See Rx Instructions .Route .MEDSUPPLY Qty: 1 0RF Rx Instructions: As directed Nexium 40 mg capsule,delayed release(DR/EC) 40 mg PO BID Qty: 180 1RF amitriptyline 50 mg tablet See Rx Instructions .ROUTE .COMPLEX Qty: 270 4RF Dose Instruction: take THREE tablets BY MOUTH AT BEDTIME Rx Instructions: take THREE tablets BY MOUTH AT BEDTIME Discharge Orders: Discharge ED (Routine); Ordered 11/13/21 Ordered By: Yunior Gillette Other Ambulatory Orders: DME: Miscellaneous (Order) Location: None Selected Ordered By: Yunior Gillette Discharge Diet: Usual diet Discharge Activity: Increase activity as tolerated and Wheelchair as instructed Patient Instructions: Musculoskeletal Pain (ED), Opioid Safety Activity Restrictions/Additional Instructions: Activity level as tolerated. Continue with routine medications as prescribed. Use acetaminophen and ibuprofen to control pain. Use hydrocodone for breakthrough pain. I have placed in a referral to orthopedics for another evaluation and consideration of other treatment options. I have also placed a referral to help with chronic pain management. Case management will contact you regarding these follow-up appointments. Follow-up with your primary care otherwise. Return to the ER for new concerns. Coding Level of Care Code ED [employer] for Isa Fwjerri History Expanded Problem Focused Exam Detailed Medical Decision Making Moderate Complexity Time Spent (min) 30
--- NOTE | 2021-11-13 17:18 | XRR_ITS ---
PROCEDURE INFORMATION: Exam: XR Left Knee Exam date and time: 11/13/2021 5:18 PM Age: 61 years old Clinical indication: Condition or disease; Other: Worn down joints; Additional info: Pain TECHNIQUE: Imaging protocol: XR Left knee. Views: 3 views. COMPARISON: No relevant prior studies available. FINDINGS: Bones/joints: Moderate medial compartment joint space narrowing. Mild widening of the lateral compartment joint space. Small tricompartmental osteophytes. No acute fracture. No visible joint effusion. Soft tissues: Visible soft tissues are unremarkable. XR/XR knee LT 3V* [id number] IMPRESSION: Tricompartmental degenerative disease, greatest in the medial compartment.
--- NOTE | 2021-11-13 17:18 | XRR_ITS ---
PROCEDURE INFORMATION: Exam: XR Right Knee Exam date and time: 11/13/2021 5:18 PM Age: 61 years old Clinical indication: Other: Worn down joints, PT didn't confirm arthritis; Additional info: Pain TECHNIQUE: Imaging protocol: XR Right knee. Views: 3 views. COMPARISON: No relevant prior studies available. FINDINGS: Bones/joints: Alignment is normal. Joint spaces are preserved. Medial compartment and patellofemoral osteophytes noted. No acute fracture. No visible joint effusion. Soft tissues: Visible soft tissues are unremarkable. XR/XR knee RT 3V* [id number] IMPRESSION: Mild medial and patellofemoral compartment degenerative disease.
[2021-11-13] MEDS: HYDROcodone-acetaminophen 5-325 mg Tablet 1 TAB PO (17:35)
[2021-11-13 18:39] VITALS: RESP 20
[2021-11-13] MEDS: morphine 4 mg/mL SDV 1 mL IM (18:39)
[2021-11-13 18:46] VITALS: PULSE 93; RESP 20; O2SAT 96
--- NOTE | 2021-11-16 10:41 | DCPLANNER ---
Addendum entered by Mami Guadarrama 12/02/21 15:04: Patient had a follow up appointment scheduled for 12.01.21 with ortho - patient did not attend appointment. Addendum entered by Mami Guadarrama 11/27/21 22:02: Patient has a follow up appointment scheduled for Wednesday, December 01, [address] at 2:[address] Walker. Clinic will call patient with appointment information. Original Note: detail manager had message to schedule a follow up appointment for patient with ortho. detail manager called the ortho clinic, spoke with Umm, gave clinic patients information. detail manager was told that patients information would be printed and reviewed. Clinic will call patient with appointment information.
== END 2021-11-13 18:57 | disposition home or self-care (01) ==
PROVIDERS: Emergency Provider Nurse Practitioner Family
DX: M17.0 Bilateral primary osteoarthritis of knee (principal); G89.29 Other chronic pain; R68.89 Other general symptoms and signs; Z79.82 Long term (current) use of aspirin; Z79.4 Long term (current) use of insulin; J44.9 Chronic obstructive pulmonary disease, unspecified; I10 Essential (primary) hypertension; E11.9 Type 2 diabetes mellitus without complications; Z85.41 Personal history of malignant neoplasm of cervix uteri; F17.210 Nicotine dependence, cigarettes, uncomplicated
CPT/HCPCS: 73562; 96372; 99283; J2270

== ENCOUNTER 2021-11-18 15:59 | Emergency (ER) | payer MEDICARE, MEDICAID, SELFPAY ==
[2021-11-18 16:07] VITALS: BP 177/93; PULSE 94; RESP 16; O2SAT 95; BMI 36.5
--- NOTE | 2021-11-18 16:18 | ED_ITS ---
Documented by User: Carlos Alex DO 11/19/21 11:43 HPI - Extremity Problem General: Chief complaint: Extremity Problem,Nontraumatic Stated complaint: Stroke like symptoms Facial droop Time Seen by Provider: 11/18/21 16:18 Source: patient Mode of arrival: ambulatory History of Present Illness: 61-year-old female comes in complaining of right shoulder pain. She isolates pain over the mid and upper scapula on the right side. She holds her arm cradled. She has no pain in the wrist elbow or sh oulder itself. She demonstrates a lot of range of motion to the shoulder trying to relieve the discomfort. She is not had any shortness of breath with that she says she has various tingling sensations from her right arm to her left arm and left fingers and her right leg. She does have a history of fibromyalgia she was previously going to a pain clinic but she has not been. She was here a few days ago with similar vague leg musculoskeletal complaints. She has no known history of coronary disease but she is diabetic she does have a history of slight COPD and hyperlipidemia as well. MD Complaint: extremity pain Onset (ago): day(s) Pain Consistency: constant Location: right and upper extremity (Shoulder) Quality: aching Radiation: distal Relieving factors: nothing Exacerbating factors: palpation Associated symptoms: Reports chest pain; Deny arthralgias, fever(s), myalgias, rash or short of breath Review of Systems Const: Denies: fever(s) ENMT: Denies: throat pain, ear or mastoid pain, nasal discharge or nasal congestion Card: Reports: chest pain Resp: Denies: dyspnea, productive cough or non-productive cough GI: Denies: abdominal pain, nausea, vomiting, hematemesis, coffee ground emesis, diarrhea, constipation, bloating, hematochezia or melena : Denies: flank pain, difficulty voiding, dysuria, urinary frequency or urinary urgency Skin/Breast: Denies: rash PFSH ED PFSH: Medical History COPD (chronic obstructive pulmonary disease) COPD (chronic obstructive pulmonary disease) Depression History of cervical cancer Hypertension Morbid obesity Type 2 diabetes mellitus Surgical History History of knee surgery scope and shot in the right knee History of partial hysterectomy Family History Sister Diabetes Cancer Thyroid cancer Father Cancer mouth cancer Mother Cancer Pancreatic cancer Denies family history of Hyperlipidemia Chronic kidney disease (CKD) Hypertension Thyroid disease Stroke Social History Smoking and tobacco status: current every day smoker Alcohol intake: never Household members: spouse Housing: House Physical Exam Const: COMMON NORMALS: no acute distress GENERAL APPEARANCE: cooperative and comfortable ORIENTATION/CONSCIOUSNESS: Yes awake, Yes oriented to person, Yes oriented to place and Yes oriented to time HENMT: COMMON NORMALS: normocephalic, atraumatic and hearing grossly normal bilaterally HEAD & SCALP: normocephalic and atraumatic Neck/C-Spine: COMMON NORMALS: no JVD Resp: COMMON NORMALS: normal respiratory effort, No retractions, No use of accessory muscles and clear to auscultation bilaterally AUSCULTATION: clear to auscultation bilaterally Cardio: COMMON NORMALS: no JVD, regular rate, regular rhythm and No murmurs present (Cardio) RATE: regular rate RHYTHM: regular rhythm GI: COMMON NORMALS: Soft to palpation and No hepatosplenomegaly present AUSCULTATION: Yes normoactive bowel sounds PALPATION: Yes Soft to palpation, No Tenderness to palpation present (GI), No Guarding due to palpation present (GI) and Yes No hepatosplenomegaly present Extremity: COMMON NORMALS: normal to inspection, capillary refill normal, no clubbing, cyanosis or edema, no calf tenderness and no pedal edema Neuro: SENSORIUM/ORIENTATION: Yes oriented to person, Yes oriented to place and Yes oriented to time Skin: COMMON NORMALS: no rashes or lesions noted GENERAL SKIN EXAM: no rashes or lesions noted Course Vital Signs: Vital signs: Vital Signs Pulse Rate 87 11/18/21 19:31 Respiratory Rate 18 11/18/21 20:52 Blood Pressure 130/91 11/18/21 19:31 Pulse Oximetry 94 11/18/21 20:52 MDM - Extremity (Nontraumatic) Medical Decision Making Care signed out to Dr. mays at change of shift. See final notes for diagnosis and disposition. Patient care handoff received from Dr. Alex pending completion of ED evaluation including cardiac evaluation. The patient expressed frustration regarding her level of pain and I went and discussed results with the patient up to this point including need for repeat troponin to ensure that there was not a AR cardiac cause of the patient's symptoms. I explained to the patient that ED evaluation at this point has not revealed a obvious cause of her pain and that pain was likely multifactorial. She did report that she had stopped taking her gabapentin and in discussion with her it is unclear if she was taking this properly or not. Additionally I explained that the emergency department does not manage chronic pain and the importance of follow-up. Given her level of pain I did order a one-time dose of oxycodone. Subsequently the patient left the emergency department. She declined to remain in the emergency department long enough for completion of results of 2-hour troponin and declined to stay in the emergency department for further discussion. She declined to sign AGAINST MEDICAL ADVICE form. She ambulated from the emergency department with a steady gait. Labs notable for mild hemoconcentration with minimal leukocytosis without specific identified source of infection on ED evaluation. Metabolic panel without acute derangement requiring intervention. Delta troponin is negative with what is reported to be greater than 6 hours of symptoms. Imaging reviewed. There is no acute head CT or chest x-ray finding. 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 In discussion with Dr. Alex and based on ED evaluation that I performed I do not feel that additional advanced imaging is warranted at this time even if the patient had remained in the emergency department. Germain Kern MD Emergency Medicine Lab Data : 11/18/21 16:50 11/18/21 18:[address] 11/18/21 16:29 IMPRESSION: No acute intracranial abnormality. Chest X-Ray 11/18/21 17:41 IMPRESSION: No acute findings. Shoulder X-Ray 11/18/21 17:41 IMPRESSION: No acute findings. Mild osteoarthritis of the acromioclavicular joint. Laboratory Results WBC 10.6 10^3/uL (4.0-10.0) H 11/18/21 16:50 RBC 5.52 10^6/uL (4.1-5.3) H 11/18/21 16:50 Hgb 15.8 g/dL (11.5-15.3) H 11/18/21 16:50 Hct 50.0 % (37.0-47.0) H 11/18/21 16:50 MCV 90.6 fl (81-99) 11/18/21 16:50 MCH 28.6 pg (28.0-34.0) 11/18/21 16:50 MCHC 31.6 g/dL (30.0-36.0) 11/18/21 16:50 RDW 15.4 % (12.1-15.1) H 11/18/21 16:50 Plt Count 242 10^3/cmm (130-400) 11/18/21 16:50 MPV 11.0 fL (7.4-10.4) H 11/18/21 16:50 Neut % (Auto) 56.7 % 11/18/21 16:50 Lymph % (Auto) 31.4 % 11/18/21 16:50 [place] % (Auto) 7.1 % 11/18/21 16:50 Eos % (Auto) 2.8 % 11/18/21 16:50 Baso % (Auto) 0.8 % 11/18/21 16:50 Neut # (Auto) 6.00 10^3/uL (1.8-7.7) 11/18/21 16:50 Lymph # (Auto) 3.3 10^3/uL (0.8-4.8) 11/18/21 16:50 [place] # (Auto) 0.8 10^3/uL (0.2-0.9) 11/18/21 16:50 Eos # (Auto) 0.3 10^3/uL (0.0-0.8) 11/18/21 16:50 Baso # (Auto) 0.1 10^3/uL (0.0-0.1) 11/18/21 16:50 Nucleated RBC % (auto) 0 % 11/18/21 16:50 Nucleated RBCs # 0.0 /100WBC 11/18/21 16:50 Sodium 138 mmol/L (136-145) 11/18/21 18:00 Potassium 4.3 mmol/L (3.5-5.1) 11/18/21 18:00 Chloride 103 mmol/L (98-107) 11/18/21 18:00 Carbon Dioxide 22 mmol/L (22-29) 11/18/21 18:00 Anion Gap 17.3 (5-19) 11/18/21 18:00 BUN 19 mg/dL (6-20) 11/18/21 18:00 Creatinine 0.8 mg/dL (0.5-0.9) 11/18/21 18:00 GFR Calculation 73.4 mL/min (90-130) L 11/18/21 18:00 Glucose 256 mg/dL (65-115) H 11/18/21 18:00 Calculated Osmolality 297 mOsm/kg (285-295) H 11/18/21 18:00 Calcium 9.4 mg/dL (8.5-10.5) 11/18/21 18:00 Total Bilirubin 0.2 mg/dL (0.15-1.2) 11/18/21 18:00 AST 19 U/L (0-32) 11/18/21 18:00 ALT 21 U/L (0-33) 11/18/21 18:00 Alkaline Phosphatase 97 IU/L (35-105) 11/18/21 18:00 Troponin T Baseline 17 ng/L (0-10) H 11/18/21 18:00 Troponin T 120 Minute 16.83 ng/L (0-10) H 11/18/21 20:16 Delta Troponin T -0.17 ABS# (0-10) L 11/18/21 20:16 Total Protein 7.6 g/dL (6.6-8.7) 11/18/21 18:00 Albumin 4.1 g/dL (3.5-5.2) 11/18/21 18:00 Globulin 3.5 g/dL (1.3-4.6) 11/18/21 18:00 Discharge Plan Discharge Patient Disposition: Left Against Medical Advice Clinical Impression: Arm pain, Chest pain, Chronic pain Condition: Stable Prescriptions: No Action nicotine 21 mg/24 hr patch 24 hour 1 patch transdermal DAILY Qty: 28 6RF furosemide 20 mg tablet 20 mg PO DAILY PRN0RF aspirin [Adult Aspirin Regimen] 81 mg tablet,delayed release (DR/EC) 81 mg PO DAILY 0RF albuterol sulfate [Ventolin HFA] 90 mcg/actuation HFA aerosol inhaler 1 inh inhalation QID PRN (Reason: shortness of breath or wheezing) Qty: 6.7 3RF Advair HFA 115-21 mcg/actuation HFA aerosol inhaler 2 puff inhalation Q12H Qty: 12 2RF albuterol sulfate 2.5 mg /3 mL (0.083 %) solution for nebulization 2.5 mg inhalation QID PRN (Reason: shortness of breath or wheezing) Qty: 180 3RF ibuprofen 800 mg tablet 800 mg PO TID PRN (Reason: pain) Qty: 180 1RF gabapentin 600 mg tablet 600 mg PO .qhs Qty: 90 3RF Novolog Flexpen U-100 Insulin 100 unit/mL (3 mL) insulin pen See Rx Instructions .ROUTE .COMPLEX Qty: 15 3RF Rx Instructions: Please run through 340b Take 3 times daily with meal Fingerstick Blood Glucose Insulin Units 141-180 mg/dl 6 units/SQ 181-220 mg/dl 8 units/SQ 221-260 mg/dl 10 units/SQ 261-300 mg/dl 12 units/SQ 301-350 mg/dl 14 units/SQ 351-400 mg/dl 16 units/SQ greater than 400 mg/dl 18 units/SQ Levemir FlexTouch U-100 Insuln 100 unit/mL (3 mL) insulin pen 30 unit SUBCUT Q12H 30 Days Qty: 18 1RF Rx Instructions: please run through 340b baclofen 20 mg tablet 20 mg PO .qhs Qty: 30 2RF rosuvastatin [Crestor] 5 mg tablet 5 mg PO DAILY Qty: 30 1RF lisinopril 10 mg tablet 10 mg PO DAILY Qty: 30 2RF Jardiance 25 mg tablet 25 mg PO QAM Qty: 30 2RF nystatin 100,000 unit/gram cream 1 applic topical BID Qty: 30 3RF (DME) nebulizer mask and tubing supplies See Rx Instructions .Route .MEDSUPPLY Qty: 1 0RF Rx Instructions: As directed Nexium 40 mg capsule,delayed release(DR/EC) 40 mg PO BID Qty: 180 1RF amitriptyline 50 mg tablet See Rx Instructions .ROUTE .COMPLEX Qty: 270 4RF Dose Instruction: take THREE tablets BY MOUTH AT BEDTIME Rx Instructions: take THREE tablets BY MOUTH AT BEDTIME hydrocodone-acetaminophen 5-325 mg tablet 1 tab PO Q6H PRN (Reason: pain) Qty: 14 0RF Sign Out Sign Out Data: Patient Sign Out occurred on 11/18/21 at 18:10. Patient's care was discussed, and care was transferred from to Germain Kern MD. Post-Handoff Eval: See MDM. Coding Level of Care Code ED Wafer Fab Operator for Chg Fwd Exam Comprehensive NIH stroke score NIHSS Level Of Consciousness - 1a: 0 Level Of Consciousness Questions - 1b: Both Correct Level Of Consciousness Commands - 1c: Both Correct Best Gaze - 2: Normal Visual Fishman - 3: No Visual Loss Facial Palsy - 4: Normal Motor Arm Right - 5: No Drift Motor Arm Left - 5: No Drift Motor Leg Right - 6: No Drift Motor Leg Left - 6: No Drift Limb Ataxia - 7: Absent Sensory - 8: Normal Best Language - 9: No Aphasia Dysarthia - 10: Normal Extinction And Inattention - 11: 0 Score Total Score: 0 Documented by User: Germain Kern MD 11/19/21 01:32 HPI - Extremity Problem General: Chief complaint: Extremity Problem,Nontraumatic Stated complaint: Stroke like symptoms Facial droop Time Seen by Provider: 11/18/21 16:18 [facility] ED PFSH: Medical History COPD (chronic obstructive pulmonary disease) COPD (chronic obstructive pulmonary disease) Depression History of cervical cancer Hypertension Morbid obesity Type 2 diabetes mellitus Surgical History History of knee surgery scope and shot in the right knee History of partial hysterectomy Family History Sister Diabetes Cancer Thyroid cancer Father Cancer mouth cancer Mother Cancer Pancreatic cancer Denies family history of Hyperlipidemia Chronic kidney disease (CKD) Hypertension Thyroid disease Stroke Social History Smoking and tobacco status: current every day smoker Alcohol intake: never Household members: spouse Housing: House Course Vital Signs: Vital signs: Vital Signs Pulse Rate 87 11/18/21 19:31 Respiratory Rate 18 11/18/21 20:52 Blood Pressure 130/91 11/18/21 19:31 Pulse Oximetry 94 11/18/21 20:52 MDM - Extremity (Nontraumatic) Medical Decision Making Patient care handoff received from Dr. Alex pending completion of ED evaluation including cardiac evaluation. The patient expressed frustration regarding her level of pain and I went and discussed results with the patient up to this point including need for repeat troponin to ensure that there was not a AR cardiac cause of the patient's symptoms. I explained to the patient that ED evaluation at this point has not revealed a obvious cause of her pain and that pain was likely multifactorial. She did report that she had stopped taking her gabapentin and in discussion with her it is unclear if she was taking this properly or not. Additionally I explained that the emergency department does not manage chronic pain and the importance of follow-up. Given her level of pain I did order a one-time dose of oxycodone. Subsequently the patient left the emergency department. She declined to remain in the emergency department long enough for completion of results of 2-hour troponin and declined to stay in the emergency department for further discussion. She declined to sign AGAINST MEDICAL ADVICE form. She ambulated from the emergency department with a steady gait. Labs notable for mild hemoconcentration with minimal leukocytosis without specific identified source of infection on ED evaluation. Metabolic panel without acute derangement requiring intervention. Delta troponin is negative with what is reported to be greater than 6 hours of symptoms. Imaging reviewed. There is no acute head CT or chest x-ray finding. 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 In discussion with Dr. Alex and based on ED evaluation that I performed I do not feel that additional advanced imaging is warranted at this time even if the patient had remained in the emergency department. Germain Kern MD Emergency Medicine Lab Data : 11/18/21 16:50 11/18/21 18:[address] 11/18/21 16:29 IMPRESSION: No acute intracranial abnormality. Chest X-Ray 11/18/21 17:41 IMPRESSION: No acute findings. Shoulder X-Ray 11/18/21 17:41 IMPRESSION: No acute findings. Mild osteoarthritis of the acromioclavicular joint. Laboratory Results WBC 10.6 10^3/uL (4.0-10.0) H 11/18/21 16:50 RBC 5.52 10^6/uL (4.1-5.3) H 11/18/21 16:50 Hgb 15.8 g/dL (11.5-15.3) H 11/18/21 16:50 Hct 50.0 % (37.0-47.0) H 11/18/21 16:50 MCV 90.6 fl (81-99) 11/18/21 16:50 MCH 28.6 pg (28.0-34.0) 11/18/21 16:50 MCHC 31.6 g/dL (30.0-36.0) 11/18/21 16:50 RDW 15.4 % (12.1-15.1) H 11/18/21 16:50 Plt Count 242 10^3/cmm (130-400) 11/18/21 16:50 MPV 11.0 fL (7.4-10.4) H 11/18/21 16:50 Neut % (Auto) 56.7 % 11/18/21 16:50 Lymph % (Auto) 31.4 % 11/18/21 16:50 [place] % (Auto) 7.1 % 11/18/21 16:50 Eos % (Auto) 2.8 % 11/18/21 16:50 Baso % (Auto) 0.8 % 11/18/21 16:50 Neut # (Auto) 6.00 10^3/uL (1.8-7.7) 11/18/21 16:50 Lymph # (Auto) 3.3 10^3/uL (0.8-4.8) 11/18/21 16:50 [place] # (Auto) 0.8 10^3/uL (0.2-0.9) 11/18/21 16:50 Eos # (Auto) 0.3 10^3/uL (0.0-0.8) 11/18/21 16:50 Baso # (Auto) 0.1 10^3/uL (0.0-0.1) 11/18/21 16:50 Nucleated RBC % (auto) 0 % 11/18/21 16:50 Nucleated RBCs # 0.0 /100WBC 11/18/21 16:50 Sodium 138 mmol/L (136-145) 11/18/21 18:00 Potassium 4.3 mmol/L (3.5-5.1) 11/18/21 18:00 Chloride 103 mmol/L (98-107) 11/18/21 18:00 Carbon Dioxide 22 mmol/L (22-29) 11/18/21 18:00 Anion Gap 17.3 (5-19) 11/18/21 18:00 BUN 19 mg/dL (6-20) 11/18/21 18:00 Creatinine 0.8 mg/dL (0.5-0.9) 11/18/21 18:00 GFR Calculation 73.4 mL/min (90-130) L 11/18/21 18:00 Glucose 256 mg/dL (65-115) H 11/18/21 18:00 Calculated Osmolality 297 mOsm/kg (285-295) H 11/18/21 18:00 Calcium 9.4 mg/dL (8.5-10.5) 11/18/21 18:00 Total Bilirubin 0.2 mg/dL (0.15-1.2) 11/18/21 18:00 AST 19 U/L (0-32) 11/18/21 18:00 ALT 21 U/L (0-33) 11/18/21 18:00 Alkaline Phosphatase 97 IU/L (35-105) 11/18/21 18:00 Troponin T Baseline 17 ng/L (0-10) H 11/18/21 18:00 Troponin T 120 Minute 16.83 ng/L (0-10) H 11/18/21 20:16 Delta Troponin T -0.17 ABS# (0-10) L 11/18/21 20:16 Total Protein 7.6 g/dL (6.6-8.7) 11/18/21 18:00 Albumin 4.1 g/dL (3.5-5.2) 11/18/21 18:00 Globulin 3.5 g/dL (1.3-4.6) 11/18/21 18:00 Discharge Plan Discharge Patient Disposition: Left Against Medical Advice Clinical Impression: Arm pain, Chest pain, Chronic pain Condition: Stable Prescriptions: No Action nicotine 21 mg/24 hr patch 24 hour 1 patch transdermal DAILY Qty: 28 6RF furosemide 20 mg tablet 20 mg PO DAILY PRN0RF aspirin [Adult Aspirin Regimen] 81 mg tablet,delayed release (DR/EC) 81 mg PO DAILY 0RF albuterol sulfate [Ventolin HFA] 90 mcg/actuation HFA aerosol inhaler 1 inh inhalation QID PRN (Reason: shortness of breath or wheezing) Qty: 6.7 3RF Advair HFA 115-21 mcg/actuation HFA aerosol inhaler 2 puff inhalation Q12H Qty: 12 2RF albuterol sulfate 2.5 mg /3 mL (0.083 %) solution for nebulization 2.5 mg inhalation QID PRN (Reason: shortness of breath or wheezing) Qty: 180 3RF ibuprofen 800 mg tablet 800 mg PO TID PRN (Reason: pain) Qty: 180 1RF gabapentin 600 mg tablet 600 mg PO .qhs Qty: 90 3RF Novolog Flexpen U-100 Insulin 100 unit/mL (3 mL) insulin pen See Rx Instructions .ROUTE .COMPLEX Qty: 15 3RF Rx Instructions: Please run through 340b Take 3 times daily with meal Fingerstick Blood Glucose Insulin Units 141-180 mg/dl 6 units/SQ 181-220 mg/dl 8 units/SQ 221-260 mg/dl 10 units/SQ 261-300 mg/dl 12 units/SQ 301-350 mg/dl 14 units/SQ 351-400 mg/dl 16 units/SQ greater than 400 mg/dl 18 units/SQ Levemir FlexTouch U-100 Insuln 100 unit/mL (3 mL) insulin pen 30 unit SUBCUT Q12H 30 Days Qty: 18 1RF Rx Instructions: please run through 340b baclofen 20 mg tablet 20 mg PO .qhs Qty: 30 2RF rosuvastatin [Crestor] 5 mg tablet 5 mg PO DAILY Qty: 30 1RF lisinopril 10 mg tablet 10 mg PO DAILY Qty: 30 2RF Jardiance 25 mg tablet 25 mg PO QAM Qty: 30 2RF nystatin 100,000 unit/gram cream 1 applic topical BID Qty: 30 3RF (DME) nebulizer mask and tubing supplies See Rx Instructions .Route .MEDSUPPLY Qty: 1 0RF Rx Instructions: As directed Nexium 40 mg capsule,delayed release(DR/EC) 40 mg PO BID Qty: 180 1RF amitriptyline 50 mg tablet See Rx Instructions .ROUTE .COMPLEX Qty: 270 4RF Dose Instruction: take THREE tablets BY MOUTH AT BEDTIME Rx Instructions: take THREE tablets BY MOUTH AT BEDTIME hydrocodone-acetaminophen 5-325 mg tablet 1 tab PO Q6H PRN (Reason: pain) Qty: 14 0RF Sign Out Sign Out Data: Patient Sign Out occurred on 11/18/21 at 18:10. Patient's care was discussed, and care was transferred from to Germain Kern MD. Post-Handoff Eval: See MDM. Coding Level of Care Code ED Wafer Fab Operator for Markieg Fwd Exam Comprehensive NIH stroke score Score Total Score: 0
--- NOTE | 2021-11-18 16:29 | CTR_ITS ---
PROCEDURE INFORMATION: Exam: CT Head Without Contrast Exam date and time: 11/18/2021 4:29 PM Age: 61 years old Clinical indication: Weakness, extremity; Additional info: Extremity numbness TECHNIQUE: Imaging protocol: Computed tomography of the head without contrast. Radiation optimization: All CT scans at this facility use at least one of these dose optimization techniques: automated exposure control; mA and/or kV adjustment per patient size (includes targeted exams where dose is matched to clinical indication); or iterative reconstruction. COMPARISON: CT head wo con* [id number] 07/17/2020 7:23 PM RADIATION DOSE METRICS: Total DLP (mGy-cm): 971.27 FINDINGS: Brain: No hemorrhage. No edema. Mild diffuse cerebral atrophy and sequela of chronic small vessel ischemic disease. No mass effect. Cerebral ventricles: No ventriculomegaly. Paranasal sinuses: Visualized sinuses are unremarkable. No fluid levels. Mastoid air cells: Visualized mastoid air cells are well aerated. Bones/joints: Unremarkable. No acute fracture. Soft tissues: Unremarkable. CT/CT head wo con* [id number] IMPRESSION: No acute intracranial abnormality.
--- NOTE | 2021-11-18 16:29 | ECG_ITS ---
[facility] Test Date: 2021-11-18 Pat Name: Sandra Jarquin Department: Room: Gender: Female Bilingual Instructor: : 1960 Requested By: Carlos Swenson Order Number: [id number] Rhys MD: Yun Gore M.D. Measurements Intervals [place] Rate: 82 P: 33 [place]: 194 QRS: 50 QRSD: 99 T: 53 QT: 382 QTc: 447 Interpretive Statements SINUS RHYTHM LOW QRS VOLTAGE IN PRECORDIAL LEADS [QRS DEFLECTION < 1.0 mV IN CHEST LEADS] Compared to ECG 11/18/2021 16:50:43 ST (T wave) deviation no longer present Myocardial infarct finding no longer present Electronically Signed On 11-18-2021 21:20:58 MID LEVEL NET DEVELOPER by Yun Gore M.D. [id number]
[2021-11-18 16:41] VITALS: BP 177/93; PULSE 94; RESP 16; O2SAT 95
[2021-11-18 17:14] LABS: Basophils # 0.1 10^3/uL (0.0-0.1); Basophils % 0.8 %; Eosinophils # 0.3 10^3/uL (0.0-0.8); Eosinophils % 2.8 %; Hemoglobin 15.8 g/dL (11.5-15.3); Lymphocytes # 3.3 10^3/uL (0.8-4.8); Lymphocytes % 31.4 %; Mean Corpuscular HGB Conc 31.6 g/dL (30.0-36.0); Mean Corpuscular Hemoglobin 28.6 pg (28.0-34.0); Mean Corpuscular Volume 90.6 fl (81-99); Monocytes # 0.8 10^3/uL (0.2-0.9); Monocytes % 7.1 %; Neutrophils % 56.7 %; Nucleated Red Blood Cells % 0 %; Platelet Count 242 10^3/cmm (130-400); Red Blood Count 5.52 10^6/uL (4.1-5.3); Red Cell Distribution Width 15.4 % (12.1-15.1); White Blood Count 10.6 10^3/uL (4.0-10.0)
--- NOTE | 2021-11-18 17:41 | XRR_ITS ---
PROCEDURE INFORMATION: Exam: XR Right Shoulder Exam date and time: 11/18/2021 5:41 PM Age: 61 years old Clinical indication: Right; Patient HX: RT shoulder pain since this am; Additional info: [id number] TECHNIQUE: Imaging protocol: XR Right shoulder. Views: 2 or more views. COMPARISON: CR XR chest 2V* [id number] 07/07/2021 1:06 PM FINDINGS: Bones/joints: Osseous structures are intact. Negative for fracture. Mild osteoarthritis of the acromioclavicular joint. Soft tissues: Normal. XR/XR shoulder RT min 2V* [id number] IMPRESSION: No acute findings. Mild osteoarthritis of the acromioclavicular joint.
--- NOTE | 2021-11-18 17:41 | XRR_ITS ---
PROCEDURE INFORMATION: Exam: XR Chest Exam date and time: 11/18/2021 5:41 PM Age: 61 years old Clinical indication: Shortness of breath; Patient HX: SOB since this am; Additional info: Dyspnea/cough TECHNIQUE: Imaging protocol: XR of the chest. Views: 1 view. COMPARISON: CR XR chest 2V* [id number] 07/07/2021 1:06 PM FINDINGS: Lungs: No consolidation. Pleural spaces: No pleural effusion. No pneumothorax. Heart/Mediastinum: No cardiomegaly. Bones/joints: Visualized osseous structures are intact. Mild osteoarthritis of both acromioclavicular joints. Multilevel endplate degenerative changes of the thoracic spine noted. XR/XR chest 1V portable [id number] IMPRESSION: No acute findings.
[2021-11-18 18:26] LABS: Troponin(5th) Baseline 17 ng/L (0-10)
[2021-11-18 18:28] LABS: Alanine Aminotransferase 21 U/L (0-33); Albumin Level 4.1 g/dL (3.5-5.2); Alkaline Phosphatase 97 IU/L (35-105); Anion Gap 17.3 (5-19); Aspartate Amino Transferase 19 U/L (0-32); Blood Urea Nitrogen 19 mg/dL (6-20); Calcium 9.4 mg/dL (8.5-10.5); Carbon Dioxide 22 mmol/L (22-29); Chloride 103 mmol/L (98-107); Globulin 3.5 g/dL (1.3-4.6); Glomerular Filtration Rate 73.4 mL/min (90-130); Glucose 256 mg/dL (65-115); Osmolality Calculated 297 mOsm/kg (285-295); Potassium 4.3 mmol/L (3.5-5.1); Sodium 138 mmol/L (136-145); Total Bilirubin 0.2 mg/dL (0.15-1.2); Total Protein 7.6 g/dL (6.6-8.7)
--- NOTE | 2021-11-18 18:29 | ECG_ITS ---
[facility] Test Date: 2021-11-18 Pat Name: Sandra Jarquin Department: Room: Gender: Female Men'S Leather Dress Belt Maker: : 1960 Requested By: Carlos Swenson Order Number: [id number] Rhys MD: Yun Gore M.D. Measurements Intervals [place] Rate: 88 P: 47 [place]: 198 QRS: 56 QRSD: 82 T: 55 QT: 357 QTc: 432 Interpretive Statements SINUS RHYTHM LOW QRS VOLTAGE IN PRECORDIAL LEADS [QRS DEFLECTION < 1.0 mV IN CHEST LEADS] ST ELEVATION, CONSIDER INFERIOR INJURY [MARKED ST ELEVATION W/O NORMALLY INFLECTED T-WAVE IN II/aVF] Compared to ECG 07/17/2020 21:57:17 ST (T wave) deviation now present Myocardial infarct finding now present Electronically Signed On 11-18-2021 21:26:02 CROSS TIE TRAM LOADER by Yun Gore M.D. [email or web address]/store/[id number]
[2021-11-18] MEDS: ketorolac 30 mg/mL INJ IVP (18:53)
[2021-11-18] MEDS: orphenadrine 30 mg/mL Inj 2 mL 60 MG IVP (18:53)
[2021-11-18 19:31] VITALS: BP 130/91; PULSE 87; RESP 20; O2SAT 94
[2021-11-18 20:50] LABS: Troponin 5 2HR 16.83 ng/L (0-10)
[2021-11-18 20:52] VITALS: RESP 18; O2SAT 94
[2021-11-18] MEDS: acetaminophen 500 mg Tablet 1000 MG PO (20:52)
[2021-11-18] MEDS: oxyCODONE 5 mg IR Tab/Cap PO (20:52)
[2021-11-18 21:05] LABS: Troponin 5 2HR Delta -0.17 ABS# (0-10)
--- NOTE | 2021-11-18 21:19 | PC.NURSE ---
Pt approaches nurses desk asking to leave, sts I'm walking out of here . She is refusing to sign out AMA and is using foul language towards staff members. This RN confirms IV has been removed, and pt ambulates from ED.
== END 2021-11-18 21:24 | disposition left against medical advice (07) ==
PROVIDERS: Family Medicine; Emergency Provider Emergency Medicine
DX: R07.9 Chest pain, unspecified (principal); G89.29 Other chronic pain; M79.601 Pain in right arm; Z79.82 Long term (current) use of aspirin; Z79.4 Long term (current) use of insulin; J44.9 Chronic obstructive pulmonary disease, unspecified; Z85.41 Personal history of malignant neoplasm of cervix uteri; I10 Essential (primary) hypertension; E11.9 Type 2 diabetes mellitus without complications; F17.210 Nicotine dependence, cigarettes, uncomplicated; Z53.21 Procedure and treatment not carried out due to patient leaving prior to being seen by health care provider
CPT/HCPCS: 70450; 71045; 73030; 80053; 84484; 85025; 93005; 96374; 96375; 99284; J1885; J2360

== ENCOUNTER 2022-01-18 10:45 | Observation (INO) | payer MEDICARE, MEDICAID, SELFPAY ==
[2022-01-12 10:42] VITALS: BMI 37.2
--- NOTE | 2022-01-12 10:49 | ANES.PREANE2 ---
Pre-Anesthetic Assessment Height/Weight: Height 1.73 m Weight 111.13 kg Preop Diagnosis: Osteoarthritis Left knee Operation Date: 01/18/22 07:00 Proposed Procedures p Left Total Knee Arthroplasty 54985/m17.0(Left) - Johny Walker MD Familial anesthetic complications: None Was Beta Jaxon taken within 24 hours: N/A Was Clonidine taken within 24 hours: N/A Social Tobacco and No alcohol Exam alert, oriented x 3 and regular rate & rhythm rhonchi Airway Submandibular: within normal limits Cervical ROM: within normal limits Mallampati: Class II Dentition: false Pulmonary Chronic Obstructive Pulmonary Disease CV/HEM Hypertension Metabolic Diabetes Mellitus and Morbid Obesity Neuropsych Anxiety and Transient Ischemic Attack Anesthetic Plan ASA status: 3 Anesthesia: Regional (specify below) (SAB with adductor blk) Medications/Allergies Home Medications Medication Instructions Recorded Confirmed Last Taken Type albuterol sulfate 2.5 mg (3 mL) INHALATION QID PRN 07/06/21 01/12/22 Unknown Rx #180 ml albuterol sulfate 90 mcg/actuation 1 inh INHALATION QID PRN #6.7 g 07/06/21 01/12/22 Unknown Rx aerosol inhaler (Ventolin HFA) aspirin 81 mg tablet,delayed 81 mg PO DAILY 07/06/21 01/12/22 Unknown History release (Adult Aspirin Regimen) nebulizer mask and tubing supplies #1 ea 07/30/21 12/30/21 Unknown Rx esomeprazole magnesium 40 mg 40 mg PO BID #180 cap 09/02/21 01/12/22 Unknown Rx capsule,delayed release (Nexium) amitriptyline 50 mg tablet See Rx Instructions .ROUTE 09/09/21 01/12/22 Unknown Rx .COMPLEX #270 tab ibuprofen 800 mg tablet 800 mg PO TID PRN #180 tab 09/22/21 01/12/22 Unknown Rx insulin aspart U-100 100 unit/mL See Rx Instructions .ROUTE 09/22/21 01/12/22 Unknown Rx (3 mL) subcutaneous pen (Novolog .COMPLEX #15 ml Flexpen U-100 Insulin aspart) insulin detemir U-100 100 unit/mL 30 unit (0.3 mL) SUBCUT Q12H 30 09/22/21 01/12/22 Unknown Rx (3 mL) subcutaneous pen (Levemir Days #18 ml FlexTouch U-100 Insulin) gabapentin 800 mg tablet 800 mg PO QID #120 tab 11/23/21 01/12/22 Unknown Rx nicotine See Rx Instructions TRANSDERMAL 12/22/21 01/12/22 Unknown Rx 21mg/24hr-14mg/24hr-7mg/24hr daily .COMPLEX #56 patch transderm patches,sequentl fluticasone propionate 115 See Rx Instructions .ROUTE 12/24/21 01/12/22 Unknown Rx mcg-salmeterol 21 mcg/actuation .COMPLEX #12 g HFA inhaler (Advair HFA) Allergies Allergy/AdvReac Type Severity Reaction Status Date / Time tramadol Allergy ADR-Agitate Verified 01/12/22 10:14 d [facility] Anesthesia Medical History COPD (chronic obstructive pulmonary disease) COPD (chronic obstructive pulmonary disease) Depression History of cervical cancer Hypertension Morbid obesity Type 2 diabetes mellitus Surgical History History of knee surgery scope and shot in the right knee History of partial hysterectomy Family History Sister Diabetes Cancer Thyroid cancer Father Cancer mouth cancer Mother Cancer Pancreatic cancer Denies family history of Hyperlipidemia Chronic kidney disease (CKD) Hypertension Thyroid disease Stroke Social History Smoking and tobacco status: current every day smoker Alcohol intake: never Household members: spouse Housing: House Data Anesthesia Cardiac Studies: Echocardiogram Ultrasound 11/03/19
[2022-01-12 11:20] LABS: Anion Gap 14.6 (5-19); Blood Urea Nitrogen 14 mg/dL (6-20); Calcium 9.9 mg/dL (8.5-10.5); Carbon Dioxide 28 mmol/L (22-29); Chloride 100 mmol/L (98-107); Glomerular Filtration Rate 85.6 mL/min (90-130); Glucose 184 mg/dL (65-115); Osmolality Calculated 291 mOsm/kg (285-295); Potassium 4.6 mmol/L (3.5-5.1); Sodium 138 mmol/L (136-145)
[2022-01-18] VITALS (15 sets, daily range): BP systolic 107–170; BP diastolic 52–113; PULSE 76–97; RESP 15–18; TEMP 36.3–36.7; O2SAT 91–98
[2022-01-18 06:20] LABS: Glucose Point of Care 333 mg/dL (70-110)
[2022-01-18] MEDS: sodium chloride 0.9% 1,000 ML 30 ML IV (06:22)
[2022-01-18] MEDS: acetaminophen 500 mg Tablet 1000 MG PO ×2 (06:23→15:15)
[2022-01-18] MEDS: CELEcoxib 200 mg Capsule 400 MG PO (06:23)
[2022-01-18] MEDS: gabapentin 300 mg Capsule PO (06:24)
[2022-01-18] MEDS: oxyCODONE 20 mg ER (12 HR) Tablet PO (06:25)
--- NOTE | 2022-01-18 06:48 | P.ANESUD_ITS ---
Pre-Anesthetic Update Pre-Anesthetic Assessment: Date of Surgery/Procedure: 01/18/22 Preop Jaclyn gnosis: Osteoarthritis Left knee Proposed Procedure: Operation Date: 01/18/22 07:00 Proposed Procedures p Left Total Knee Arthroplasty 86737/m17.0(Left) - Johny Walker MD Any changes to Pre-Anesthetic Assessment?: No Last Intake: Intake Last Liquid Date 01/17/22 Last Liquid Time 19:00 Last Solid Date 01/17/22 Last Solid Time 22:00 Vitals: Temperature 97.3 F L 01/18/22 06:11 Temperature Source Temporal Artery S can 01/18/22 06:11 Pulse Rate 97 01/18/22 06:11 Respiratory Rate 16 01/18/22 06:25 Respiratory Effort 01/18/22 06:25 Respiratory Depth Normal 01/18/22 06:25 Respiratory Patter n 01/18/22 06:25 Blood Pressure 170/113 01/18/22 06:11 Blood Pressure Leticia n 132 01/18/22 06:11 Pulse Oximetry 98 01/18/22 06:25 Oxygen Delivery Me thod 01/18/22 06:11 Exam: Pre-Anes Outpt Exam: alert, oriented x 3, clear to auscultation bilaterally and regular rate & rhythm Cardiac Studies: Echocardiogram Ultrasound 11/03/19
[2022-01-18] MEDS: insulin regular-human 100 units/1 mL 10 UNIT IVP (06:55)
--- NOTE | 2022-01-18 07:01 | P.HP_ITS ---
Same Day Surgery H&P Indication for Procedure/HPI DATE OF PROCEDURE: January 18, 2022 CHIEF COMPLAINT/INDICATIONFOR SURGICAL PROCEDURE: Osteoarthritis left knee here for left total knee arthroplasty PREOP DIAGNOSIS: Osteoarthritis Left knee PLANNED PROCEDURE: Operation Date: 01/18/22 07:00 Proposed Procedures p Left Total Knee Arthroplasty 50554/m17.0(Left) - Johny Walker MD 61-year-old female with years of bilateral knee pain. She has failed injections including corticosteroids and viscosupplementation. She has failed treatment with ibuprofen and even in the past narcotics. She has significant functional limitations and is here for elective left total knee arthroplasty Medications/Allergies* Home Medications Medication Instructions Recorded Confirmed Type aspirin 81 mg tablet,delayed 81 mg PO DAILY 07/06/21 01/18/22 History release (Adult Aspirin Regimen) Allergies/Adverse Reactions Allergy/AdvReac Type Severity Reaction Status Date / Time tramadol Allergy ADR-Agitate Verified 01/12/22 10:14 d Current Medications: Generic Name Dose Route Start Last Admin Trade Name Freq PRN Reason Stop Dose Admin Sodium Chloride 1,000 mls @ 30 mls/hr 01/18/22 06:15 01/18/22 06:22 Sodium Chloride 0.9% IV 01/19/22 06:14 30 mls/hr .Q24H FRANK Administration Pertinent History/Comorbid Conditions* Medical History (Updated 01/13/22 @ 12:03 by Sunni Miguel MD) COPD (chronic obstructive pulmonary disease) COPD (chronic obstructive pulmonary disease) Depression History of cervical cancer Hypertension Morbid obesity Type 2 diabetes mellitus Surgical History (Updated 07/06/21 @ 10:46 by Sunni Miguel MD) History of knee surgery scope and shot in the right knee History of partial hysterectomy Family History (Updated 06/26/21 @ 07:51 by Jerilyn Calderon LPN) Diabetes Sister Cancer Sister Thyroid cancer Father mouth cancer Mother Pancreatic cancer Denies family history of Hyperlipidemia Chronic kidney disease (CKD) Hypertension Thyroid disease Stroke Social History Smoking and tobacco status: current every day smoker Alcohol intake: never Household members: spouse Housing: House Pertinent Exam Findings alert, oriented x 3, clear to auscultation bilaterally, regular rate & rhythm and operative site marked Recommendations Surgery/Procedure today Coding Level of Care Code Acute [facility] Social Worker for [facility] Joy
[2022-01-18] MEDS: tranexamic acid 1,000 mg/10mL SDV 1000 MG IV (07:15)
[2022-01-18] MEDS: tranexamic acid 1,000 mg/10mL SDV 1000 MG XX (07:47)
[2022-01-18] MEDS: EPINEPHrine 1 mg/mL INJ XX (07:48)
[2022-01-18] MEDS: ketorolac 30 mg/mL INJ XX (07:48)
--- NOTE | 2022-01-18 08:59 | PM.OP ---
Operative Report Date of procedure: January 18, 2022 Pre-op diagnosis: Preop Diagnosis Osteoarthritis Left knee Post-op diagnosis: same Post-op diagnosis: Same Post-op findings: Same Procedure done: Left total knee arthroplasty Implants: Wendell total knee arthroplasty components were used includin) Size 4 triathalon cruciate retaining femoral component 2) Size 4 Tritanium tibial component 3) 35 mm /11 mm thickness Tritanium asymetric patella 4) Size 4/[]mm thickness CR tibial bearing insert Pathology: none sent Surgeon: Johny Walker Anesthesia: Nerve Block (Spinal, adductor canal block) Estimated blood loss: 100 Findings: Patient had eburnated bone in the medial femoral condyle medial tibial plateau patella and trochlea Condition: stable Disposition: PACU Procedure: The patient was taken to the operating room. Patient was given 1 g of tranexamic acid . The above anesthesia provided by the anesthesia service. A timeout was performed. The patient was prepped and draped in the usual fashion with the lower extremity exposed. A anterior incision was made, midline, from a point proximal to the patella to the distal tibial tubercle. The knee was entered through a medial parapatellar approach. The patella could be displaced laterally and the knee flexed. The patellar fat pad was resected to provide better visibility. Retractors were placed medially and laterally adjacent to the tibial plateau. The femoral canal was drilled in line with the longitudinal axis of the femur. Intramedullary femoral guide for used to make a distal femoral cut in 5 degrees of valgus, resecting 8 mm from the more prominent condyle. Next the extra medullary tibial guide was placed in alignment with the longitudinal axis of the tibia. The cutting guides were set to remove just over 9 mm from the high tibial plateau. The proximal tibia was then cut. The femoral measuring guide was then placed over the distal femur. Rotation was verified checking the relationship of the guide to the condyle and the trochlear groove. The femur was measured and cut for the desired femoral component. The desired tibial baseplate was then chosen. A trial reduction with the femur tibial baseplate and polyethylene was done, assuring that the knee was stable throughout full motion. Ligament balancing nothing more than released the deep medial collateral ligament.The tibia was prepared for the tibial baseplate. Patellar thickness was then measured. The patella was cut removing articular cartilage and prepared for appropriate size patellar button. The knee was in surfaces were irrigated with a sterile saline solution. The femur tibia and patella were then press fit into place. The posterior capsule and collateral ligaments were then injected with a solution of 100 mL of 0.2% ropivacaine, 1 mL of a 1:1000 epinephrine solution, 30 mg of Toradol, and 1 g of tranexamic acid. Final polyethylene component was then snapped into place into the tibia. The extensor retinaculum was closed with a running 1 Stratafix interrupted 1 Ethibond. The subcutaneous tissues were closed with 2-0 Vicryl and the skin was closed with a running 4-0 Stratafix. The wound was covered with a Dermabond Prineo dressing. It was covered with 4xrs and a compressive Tubigauze was applied. The patient was taken to recovery room in stable condition.
--- NOTE | 2022-01-18 09:10 | XR_ITS ---
WS: [id number] Exam: XR knee LT 1-2V [id number] Date/Time of Exam: 01/18/2022 9:13 AM Reason For Exam: Left total knee Comparison 11/13/2021. A total knee prosthesis is in place in satisfactory position. Postoperative changes in the adjacent s oft tissues. XR/XR knee LT 1-2V [id number] IMPRESSION: 1. Total knee replacement in satisfactory position.
[2022-01-18 09:28] LABS: Glucose Point of Care 214 mg/dL (70-110)
[2022-01-18] MEDS: sodium chloride 0.9% 1,000 ML 100 ML IV (11:53)
--- NOTE | 2022-01-18 11:58 | ANES.PROC ---
Anesthesia Procedures Procedure/Date: 01/18/22 Nerve Block ^: Nerve Block 1: Main Anesthesia: spinal anesthesia block Consent: requested by attending/covering physician, from patient, risks and benefits reviewed and patient agrees to proceed Nerve block location: adductor canal (left) Anesthesia monitors applied: pulse oximetry, EKG, BP cuff and oxygen Nerve block position: supine Anesthetic Used: ropivicaine 0.5% Amount of anesthesia used (mL): 20 Ultrasound used to: recognize landmarks Nerve Stimulator Used?: No Interscalene/Femoral BLK: 2 stimuplex 22 g needle used for position and inplane approach Injection: neg aspiration of heme Patient Tolerated Procedure: well Complications: none
--- NOTE | 2022-01-18 12:13 | PC.NURSE ---
Patient arrived to OB department from PACU at this time
[2022-01-18 12:33] LABS: Glucose Point of Care 220 mg/dL (70-110)
[2022-01-18] MEDS: gabapentin 400 mg Capsule 800 MG PO (12:42)
[2022-01-18] MEDS: insulin lispro 100 unit/1 mL SUBCUT (12:42)
--- NOTE | 2022-01-18 13:41 | PC.NURSE ---
PT at bedside working with patient at this time
--- NOTE | 2022-01-18 14:15 | ANE.PACU2 ---
Inpatient post-anesthesia follow up: Airway intact: Yes Vital signs: Temperature 97.8 F Pulse Rate 87 Respiratory Rate 18 Blood Pressure 130/64 Pulse Oximetry 95 Oxygen Delivery Me thod Room Air Oxygen Flow Rate Fraction of Inspir ed Oxygen Hydration adequate: Yes Nausea and vomiting: No Pain level: 1 Mental status: Baseline
--- NOTE | 2022-01-18 15:20 | PC.NURSE ---
Ice packs changed at this time.
--- NOTE | 2022-01-18 16:46 | P.DS_ITS ---
Discharge Providers Date of Admission: 01/18/22 10:45 Date of Discharge: January 18, 2022 Attending Provider at Admission: Johny Walker MD Attending Provider at Discharge: Johny Walker MD Primary Care Provider: Sunni Miguel MD Diagnoses at Discharge Discharge Diagnosis (1) Osteoarthritis of left knee: Status: Resolved (2) Status post left knee replacement: Status: Acute Reason for Visit Reason for Visit: arthritis of both knees Hospital Course Hospital Course The patient tolerated surgery well. They remained hemodynamically stable. They was begun on aspirin and foot pumps for DVT prophylaxis. The patient was mobilized with therapy beginning the day of surgery and by the end of the operative day was independent with the walker. As the pain was adequately controlled and they were fully mobile they were discharged home. Physical Exam Narrative: On the day of discharge the knee incision was clean. They had no drainage. There is minimal swelling in the thigh and knee and the calf. No distal neurovascular deficits were noted Discharge Data Studies Completed and Pending Completed Studies During Hospitalization Category Date Time Status XR knee LT 1-2V [id number] Routine Exams 01/18/22 09:10 Completed Pending at discharge Category Date Time Status Hemoglobin AM LABS Lab 01/19/22 04:00 Ordered Radiology Impressions Knee X-Ray 01/18/22 09:10 IMPRESSION: 1. Total knee replacement in satisfactory position. Laboratory Results Sodium 138 mmol/L (136-145) 01/12/22 10:35 Potassium 4.6 mmol/L (3.5-5.1) 01/12/22 10:35 Chloride 100 mmol/L (98-107) 01/12/22 10:35 Carbon Dioxide 28 mmol/L (22-29) 01/12/22 10:35 Anion Gap 14.6 (5-19) 01/12/22 10:35 BUN 14 mg/dL (6-20) 01/12/22 10:35 Creatinine 0.7 mg/dL (0.5-0.9) 01/12/22 10:35 GFR Calculation 85.6 mL/min (90-130) L 01/12/22 10:35 Glucose 184 mg/dL (65-115) H 01/12/22 10:35 POC Glucose 220 mg/dL (70-110) H 01/18/22 12:30 Calculated Osmolality 291 mOsm/kg (285-295) 01/12/22 10:35 Calcium 9.9 mg/dL (8.5-10.5) 01/12/22 10:35 Vitals Last Vital Signs Temp 97.8 F 01/18/22 13:45 Pulse 87 01/18/22 13:45 Resp 18 01/18/22 13:45 BP 130/64 01/18/22 13:45 Pulse Ox 95 01/18/22 13:45 Discharge Plan Discharge Patient Disposition: Home Health Service Condition: Stable Prescriptions: New celecoxib 200 mg Capsule 200 mg PO Q12H 14 Days Qty: 28 0RF acetaminophen 500 mg Tablet 1,000 mg PO Q8H 14 Days Qty: 84 0RF oxycodone 5 mg tablet 5 mg PO Q4H PRN (Reason: pain) 7 Days Qty: 40 0RF Continued aspirin [Adult Aspirin Regimen] 81 mg tablet,delayed release (DR/EC) 81 mg PO DAILY 0RF albuterol sulfate [Ventolin HFA] 90 mcg/actuation HFA aerosol inhaler 1 inh inhalation QID PRN (Reason: shortness of breath or wheezing) Qty: 6.7 3RF albuterol sulfate 2.5 mg /3 mL (0.083 %) solution for nebulization 2.5 mg inhalation QID PRN (Reason: shortness of breath or wheezing) Qty: 180 3RF Novolog Flexpen U-100 Insulin 100 unit/mL (3 mL) insulin pen See Rx Instructions .ROUTE .COMPLEX Qty: 15 3RF Rx Instructions: Please run through 340b Take 3 times daily with meal Fingerstick Blood Glucose Insulin Units 141-180 mg/dl 6 units/SQ 181-220 mg/dl 8 units/SQ 221-260 mg/dl 10 units/SQ 261-300 mg/dl 12 units/SQ 301-350 mg/dl 14 units/SQ 351-400 mg/dl 16 units/SQ greater than 400 mg/dl 18 units/SQ Levemir FlexTouch U-100 Insuln 100 unit/mL (3 mL) insulin pen 30 unit SUBCUT Q12H 30 Days Qty: 18 1RF Rx Instructions: please run through 340b gabapentin 800 mg tablet 800 mg PO QID Qty: 120 2RF (DME) Diabetic shoes and inserts See Rx Instructions .Route .MEDSUPPLY Qty: 1 0RF Rx Instructions: As directed trazodone 50 mg tablet 100 mg PO .qhs Qty: 60 2RF Rx Instructions: Take one tab at night for a week, then take two at night (DME) nebulizer mask and tubing supplies See Rx Instructions .Route .MEDSUPPLY Qty: 1 0RF Rx Instructions: As directed Nexium 40 mg capsule,delayed release(DR/EC) 40 mg PO BID Qty: 180 1RF nicotine 21-14-7 mg/24 hr patch, TD daily, sequential See Rx Instructions transdermal .COMPLEX Qty: 56 0RF Rx Instructions: apply 1-21 mg NICOTINE PATCH daily for 28 days; follow with 1-14 mg PATCH daily for 14 days, then 1-7mg PATCH daily for 14 days transdermal Advair HFA 115-21 mcg/actuation HFA aerosol inhaler See Rx Instructions .ROUTE .COMPLEX Qty: 12 2RF Dose Instruction: INHALE TWO PUFFS BY MOUTH EVERY TWELVE HOURS Rx Instructions: INHALE TWO PUFFS BY MOUTH EVERY TWELVE HOURS Discontinued ibuprofen 800 mg tablet 800 mg PO TID PRN (Reason: pain) Qty: 180 1RF Discharge Orders: Discharge Order (Routine); Ordered 01/18/22 Ordered By: Johny Walker Other Ambulatory Orders: DME: Nazario (Order) Location: None Selected Ordered By: Johny Walker Referrals: [facility] [place] [Outside] [facility] [place] Home Care ([facility]) [Outside] Johny Walker MD [Physician] - 01/22/22 8:00 am Discharge Diet: Advance as tolerated Discharge Activity: Limit activity as instructed Patient Instructions: Opioid Safety Discharge Attestations Time Spent in Discharge Care*: other Quality Metrics Clinical Quality Measures [ No reported AMI, CVA or VTE this stay] Coding Level of Care Code Acute [facility] DC note Diagnoses Osteoarthritis of left knee M17.12 Status post left knee replacement Z96.652
== END 2022-01-18 18:14 | disposition home health service (06) ==
LOC: OBGYN 11:13
PROVIDERS: Anesthesiology; Admitting Provider Orthopaedic Surgery; PCP Family Medicine; Visit Provider Orthopaedic Surgery
PROC: (CPT 27447; principal; 2022-01-18 07:00)
DX: M17.12 Unilateral primary osteoarthritis, left knee (principal); J44.9 Chronic obstructive pulmonary disease, unspecified; F32.9 Major depressive disorder, single episode, unspecified; Z85.41 Personal history of malignant neoplasm of cervix uteri; I10 Essential (primary) hypertension; E66.01 Morbid (severe) obesity due to excess calories; Z68.37 Body mass index [BMI] 37.0-37.9, adult; E11.9 Type 2 diabetes mellitus without complications; F17.210 Nicotine dependence, cigarettes, uncomplicated; F41.9 Anxiety disorder, unspecified; Z86.73 Personal history of transient ischemic attack (TIA), and cerebral infarction without residual deficits; Z79.4 Long term (current) use of insulin
CPT/HCPCS: 27447; 36415; 36416; 64447; 73560; 76942; 80048; 82962; 97110; 97116; 97161; C1776; G0378; J0171; J0690; J1170; J1815; J1885; J2250; J2370; J2405; J2704; J2795; J7030

== ENCOUNTER 2022-02-16 17:53 | Emergency (ER) | payer MEDICARE, MEDICAID, SELFPAY ==
[2022-02-16 18:05] VITALS: BP 174/83; PULSE 94; RESP 16; TEMP 37.1; O2SAT 96; BMI 36.5
--- NOTE | 2022-02-16 18:09 | ED_ITS ---
HPI - Fall General: Chief Complaint: Fall Stated Complaint: Injury Rt Arm and Shoulde Time Seen by Provider: 02/16/22 18:09 History of Present Illness: 62-year-old female comes in today for complaints of right shoulder pain and discomfort. Patient states that she fell last week onto her right shoulder and since then has had increasing pain. Patient reports for the last 3 days the pain has been unbearable. Patient appears nontoxic. Patient appears in moderate pain. No obvious deformity is noted. Distal pulses and sensation are intact. Associated symptoms-after fall: Denies chest pain Review of Systems General: Reports: 10 or more systems reviewed and unremarkable except in HPI and below Card: Denies: chest pain Resp: Denies: dyspnea Musc: Reports: joint pain PFSH ED PFSH: Medical History COPD (chronic obstructive pulmonary disease) COPD (chronic obstructive pulmonary disease) Depression History of cervical cancer Hypertension Morbid obesity Type 2 diabetes mellitus Surgical History History of knee surgery scope and shot in the right knee History of partial hysterectomy Family History Sister Diabetes Cancer Thyroid cancer Father Cancer mouth cancer Mother Cancer Pancreatic cancer Denies family history of Hyperlipidemia Chronic kidney disease (CKD) Hypertension Thyroid disease Stroke Social History Smoking and tobacco status: current every day smoker Alcohol intake: never Household members: spouse Housing: House Physical Exam Const: COMMON NORMALS: alert HENMT: COMMON NORMALS: normocephalic HEAD & SCALP: normocephalic Neck/C-Spine: CERVICAL SPINE: No pain with cervical ROM, No Cervical spine tenderness and Yes Paracervical muscle tenderness right Resp: COMMON NORMALS: normal respiratory effort Cardio: COMMON NORMALS: regular rate RATE: regular rate Extremity: RIGHT UPPER EXTREMITY: Yes shoulder joint (Posterior muscle tenderness and tightness) Right shoulder: Yes Right shoulder joint inspection exam, Yes palpation and Yes Right shoulder joint ROM exam Neuro: SENSORIUM/ORIENTATION: Yes alert Psych: COMMON NORMALS: cooperative Skin: COMMON NORMALS: no rashes or lesions noted GENERAL SKIN EXAM: no rashes or lesions noted Course Vital Signs: Vital signs: Vital Signs Temperature 98.8 F 02/16/22 18:05 Pulse Rate 94 02/16/22 18:05 Respiratory Rate 16 02/16/22 18:05 Blood Pressure 174/83 02/16/22 18:05 Pulse Oximetry 96 02/16/22 18:05 MDM - Fall Medical Decision Making Patient came in for evaluation of right shoulder pain from an injury that occurred about 1 week ago. On exam patient has range of motion of the shoulder but significant muscle tenderness is noted to the trapezius and posterior muscles of the shoulder. Patient reports pain radiating into the arm. Distal pulses and sensation are intact. Differential diagnosis includes but not limited to fracture, sprain, contusion. X-ray noted no fracture or dislocation. Reviewed exam with patient with recommendations for treatment and follow-up. Patient was placed on anti-inflammatory and some hydrocodone for pain. Patient was recommended to follow-up with primary care for further instruction. Patient reported understanding agreed to plan. Lab Data Radiology Impressions Shoulder X-Ray 02/16/22 18:14 IMPRESSION: Negative for acute abnormality. Discharge Plan Discharge Patient Disposition: Home Clinical Impression: Right shoulder pain Qualifiers: Chronicity: acute Qualified Code(s): M25.511 - Pain in right shoulder Condition: Stable Prescriptions: New diclofenac sodium 75 mg tablet,delayed release (DR/EC) 75 mg PO BID Qty: 20 0RF Changed hydrocodone-acetaminophen 7.5-325 mg tablet 1 tab PO Q6H PRN (Reason: pain) 7 Days Qty: 10 0RF Discontinued hydrocodone-acetaminophen 10-325 mg tablet 1 tab PO Q12H 7 Days Qty: 14 0RF No Action aspirin [Adult Aspirin Regimen] 81 mg tablet,delayed release (DR/EC) 81 mg PO DAILY 0RF albuterol sulfate [Ventolin HFA] 90 mcg/actuation HFA aerosol inhaler 1 inh inhalation QID PRN (Reason: shortness of breath or wheezing) Qty: 6.7 3RF albuterol sulfate 2.5 mg /3 mL (0.083 %) solution for nebulization 2.5 mg inhalation QID PRN (Reason: shortness of breath or wheezing) Qty: 180 3RF Novolog Flexpen U-100 Insulin 100 unit/mL (3 mL) insulin pen See Rx Instructions .ROUTE .COMPLEX Qty: 15 3RF Rx Instructions: Please run through 340b Take 3 times daily with meal Fingerstick Blood Glucose Insulin Units 141-180 mg/dl 6 units/SQ 181-220 mg/dl 8 units/SQ 221-260 mg/dl 10 units/SQ 261-300 mg/dl 12 units/SQ 301-350 mg/dl 14 units/SQ 351-400 mg/dl 16 units/SQ greater than 400 mg/dl 18 units/SQ Levemir FlexTouch U-100 Insuln 100 unit/mL (3 mL) insulin pen 30 unit SUBCUT Q12H 30 Days Qty: 18 1RF Rx Instructions: please run through 340b gabapentin 800 mg tablet 800 mg PO QID Qty: 120 2RF (DME) Diabetic shoes and inserts See Rx Instructions .Route .MEDSUPPLY Qty: 1 0RF Rx Instructions: As directed trazodone 50 mg tablet 100 mg PO .qhs Qty: 60 2RF Rx Instructions: Take one tab at night for a week, then take two at night (DME) nebulizer mask and tubing supplies See Rx Instructions .Route .MEDSUPPLY Qty: 1 0RF Rx Instructions: As directed Nexium 40 mg capsule,delayed release(DR/EC) 40 mg PO BID Qty: 180 1RF nicotine 21-14-7 mg/24 hr patch, TD daily, sequential See Rx Instructions transdermal .COMPLEX Qty: 56 0RF Rx Instructions: apply 1-21 mg NICOTINE PATCH daily for 28 days; follow with 1-14 mg PATCH daily for 14 days, then 1-7mg PATCH daily for 14 days transdermal Advair HFA 115-21 mcg/actuation HFA aerosol inhaler See Rx Instructions .ROUTE .COMPLEX Qty: 12 2RF Dose Instruction: INHALE TWO PUFFS BY MOUTH EVERY TWELVE HOURS Rx Instructions: INHALE TWO PUFFS BY MOUTH EVERY TWELVE HOURS clotrimazole 1 % cream 1 applic topical BID Qty: 30 2RF Discharge Orders: Discharge ED (Routine); Ordered 02/16/22 Ordered By: Yunior Gillette Referrals: Sunni Miguel MD [Primary Care Provider] - Discharge Diet: Usual diet Discharge Activity: Increase activity as tolerated Patient Instructions: Shoulder Pain (ED), Opioid Safety Activity Restrictions/Additional Instructions: Activity as tolerated. Is important to try to use the arm is much as possible for light to normal advance. Drink plenty of water with medication. Follow-up with primary care for further instruction. Return to ER for new concerns. Coding Level of Care Code ED [employer] Vice President for [employer] Fwd Exam Comprehensive
--- NOTE | 2022-02-16 18:14 | XRR_ITS ---
PROCEDURE INFORMATION: Exam: XR Right Shoulder Exam date and time: 02/16/2022 6:53 PM Age: 62 years old Clinical indication: Pain; Shoulder; Right; Additional info: Shoulder pain TECHNIQUE: Imaging protocol: XR Right shoulder. Views: 2 or more views. COMPARISON: CR XR chest 1V portable [id number] 11/18/2021 5:49 PM FINDINGS: Bones/joints: Osseous spurring of acromioclavicular joint. No bone erosion. No fracture. Normal joint space alignment. Soft tissues: Normal. XR/XR shoulder RT min 2V* [id number] IMPRESSION: Negative for acute abnormality.
[2022-02-16] MEDS: ketorolac 30 mg/mL INJ IM (18:27)
[2022-02-16] MEDS: HYDROcodone-acetaminophen 10-325 mg Tablet 1 TAB PO (18:27)
== END 2022-02-16 19:12 | disposition home or self-care (01) ==
PROVIDERS: Emergency Provider Nurse Practitioner Family; PCP Family Medicine
DX: M25.511 Pain in right shoulder (principal)
CPT/HCPCS: 73030; 96372; 99283; J1885

== ENCOUNTER → 2022-03-09 08:59 | Outpatient (BNVA) | payer MEDICARE, MEDICAID, SELFPAY | PROVIDERS: PCP Family Medicine; Visit Provider Orthopaedic Surgery | DX: M17.11 Unilateral primary osteoarthritis, right knee (principal) | CPT/HCPCS: 99213 ==

== ENCOUNTER 2022-04-26 10:00 | Observation (INO) | payer MEDICARE, MEDICAID, SELFPAY ==
[2022-04-20 09:53] VITALS: BMI 36.5
[2022-04-20 10:20] LABS: Basophils # 0.1 10^3/uL (0.0-0.1); Basophils % 0.7 %; Eosinophils # 0.2 10^3/uL (0.0-0.8); Eosinophils % 2.3 %; Hematocrit 50.6 % (37.0-47.0); Hemoglobin 16.5 g/dL (11.5-15.3); Lymphocytes # 3.4 10^3/uL (0.8-4.8); Lymphocytes % 32.1 %; Mean Corpuscular HGB Conc 32.6 g/dL (30.0-36.0); Mean Corpuscular Hemoglobin 29.1 pg (28.0-34.0); Mean Corpuscular Volume 89.2 fl (81-99); Monocytes # 0.7 10^3/uL (0.2-0.9); Neutrophils # 5.99 10^3/uL (1.8-7.7); Nucleated Red Blood Cells % 0 %; Platelet Count 266 10^3/cmm (130-400); Red Blood Count 5.67 10^6/uL (4.1-5.3); Red Cell Distribution Width 13.8 % (12.1-15.1); White Blood Count 10.5 10^3/uL (4.0-10.0)
--- NOTE | 2022-04-20 10:27 | P.ANESASSM_ITS ---
Pre-Anesthetic Assessment Height/Weight: Height 1.73 m Weight 108.862 kg Preop Diagnosis: Osteoarthritis Left knee Operation Date: 04/26/22 07:00 Proposed Procedures p Right total knee arthroplasty:25693,M17.11(Right) - Johny Walker MD Familial anesthetic complications: none Was Beta Jaxon taken within 24 hours: N/A Was Clonidine taken within 24 hours: N/A Social Tobacco and No alcohol Exam alert, oriented x 3 and regular rate & rhythm Airway Submandibular: within normal limits Cervical ROM: within normal limits Mallampati: Class II Dentition: false Pulmonary Chronic Obstructive Pulmonary Disease CV/HEM Hypertension GI Gastroesophageal Reflux Disease Metabolic Diabetes Mellitus and Morbid Obesity [facility] Osteoarthritis/DJD Neuropsych Transient Ischemic Attack Anesthetic Plan ASA status: 3 Anesthesia: Regional (specify below) (SAB with adductor blk) Medications/Allergies Home Medications Medication Instructions Recorded Confirmed Last Taken Type albuterol sulfate 2.5 mg (3 mL) INHALATION QID PRN 07/06/21 04/20/22 01/17/22 Rx #180 ml albuterol sulfate 90 mcg/actuation 1 inh INHALATION QID PRN #6.7 g 07/06/21 04/20/22 01/17/22 Rx aerosol inhaler (Ventolin HFA) aspirin 81 mg tablet,delayed 81 mg PO DAILY 07/06/21 04/20/22 01/11/22 History release (Adult Aspirin Regimen) nebulizer mask and tubing supplies #1 ea 07/30/21 03/09/22 Unknown Rx fluticasone propionate 115 See Rx Instructions .ROUTE 12/24/21 04/20/22 01/17/22 Rx mcg-salmeterol 21 mcg/actuation .COMPLEX #12 g HFA inhaler (Advair HFA) esomeprazole magnesium 40 mg 40 mg PO BID #180 cap 03/02/22 04/20/22 Unknown Rx capsule,delayed release (Nexium) ibuprofen 800 mg tablet 800 mg PO TID PRN #270 tab 03/02/22 04/20/22 Unknown Rx insulin detemir U-100 100 unit/mL 30 unit (0.3 mL) SUBCUT Q12H 30 03/24/22 04/20/22 Unknown Rx (3 mL) subcutaneous pen (Levemir Days #18 ml FlexTouch U-100 Insulin) insulin aspart U-100 100 unit/mL See Rx Instructions .ROUTE 03/25/22 04/20/22 Unknown Rx (3 mL) subcutaneous pen (Novolog .COMPLEX #45 ml Flexpen U-100 Insulin aspart) Diabetic shoes and inserts #1 ea 03/31/22 Unknown Rx acetaminophen 650 mg 1,500 mg PO BID PRN 04/20/22 04/20/22 Unknown History tablet,extended release amitriptyline 50 mg tablet 150 mg PO DAILY 04/20/22 04/20/22 Unknown History gabapentin 800 mg tablet 800 mg PO QID 04/20/22 04/20/22 Unknown History Allergies Allergy/AdvReac Type Severity Reaction Status Date / Time tramadol Allergy ADR-Agitate Verified 04/20/22 09:38 d skin glue Allergy ALGY-Bliste Uncoded 04/20/22 09:39 r [facility] Anesthesia Medical History COPD (chronic obstructive pulmonary disease) COPD (chronic obstructive pulmonary disease) Depression History of cervical cancer Hypertension Morbid obesity Type 2 diabetes mellitus Surgical History History of knee surgery scope and shot in the right knee History of partial hysterectomy Family History Sister Diabetes Cancer Thyroid cancer Father Cancer mouth cancer Mother Cancer Pancreatic cancer Denies family history of Hyperlipidemia Chronic kidney disease (CKD) Hypertension Thyroid disease Stroke Social History Smoking and tobacco status: current every day smoker Alcohol intake: never Household members: spouse Housing: House Data Anesthesia : 04/20/22 10:10 04/20/22 10:10 Short CBC 04/20/22 Range/Units 10:10 WBC 10.5 H (4.0-10.0) 10^3/uL Hgb 16.5 H (11.5-15.3) g/dL Hct 50.6 H (37.0-47.0) % MCV 89.2 (81-99) fl Plt Count 266 (130-400) 10^3/cmm Neut % (Auto) 57.0 % Neut # (Auto) 5.99 (1.8-7.7) 10^3/uL Cardiac Studies: Echocardiogram Ultrasound 11/03/19
[2022-04-20 10:48] LABS: Anion Gap 16.5 (5-19); Blood Urea Nitrogen 16 mg/dL (8-23); Calcium 9.6 mg/dL (8.5-10.5); Carbon Dioxide 26 mmol/L (22-29); Chloride 98 mmol/L (98-107); Glomerular Filtration Rate 85.4 mL/min (90-130); Glucose 183 mg/dL (65-115); Osmolality Calculated 288 mOsm/kg (285-295); Potassium 4.5 mmol/L (3.5-5.1); Sodium 136 mmol/L (136-145)
[2022-04-26] VITALS (15 sets, daily range): BP systolic 103–156; BP diastolic 54–108; PULSE 80–102; RESP 16–18; TEMP 36.4–37; O2SAT 90–98
--- NOTE | 2022-04-26 05:57 | P.ANESUD_ITS ---
Pre-Anesthetic Update Pre-Anesthetic Assessment: Date of Surgery/Procedure: 04/26/22 Preop Jaclyn gnosis: OsteoarthritisRight knee Proposed Procedure: Operation Date: 04/26/22 07:00 Proposed Procedures p Right total knee arthroplasty:50567,M17.11(Right) - Johny Walker MD Any changes to Pre-Anesthetic Assessment?: Yes (Wheezing today on expiration) Exam: Pre-Anes Outpt Exam: alert, oriented x 3 and regular rate & rhythm Other Pertinent Information: Other Pertinent Information: Plan pre op albuterol treatment NPO violation, plan hold surgery until 6 hours after coffee with milk last drank Cardiac Studies: Echocardiogram Ultrasound 11/03/19
[2022-04-26] MEDS: sodium chloride 0.9% 1,000 ML 30 ML IV (06:16)
[2022-04-26] MEDS: acetaminophen 500 mg Tablet 1000 MG PO (06:17)
[2022-04-26] MEDS: oxyCODONE 20 mg ER (12 HR) Tablet PO ×2 (06:17→06:18)
[2022-04-26 06:19] LABS: Glucose Point of Care 247 mg/dL (70-110)
[2022-04-26 06:19] LABS: Glucose Point of Care 231 mg/dL (70-110)
[2022-04-26] MEDS: gabapentin 300 mg Capsule PO (06:19)
[2022-04-26] MEDS: CELEcoxib 200 mg Capsule 400 MG PO (06:19)
[2022-04-26] MEDS: fentaNYL 50 mcg/mL INJ 2mL 100 MCG IVP (06:46)
[2022-04-26] MEDS: ipratropium 0.5 mg/2.5 mL Neb INHALATION (07:09)
[2022-04-26] MEDS: ceFAZolin 2,000 MG in sodium chloride 0.9% (plus) 50 ML 100 MG IV (07:23)
--- NOTE | 2022-04-26 07:23 | W.PM.OPSFHP ---
Same Day Surgery H&P Indication for Procedure/HPI DATE OF PROCEDURE: April 26, 2022 CHIEF COMPLAINT/INDICATIONFOR SURGICAL PROCEDURE: Osteoarthritis right knee here for right total knee Bandar PREOP DIAGNOSIS: OsteoarthritisRight knee PLANNED PROCEDURE: Operation Date: 04/26/22 07:00 Proposed Procedures p Right total knee arthroplasty:18364,M17.11(Right) - Johny Walker MD 62-year-old female with osteoarthritis of the right knee. Unable to ambulate more than 100 yards due to discomfort. Had previous left total knee arthroplasty in January of this year and did well with that. Pain unsuccessfully controlled with anti-inflammatories. Here for elective right total knee arthroplasty Medications/Allergies* Home Medications Medication Instructions Recorded Confirmed Type aspirin 81 mg tablet,delayed 81 mg PO DAILY 07/06/21 04/26/22 History release (Adult Aspirin Regimen) acetaminophen 650 mg 1,500 mg PO BID PRN 04/20/22 04/20/22 History tablet,extended release amitriptyline 50 mg tablet 150 mg PO DAILY 04/20/22 04/26/22 History fluticasone propionate 115 See Rx Instructions .ROUTE 04/26/22 04/26/22 History mcg-salmeterol 21 mcg/actuation .COMPLEX PRN HFA inhaler (Advair HFA) Allergies/Adverse Reactions Allergy/AdvReac Type Severity Reaction Status Date / Time tramadol Allergy ADR-Agitate Verified 04/20/22 09:38 d skin glue Allergy ALGY-Bliste Uncoded 04/20/22 09:39 r Current Medications: Generic Name Dose Route Start Last Admin Trade Name Freq PRN Reason Stop Dose Admin Sodium Chloride 1,000 mls @ 30 mls/hr 04/26/22 05:30 04/26/22 06:16 Sodium Chloride 0.9% IV 04/27/22 05:29 30 mls/hr .Q24H FRANK Administration Pertinent History/Comorbid Conditions* Medical History (Updated 02/24/22 @ 00:01 by ) COPD (chronic obstructive pulmonary disease) COPD (chronic obstructive pulmonary disease) Depression History of cervical cancer Hypertension Morbid obesity Type 2 diabetes mellitus Surgical History (Updated 01/18/22 @ 16:48 by Johny Walker MD) History of knee surgery scope and shot in the right knee History of partial hysterectomy Family History (Updated 06/26/21 @ 07:51 by Jerilyn Calderon LPN) Diabetes Sister Cancer Sister Thyroid cancer Father mouth cancer Mother Pancreatic cancer Denies family history of Hyperlipidemia Chronic kidney disease (CKD) Hypertension Thyroid disease Stroke Social History Smoking and tobacco status: current every day smoker Alcohol intake: never Household members: spouse Housing: House Pertinent Exam Findings alert, oriented x 3, clear to auscultation bilaterally, regular rate & rhythm and operative site marked Recommendations Surgery/Procedure today Other Plans: Proceed with right total knee arthroplasty. Coding Level of Care Code Acute Social Work Coordinator for Isa Joy
[2022-04-26] MEDS: EPINEPHrine 1 mg/mL INJ XX (08:17)
[2022-04-26] MEDS: ketorolac 30 mg/mL INJ XX (08:18)
[2022-04-26] MEDS: tranexamic acid 1,000 mg/10mL SDV 1000 MG XX (08:18)
[2022-04-26] MEDS: tranexamic acid 1,000 mg/10mL SDV 1000 MG IV (08:19)
[2022-04-26] MEDS: tobramycin 40 mg/mL SDV 2mL 160 MG IRRIGATION (08:20)
[2022-04-26] MEDS: sodium chloride 0.9% 100 mL Bag XX (08:20)
--- NOTE | 2022-04-26 08:22 | ANES.PROC ---
Anesthesia Procedures Procedure/Date: 04/26/22 Nerve Block ^: Nerve Block 1: Main Anesthesia: spinal anesthesia block Time Out Performed: Yes Consent: requested by attending/covering physician, from patient, risks and benefits reviewed and patient agrees to proceed Nerve block location: adductor canal Anesthesia monitors applied: pulse oximetry, EKG and BP cuff Nerve block position: semi sitting Anesthetic Used: ropivicaine 0.5% Amount of anesthesia used (mL): 20 Ultrasound used to: recognize landmarks and visualize and ID femerol nerve Nerve Stimulator Used?: No Interscalene/Femoral BLK: 4 stimuplex 21 g needle used for position and inplane approach, visualize local anesthetic spread and no vascular puncture identified Injection: neg aspiration of heme Patient Tolerated Procedure: well Complications: none Additional Comments: After time out sterile prep, using sterile technique, and using real time US guidance for target selection needle was inserted with real time visualization of needle entry and real time visualization of needle advancement toward intended target. Negative aspiration. LA injected incrementally with negative aspiration every 5 cc and real time US visualization of LA spread throughout procedure. Tolerated well. Image(s) saved.
[2022-04-26 09:42] LABS: Glucose Point of Care 211 mg/dL (70-110)
--- NOTE | 2022-04-26 09:42 | XR_ITS ---
WS: [id number] Exam: XR knee RT 1-2V [id number] Date/Time of Exam: 04/26/2022 9:47 AM Reason For Exam: Right Total Knee arthroplasty A total knee prosthesis has been placed and appears to be in satisfactory position. Postoperative will nges in the adjacent soft tissues. XR/XR knee RT 1-2V [id number] IMPRESSION: 1. Total knee replacement in excellent position.
--- NOTE | 2022-04-26 09:43 | PM.OP ---
Operative Report Date of procedure: April 26, 2022 Pre-op diagnosis: Preop Diagnosis OsteoarthritisRight knee Post-op diagnosis: same Post-op diagnosis: Same Post-op findings: Same Procedure done: Right total knee arthroplasty Implants: [place] total knee arthroplasty components were used includin) Size 4 triathalon cruciate retaining femoral component 2) Size 4 Tritanium tibial component 3) 35 mm /11 mm thickness Tritanium asymetric patella 4) Size 4/11 mm thickness CR tibial bearing insert Pathology: none sent Surgeon: Johny Walker Anesthesia: Nerve Block (Spinal, adductor canal block) Estimated blood loss (mL): 50 Findings: Patient had eburnated bone over the medial femoral condyle medial tibial plateau patella and trochlea Condition: stable Disposition: PACU Procedure: The patient was taken to the operating room. Patient was given 1 g of tranexamic acid . The above anesthesia provided by the anesthesia service. A timeout was performed. The patient was prepped and draped in the usual fashion with the lower extremity exposed. A anterior incision was made, midline, from a point proximal to the patella to the distal tibial tubercle. The knee was entered through a medial parapatellar approach. The patella could be displaced laterally and the knee flexed. The patellar fat pad was resected to provide better visibility. Retractors were placed medially and laterally adjacent to the tibial plateau. The femoral canal was drilled in line with the longitudinal axis of the femur. Intramedullary femoral guide for used to make a distal femoral cut in 5 degrees of valgus, resecting 8 mm from the more prominent condyle. Next the extra medullary tibial guide was placed in alignment with the longitudinal axis of the tibia. The cutting guides were set to remove just over 9 mm from the high tibial plateau. The proximal tibia was then cut. The femoral measuring guide was then placed over the distal femur. Rotation was verified checking the relationship of the guide to the condyle and the trochlear groove. The femur was measured and cut for the desired femoral component. The desired tibial baseplate was then chosen. A trial reduction with the femur tibial baseplate and polyethylene was done, assuring that the knee was stable throughout full motion. Ligament balancing nothing more than released the deep medial collateral ligament.The tibia was prepared for the tibial baseplate. Patellar thickness was then measured. The patella was cut removing articular cartilage and prepared for appropriate size patellar button. surfaces were cleaned with a gentamicin solution. The femur tibia and patella were then press-fit into place. The posterior capsule and collateral ligaments were then injected with a solution of 100 mL of 0.2% ropivacaine, 1 mL of a 1:1000 epinephrine solution, 30 mg of Toradol, and 1 g of tranexamic acid. Final polyethylene component was then snapped into place into the tibia. The extensor retinaculum was closed with a running 1 Stratafix interrupted 1 Ethibond. The subcutaneous tissues were closed with 2-0 Vicryl and the skin was closed with a running 4-0 Stratafix. The wound was covered with a Dermabond Prineo dressing. It was covered with 4xrs and a compressive Tubigauze was applied. The patient was taken to recovery room in stable condition.
[2022-04-26] MEDS: insulin regular-human 100 units/1 mL 6 UNIT IVP (09:53)
[2022-04-26] MEDS: sodium chloride 0.9% 1,000 ML 100 ML IV (11:31)
[2022-04-26] MEDS: insulin lispro 100 unit/1 mL SUBCUT (12:38)
--- NOTE | 2022-04-26 12:55 | ANE.PACU2 ---
Inpatient post-anesthesia follow up: Airway intact: Yes Vital signs: Temperature 97.6 F Pulse Rate 80 Respiratory Rate 16 Blood Pressure 103/67 Pulse Oximetry 92 Oxygen Delivery Me thod Room Air Oxygen Flow Rate 6 Fraction of Inspir ed Oxygen Hydration adequate: Yes Nausea and vomiting: No Pain level: 1 Mental status: Baseline
[2022-04-26 13:11] LABS: Glucose Point of Care 201 mg/dL (70-110)
--- NOTE | 2022-04-26 13:16 | P.DS_ITS ---
Discharge Providers Date of Admission: 04/26/22 10:00 Date of Discharge: April 26, 2022 Attending Provider at Admission: Johny Anderson MD Attending Provider at Discharge: Johny Anderson MD Primary Care Provider: Sunni Miguel MD Diagnoses at Discharge Discharge Diagnosis (1) Status post right knee replacement: Status: Acute (2) Osteoarthritis of right knee: Status: Resolved (3) COPD (chronic obstructive pulmonary disease): Status: Acute (4) Type 2 diabetes mellitus: Status: Acute Hospital Course Hospital Course The patient tolerated surgery well. They remained hemodynamically stable. They was begun on aspirin and foot pumps for DVT prophylaxis. The patient was mobilized with therapy beginning the day of surgery and by that afternoon she was independent with the walker. As the pain was adequately controlled and they were fully mobile they were discharged home. Physical Exam Narrative: On the day of discharge the knee incision was clean. They had no drainage. There is minimal swelling in the thigh and knee and the calf. No distal neurovascular deficits were noted Discharge Data Studies Completed and Pending Completed Studies During Hospitalization Category Date Time Status XR knee RT 1-2V [id number] Routine Exams 04/26/22 09:42 Completed Pending at discharge Category Date Time Status Hemoglobin AM LABS Lab 04/27/22 04:00 Ordered Radiology Impressions Knee X-Ray 04/26/22 09:42 IMPRESSION: 1. Total knee replacement in excellent position. Laboratory Results WBC 10.5 10^3/uL (4.0-10.0) H 04/20/22 10:10 RBC 5.67 10^6/uL (4.1-5.3) H 04/20/22 10:10 Hgb 16.5 g/dL (11.5-15.3) H 04/20/22 10:10 Hct 50.6 % (37.0-47.0) H 04/20/22 10:10 MCV 89.2 fl (81-99) 04/20/22 10:10 MCH 29.1 pg (28.0-34.0) 04/20/22 10:10 MCHC 32.6 g/dL (30.0-36.0) 04/20/22 10:10 RDW 13.8 % (12.1-15.1) 04/20/22 10:10 Plt Count 266 10^3/cmm (130-400) 04/20/22 10:10 MPV 11.0 fL (7.4-10.4) H 04/20/22 10:10 Neut % (Auto) 57.0 % 04/20/22 10:10 Lymph % (Auto) 32.1 % 04/20/22 10:10 [place] % (Auto) 7.0 % 04/20/22 10:10 Eos % (Auto) 2.3 % 04/20/22 10:10 Baso % (Auto) 0.7 % 04/20/22 10:10 Neut # (Auto) 5.99 10^3/uL (1.8-7.7) 04/20/22 10:10 Lymph # (Auto) 3.4 10^3/uL (0.8-4.8) 04/20/22 10:10 [place] # (Auto) 0.7 10^3/uL (0.2-0.9) 04/20/22 10:10 Eos # (Auto) 0.2 10^3/uL (0.0-0.8) 04/20/22 10:10 Baso # (Auto) 0.1 10^3/uL (0.0-0.1) 04/20/22 10:10 Nucleated RBC % (auto) 0 % 04/20/22 10:10 Nucleated RBCs # 0.0 /100WBC 04/20/22 10:10 Sodium 136 mmol/L (136-145) 04/20/22 10:10 Potassium 4.5 mmol/L (3.5-5.1) 04/20/22 10:10 Chloride 98 mmol/L (98-107) 04/20/22 10:10 Carbon Dioxide 26 mmol/L (22-29) 04/20/22 10:10 Anion Gap 16.5 (5-19) 04/20/22 10:10 BUN 16 mg/dL (8-23) 04/20/22 10:10 Creatinine 0.7 mg/dL (0.5-0.9) 04/20/22 10:10 GFR Calculation 85.4 mL/min (90-130) L 04/20/22 10:10 Glucose 183 mg/dL (65-115) H 04/20/22 10:10 POC Glucose 201 mg/dL (70-110) H 04/26/22 11:59 Calculated Osmolality 288 mOsm/kg (285-295) 04/20/22 10:10 Calcium 9.6 mg/dL (8.5-10.5) 04/20/22 10:10 Vitals Last Vital Signs Temp 97.6 F 04/26/22 10:31 Pulse 86 04/26/22 13:09 Resp 18 04/26/22 13:09 BP 123/71 04/26/22 13:09 Pulse Ox 96 04/26/22 13:09 Discharge Plan Discharge Patient Disposition: Home Condition: Stable Prescriptions: New oxycodone 5 mg Tablet 5 mg PO Q4H PRN (Reason: Moderate Pain) 7 Days Qty: 40 0RF celecoxib 200 mg Capsule 200 mg PO Q12H 14 Days Qty: 28 0RF gabapentin 300 mg Capsule 300 mg PO BID 7 Days Qty: 14 0RF Continued aspirin [Adult Aspirin Regimen] 81 mg tablet,delayed release (DR/EC) 81 mg PO DAILY 0RF albuterol sulfate [Ventolin HFA] 90 mcg/actuation HFA aerosol inhaler 1 inh inhalation QID PRN (Reason: shortness of breath or wheezing) Qty: 6.7 3RF albuterol sulfate 2.5 mg /3 mL (0.083 %) solution for nebulization 2.5 mg inhalation QID PRN (Reason: shortness of breath or wheezing) Qty: 180 3RF (DME) nebulizer mask and tubing supplies See Rx Instructions .Route .MEDSUPPLY Qty: 1 0RF Rx Instructions: As directed Nexium 40 mg capsule,delayed release(DR/EC) 40 mg PO BID Qty: 180 1RF Levemir FlexTouch U-100 Insuln 100 unit/mL (3 mL) insulin pen 30 unit SUBCUT Q12H 30 Days Qty: 18 1RF Rx Instructions: please run through 340b Novolog Flexpen U-100 Insulin 100 unit/mL (3 mL) insulin pen See Rx Instructions .ROUTE .COMPLEX Qty: 45 0RF Dose Instruction: USE DIRECTED PER sliding scale THREE TIMES DAILY UP TO 54 units DAILY Rx Instructions: USE DIRECTED PER sliding scale THREE TIMES DAILY UP TO 54 units DAILY (DME) Diabetic shoes and inserts See Rx Instructions .Route .MEDSUPPLY Qty: 1 0RF Rx Instructions: As directed amitriptyline 50 mg tablet 150 mg PO DAILY 0RF Tylenol Arthritis 650 mg Tablet Extended Release 1,500 mg PO BID PRN (Reason: Pain) 0RF Advair HFA 115-21 mcg/actuation HFA aerosol inhaler See Rx Instructions .ROUTE .COMPLEX PRN (Reason: Wheezing) 0RF Rx Instructions: INHALE TWO PUFFS BY MOUTH EVERY TWELVE HOURS Discontinued ibuprofen 800 mg tablet 800 mg PO TID PRN (Reason: pain) Qty: 270 1RF Discharge Orders: Discharge Order (Routine); Ordered 04/26/22 Ordered By: Johny Anderson Referrals: Gareth Carlisle FNP [Physician Apprentice Photographer] - 04/30/22 8:00 am Discharge Diet: Advance as tolerated Discharge Activity: Limit activity as instructed Patient Instructions: Opioid Safety Activity Restrictions/Additional Instructions: Okay to shower Keep Tubigauze sleeve in place for swelling. Okay to remove for hygiene. Apply FirstIce up to 20 min/hr for pain and swelling Take Celebrex twice a day for the next 15 days for pain , discontinue ibuprofen until Celebrex complete Take Neurontin twice a day for 7 days. take oxycodone for breakthrough pain. Exercises per physical therapy. May weight-bear as tolerated on total knee arthroplasty IF HAVE ANY PROBLEMS OR QUESTIONS CALL [facility] AIDE AT AND ASK TO HAVE DR. ANDERSON PAGED. Discharge Attestations Time Spent in Discharge Care*: other Quality Metrics Clinical Quality Measures [ No reported AMI, CVA or VTE this stay] Coding Level of Care Code Acute Chg FW DC note Diagnoses Status post right knee replacement Z96.651 Osteoarthritis of right knee M17.11 COPD (chronic obstructive pulmonary disease) J44.9 Type 2 diabetes mellitus E11.9
[2022-04-26] MEDS: oxyCODONE 5 mg IR Tab/Cap PO (14:09)
--- NOTE | 2022-04-26 15:23 | PC.PT ---
Pt was attempted to be seen. It was noticed that the patient was in discharge status and not in a room. Pt was not seen by PT due to being discharged already before we could get in to see her at 15:15.
--- NOTE | 2022-04-27 08:25 | PC.OT ---
PATIENT DISCHARGED BEFORE EVALUATION COULD BE COMPLETED
== END 2022-04-26 14:55 | disposition home health service (06) ==
LOC: MEDSURG 10:05
PROVIDERS: Admitting Provider Orthopaedic Surgery; PCP Family Medicine; Visit Provider Orthopaedic Surgery
PROC: (CPT 27447; principal; 2022-04-26 07:00)
DX: M17.11 Unilateral primary osteoarthritis, right knee (principal); J44.9 Chronic obstructive pulmonary disease, unspecified; E11.9 Type 2 diabetes mellitus without complications; I10 Essential (primary) hypertension; K21.9 Gastro-esophageal reflux disease without esophagitis; E66.01 Morbid (severe) obesity due to excess calories; Z68.36 Body mass index [BMI] 36.0-36.9, adult; Z86.73 Personal history of transient ischemic attack (TIA), and cerebral infarction without residual deficits; Z79.4 Long term (current) use of insulin; Z79.82 Long term (current) use of aspirin; F32.9 Major depressive disorder, single episode, unspecified; Z85.41 Personal history of malignant neoplasm of cervix uteri; F17.210 Nicotine dependence, cigarettes, uncomplicated
CPT/HCPCS: 27447; 36415; 36416; 73560; 80048; 82962; 85025; C1776; G0378; J0171; J1815; J1885; J2370; J2704; J2795; J3010; J3260; J7030; J7644

== ENCOUNTER 2022-05-04 10:54 | Day surgery (SDC) | payer MEDICARE, MEDICAID, SELFPAY ==
[2022-05-04] VITALS (26 sets, daily range): BP systolic 145–195; BP diastolic 59–111; PULSE 85–96; RESP 12–22; TEMP 36.2–37.3; O2SAT 90–99; BMI 36.5
--- NOTE | 2022-05-04 11:32 | XRR_ITS ---
PROCEDURE INFORMATION: Exam: XR Right Knee Exam date and time: 05/04/2022 11:37 AM Age: 62 years old Clinical indication: Injury or trauma; Blunt trauma; Right; Injury details: --dizziness, fall today, recent surgery and stiches opened up; Prior surgery; Surgery date: 3-7 days post-operative; Surgery type: RT knee 1 week ago; Additional info: R knee fall TECHNIQUE: Imaging protocol: Radiologic exam of the Right knee. Views: 1 or 2 views. COMPARISON: CR XR knee RT 1-2V [id number] 04/26/2022 9:50 AM FINDINGS: Bones/joints: Metallic knee replacement is present in good position. A linear lucency is present in the distal shaft of the femur on the AP view. This finding does not appear to represent a fracture but was not present on prior examination and may represent positional artifact. The bones are otherwise unremarkable Soft tissues: Normal. XR/XR knee RT 1-2V 41342 IMPRESSION: 1. Metallic knee replacement in good position. 2. Nonspecific bone lucency distal femur possible artifact
--- NOTE | 2022-05-04 11:42 | ECG_ITS ---
[facility] Test Date: 2022-05-04 Pat Name: Sandra Jarquin Department: Room: Gender: Female Attacher: : [id number] Requested By: Dimas Zaldivar Order Number: [id number] Rhys MD: Madelyn Gifford M.D. Measurements Intervals [place] Rate: 94 P: 69 UT: 167 QRS: 40 QRSD: 93 T: 86 QT: 359 QTc: 450 Interpretive Statements SINUS RHYTHM LOW QRS VOLTAGE IN PRECORDIAL LEADS [QRS DEFLECTION < 1.0 mV IN CHEST LEADS] MINIMAL ST DEPRESSION [0.025+ mV ST DEPRESSION] Compared to ECG 11/18/2021 18:19:54 ST (T wave) deviation now present Electronically Signed On 05-04-2022 21:11:31 CDT by Madelyn Gifford M.D. [id number]
--- NOTE | 2022-05-04 11:53 | ED_ITS ---
HPI - General Adult General: Chief complaint: Extremity Injury, Lower Stated complaint: DIZZY, FALL, OPEN WOUND R KNEE Time Seen by Provider: 05/04/22 11:32 History of Present Illness: Patient is a 62-year-old female with a recent right knee total replacement on 04/[address] Walker presenting to the emergency room with concerns of knee dehiscence and lightheadedness. Patient was walking home around 10 AM this morning when she felt lightheaded. Patient then fell onto her right knee dehiscing surgical site. Patient then called EMS was brought to the emergency room. Patient has a gapping wound. Patient is up-to-date with tetanus. Patient denies any associated chest pain, shortness breath, palpitation, focal neurological weakness, nausea/vomiting, diarrhea melena/hematochezia today. Last p.o. intake was 6 AM this morning. Onset: 10am Duration:ongoing Location:home Severity:moderate Associated symptoms: Deny chest pain, dyspnea, nausea, palpitations or vomiting Review of Systems Const: Denies: fever(s) or chills Eyes: Denies: change in vision ENMT: Denies: mouth pain Card: Denies: chest pain or palpitations Resp: Denies: dyspnea or non-productive cough GI: Denies: abdominal pain, nausea, vomiting or diarrhea : Denies: dysuria Musc: Reports: extremity pain (+R knee pain and wound dehiscence) Skin/Breast: Reports: new lesions (+R knee surgery dehiscence) Neuro: Reports: other (+light-headedness); Denies: weakness in extremities Psych: Reports: other (Normal mood) Gt/Lymph: Denies: easy bruising PFSH ED PFSH: Medical History COPD (chronic obstructive pulmonary disease) COPD (chronic obstructive pulmonary disease) Depression History of cervical cancer Hypertension Morbid obesity Type 2 diabetes mellitus Surgical History History of knee surgery scope and shot in the right knee History of partial hysterectomy Family History Sister Diabetes Cancer Thyroid cancer Father Cancer mouth cancer Mother Cancer Pancreatic cancer Denies family history of Hyperlipidemia Chronic kidney disease (CKD) Hypertension Thyroid disease Stroke Social History Smoking and tobacco status: current every day smoker Alcohol intake: never Household members: spouse Housing: House Physical Exam Const: COMMON NORMALS: alert HENMT: COMMON NORMALS: atraumatic HEAD & SCALP: atraumatic MOUTH: moist mucous membranes not abnormal Eye: COMMON NORMALS: EOMs intact bilaterally and conjunctivae normal CONJUNCTIVA: Yes conjunctivae normal Neck/C-Spine: COMMON NORMALS: full ROM and supple Resp: COMMON NORMALS: normal respiratory effort and clear to auscultation guillermo aterally AUSCULTATION: clear to auscultation bilaterally Cardio: COMMON NORMALS: regular rate RATE: regular rate GI: COMMON NORMALS: Soft to palpation and non-tender PALPATION: Yes Soft to palpation Extremity: NARRATIVE EXTREMITY EXAM: + Large gaping wound with extension into the prostatic joint parts Neuro: SENSORIUM/ORIENTATION: Yes alert MOTOR EXAM: No Abnormal motor strength present and Other motor observations present (no focal motor deficits) Psych: COMMON NORMALS: speech normal SPEECH: Yes normal speech MOOD & AFFECT: Yes euthymic mood Skin: NARRATIVE SKIN EXAM: +large gaping wound measuring 20cm along the joint with extension into the prosthetic parts Course Vital Signs: Vital signs: Vital Signs Temperature 98 F 05/04/22 15:55 Pulse Rate 90 05/04/22 16:10 Respiratory Rate 16 05/04/22 16:10 Blood Pressure 145/95 05/04/22 16:10 Pulse Oximetry 94 05/04/22 16:10 Oxygen Delivery Me thod 05/04/22 16:10 Oxygen Flow Rate 2 05/04/22 15:25 [facility] - General Adult Medical Decision Making Patient is a 62-year-old female with a history of recent right total knee replacement by Dr. Walker on 04/26/2020 2 presenting to the emergency room with wound dehiscence. On physical exam, patient has significant wound dehiscence with exposure of prosthetic parts. Neurovascular exam is intact. Case was discussed with Dr. Walker will take patient to the OR for washout. Patient received cefazolin and Tdap. X-ray of the knee performed. Patient received Dilaudid for pain control. Disposition: OR Lab Data : 05/04/22 12:35 05/04/22 12:35 Radiology Impressions Knee X-Ray 05/04/22 11:32 IMPRESSION: 1. Metallic knee replacement in good position. 2. Nonspecific bone lucency distal femur possible artifact Laboratory Results WBC 9.5 10^3/uL (4.0-10.0) 05/04/22 12:35 RBC 4.87 10^6/uL (4.1-5.3) 05/04/22 12:35 Hgb 14.1 g/dL (11.5-15.3) 05/04/22 12:35 Hct 43.6 % (37.0-47.0) 05/04/22 12:35 MCV 89.5 fl (81-99) 05/04/22 12:35 MCH 29.0 pg (28.0-34.0) 05/04/22 12:35 MCHC 32.3 g/dL (30.0-36.0) 05/04/22 12:35 RDW 14.4 % (12.1-15.1) 05/04/22 12:35 Plt Count 347 10^3/cmm (130-400) 05/04/22 12:35 MPV 10.8 fL (7.4-10.4) H 05/04/22 12:35 Neut % (Auto) 54.6 % 05/04/22 12:35 Lymph % (Auto) 30.7 % 05/04/22 12:35 [place] % (Auto) 8.0 % 05/04/22 12:35 Eos % (Auto) 3.8 % 05/04/22 12:35 Baso % (Auto) 0.5 % 05/04/22 12:35 Neut # (Auto) 5.15 10^3/uL (1.8-7.7) 05/04/22 12:35 Lymph # (Auto) 2.9 10^3/uL (0.8-4.8) 05/04/22 12:35 [place] # (Auto) 0.8 10^3/uL (0.2-0.9) 05/04/22 12:35 Eos # (Auto) 0.4 10^3/uL (0.0-0.8) 05/04/22 12:35 Baso # (Auto) 0.1 10^3/uL (0.0-0.1) 05/04/22 12:35 Nucleated RBC % (auto) 0.3 % 05/04/22 12:35 Nucleated RBCs # 0.0 /100WBC 05/04/22 12:35 PT 13.70 SECONDS (12.1-14.9) 05/04/22 12:35 INR 1.02 (0.8-1.2) 05/04/22 12:35 APTT 32.3 SECONDS (23.9-36.7) 05/04/22 12:35 Sodium 141 mmol/L (136-145) 05/04/22 12:35 Potassium 4.3 mmol/L (3.5-5.1) 05/04/22 12:35 Chloride 100 mmol/L (98-107) 05/04/22 12:35 Carbon Dioxide 27 mmol/L (22-29) 05/04/22 12:35 Anion Gap 18.3 (5-19) 05/04/22 12:35 BUN 12 mg/dL (8-23) 05/04/22 12:35 Creatinine 0.8 mg/dL (0.5-0.9) 05/04/22 12:35 GFR Calculation 73.2 mL/min (90-130) L 05/04/22 12:35 Glucose 240 mg/dL (65-115) H 05/04/22 12:35 POC Glucose 219 mg/dL (70-110) H 05/04/22 12:35 Calculated Osmolality 300 mOsm/kg (285-295) H 05/04/22 12:35 Calcium 9.4 mg/dL (8.5-10.5) 05/04/22 12:35 Troponin T Baseline 19 ng/L (0-10) H 05/04/22 12:35 Imaging Data Other Imaging: Radiologist's impression: [address] [address] XRay Report Signed Patient: Sandra Jarquin Unit #: [id number] : 1960 Age/Sex: 62 / F ADM Date: 05/04/22 Loc: OPS Room/Bed: Attending Dr: Johny Walker MD Ordering Provider/Ordering MD: Dimas Zaldivar MD Date of Service: 05/04/22 Procedure(s): XR knee RT 1-2V 68764 Accession Number(s): [id number] Report Number: [id number] PROCEDURE INFORMATION: Exam: XR Right Knee Exam date and time: 05/04/2022 11:37 AM Age: 62 years old Clinical indication: Injury or trauma; Blunt trauma; Right; Injury details: --dizziness, fall today, recent surgery and stiches opened up; Prior surgery; Surgery date: 3-7 days post-operative; Surgery type: RT knee 1 week ago; Additional info: R knee fall TECHNIQUE: Imaging protocol: Radiologic exam of the Right knee. Views: 1 or 2 views. COMPARISON: CR XR knee RT 1-2V [id number] 04/26/2022 9:50 AM FINDINGS: Bones/joints: Metallic knee replacement is present in good position. A linear lucency is present in the distal shaft of the femur on the AP view. This finding does not appear to represent a fracture but was not present on prior examination and may represent positional artifact. The bones are otherwise unremarkable Soft tissues: Normal. XR/XR knee RT 1-2V 18055 IMPRESSION: 1. Metallic knee replacement in good position. 2. Nonspecific bone lucency distal femur possible artifact ? Dictated By: River Horta Signed By: River Horta Signed Date/Time: 05/04/22 1241 DD/ 1137 Discharge Plan Discharge Patient Disposition: Admitted As Inpatient Clinical Impression: Dehiscence of wound Condition: Stable Coding Level of Care Code ED Process Improvement Specialist for Markieg Fwd Exam Comprehensive
[2022-05-04] MEDS: ceFAZolin 1,000 mg SDV 1000 MG IVP (11:56)
[2022-05-04] MEDS: HYDROmorphone 1 mg/mL INJ 1 mL 0.5 MG IVP ×3 (11:57→15:26)
--- NOTE | 2022-05-04 12:14 | PC.PHAR ---
pt states she takes care of her own medications-pt states she hasnt taken any medications today-rx filled 03/31/22 30d/s for gabapentin 800mg po qid-another rx filled on 04/26/22 7d/s for 300mg bid pt states 300mg didnt work so went back to taking 800mg tabs states she only takes 1600mg at bedtime-pt states she ran out of her norco 10-325mg on sun 05/02/22 rx was filled 04/28/22 7d/s for 1 tab po q4h prn-pt states she has been trying to get a refill on her cyclobenzaprine ext med history shows last filled 03/02/22 30d/s wrote rx today 05/04/22-notes are made in the pharmacy comments
--- NOTE | 2022-05-04 12:27 | P.HP_ITS ---
Same Day Surgery H&P Indication for Procedure/HPI DATE OF PROCEDURE: May 04, 2022 CHIEF COMPLAINT/INDICATIONFOR SURGICAL PROCEDURE: Dehiscence of the right knee incision PREOP DIAGNOSIS: OsteoarthritisRight knee PLANNED PROCEDURE: Operation Date: 05/04/22 13:40 Proposed Procedures p Incision & Drainage Lower Extremity(Right) - Johny Walker MD Sandra is a 62-year-old female known to me after a right total knee arthroplasty performed on 04/26/2022. Her surgery was uneventful. Sandra insisted on discharge the day of surgery. She reportedly was doing fairly well. She is familiar with total knee arthroplasty from the contralateral left side. She describes arising from bed this morning and falling sustaining a direct blow to her anterior knee on the dresser and landing on the floor. She noted the wound opened up and she presented to our emergency room. I am asked to see the patient for management of her wound dehiscence Medications/Allergies* Home Medications Medication Instructions Recorded Confirmed Type aspirin 81 mg tablet,delayed 81 mg PO BEDTIME 07/06/21 05/04/22 History release (Adult Aspirin Regimen) amitriptyline 50 mg tablet 150 mg PO BEDTIME 04/20/22 05/04/22 History fluticasone propionate 115 2 puff inhalation Q12H 04/26/22 05/04/22 History mcg-salmeterol 21 mcg/actuation HFA inhaler (Advair HFA) acetaminophen 650 mg 650 mg PO DAILY 05/04/22 05/04/22 History tablet,extended release (Tylenol Arthritis Pain) esomeprazole magnesium 40 mg 40 mg PO BID PRN Heartburn 05/04/22 05/04/22 History capsule,delayed release (Nexium) gabapentin 800 mg tablet 1,600 mg PO BEDTIME 05/04/22 05/04/22 History ibuprofen 800 mg tablet 800 mg PO TID PRN Pain 05/04/22 05/04/22 History oxycodone 5 mg tablet 5 mg PO Q4H PRN Pain 05/04/22 05/04/22 History Allergies/Adverse Reactions Allergy/AdvReac Type Severity Reaction Status Date / Time tramadol Allergy ADR-Agitate Verified 05/04/22 12:02 d skin glue Allergy ALGY-Bliste Uncoded 04/20/22 09:39 r Pertinent History/Comorbid Conditions* Medical History (Updated 04/26/22 @ 13:17 by Johny Walker MD) COPD (chronic obstructive pulmonary disease) COPD (chronic obstructive pulmonary disease) Depression History of cervical cancer Hypertension Morbid obesity Type 2 diabetes mellitus Surgical History (Updated 04/26/22 @ 13:16 by Johny Walker MD) History of knee surgery scope and shot in the right knee History of partial hysterectomy Family History (Updated 06/26/21 @ 07:51 by Jerilyn Calderon LPN) Diabetes Sister Cancer Sister Thyroid cancer Father mouth cancer Mother Pancreatic cancer Denies family history of Hyperlipidemia Chronic kidney disease (CKD) Hypertension Thyroid disease Stroke Social History Smoking and tobacco status: current every day smoker Alcohol intake: never Household members: spouse Housing: House Pertinent Exam Findings alert, oriented x 3, clear to auscultation bilaterally, regular rate & rhythm and operative site marked HEAD: Normocephalic/atraumatic. NECK: Soft supple nontender. HEART: Normal heart sounds, regular rhythm. CHEST: Clear to auscultation. ABDOMEN: Soft nontender nondistended. Sandra has a dehiscence of her superficial incision of the right knee of at least a 10 cm beginning just proximal to the patella extending distal. On visual inspection her retinaculum appears to be intact. There is swelling of her leg distal to the knee and into her ankle. She has a palpable right dorsalis pedis pulse. Her sensation is intact to light touch She will flex and extend her toes rectal 30 motor deficits Recommendations Surgery/Procedure today Other Plans: Sandra has opened her knee incision but I do not see exposed components and her extensor mechanism appears to be intact. I will get a better idea of this at the time of the surgery. I told her my greatest concern is bacterial seeding of the components. I think this needs to be aggressively treated with wound exploration, irrigation and debridement as soon as possible. I discussed the risk of deep infection which could result in loss of her knee component. I discussed anesthetic risk inherent with surgery. Discussed risk of deep venous thromboses and pulmonary emboli. I discussed the possible need for further procedures. Coding Level of Care Code Acute Graphic Design Intern for Isa Joy
[2022-05-04 12:39] LABS: Glucose Point of Care 219 mg/dL (70-110)
[2022-05-04 12:52] LABS: Basophils # 0.1 10^3/uL (0.0-0.1); Basophils % 0.5 %; Eosinophils # 0.4 10^3/uL (0.0-0.8); Eosinophils % 3.8 %; Hematocrit 43.6 % (37.0-47.0); Hemoglobin 14.1 g/dL (11.5-15.3); Lymphocytes # 2.9 10^3/uL (0.8-4.8); Lymphocytes % 30.7 %; Mean Corpuscular HGB Conc 32.3 g/dL (30.0-36.0); Mean Corpuscular Volume 89.5 fl (81-99); Mean Platelet Volume 10.8 fL (7.4-10.4); Monocytes # 0.8 10^3/uL (0.2-0.9); Neutrophils # 5.15 10^3/uL (1.8-7.7); Neutrophils % 54.6 %; Nucleated Red Blood Cells % 0.3 %; Platelet Count 347 10^3/cmm (130-400); Red Blood Count 4.87 10^6/uL (4.1-5.3); Red Cell Distribution Width 14.4 % (12.1-15.1); White Blood Count 9.5 10^3/uL (4.0-10.0)
[2022-05-04] MEDS: sodium chloride 0.9% 1,000 ML 30 ML IV (13:00)
--- NOTE | 2022-05-04 13:04 | P.ANESASSM_ITS ---
Pre-Anesthetic Assessment Height/Weight: Height 1.73 m Weight 108.862 kg Temp Pulse Resp BP Pulse Ox O2 Del Method 99.1 F 95 18 164/59 94 05/04/22 11:36 05/04/22 11:36 05/04/22 11:57 05/04/22 11:36 05/04/22 11:36 05/04/22 11:36 Preop Diagnosis: Wound dehiscence right knee Operation Date: 05/04/22 13:40 Proposed Procedures p Incision & Drainage Lower Extremity(Right) - Johny Walker MD Familial anesthetic complications: none Was Beta Jaxon taken within 24 hours: N/A Was Clonidine taken within 24 hours: N/A Social Tobacco and No alcohol Exam alert, oriented x 3 and regular rate & rhythm Airway Submandibular: within normal limits Cervical ROM: within normal limits Mallampati: Class II Dentition: false Pulmonary Chronic Obstructive Pulmonary Disease CV/HEM Hypertension Metabolic Diabetes Mellitus and Morbid Obesity Musc/skel Osteoarthritis/DJD Neuropsych Transient Ischemic Attack Anesthetic Plan ASA status: 3 Anesthesia: General Medications/Allergies Home Medications Medication Instructions Recorded Confirmed Last Taken Type albuterol sulfate 2.5 mg (3 mL) inhalation QID PRN 07/06/21 05/04/22 01/17/22 Rx shortness of breath or wheezing #180 mL albuterol sulfate 90 mcg/actuation 1 inh inhalation QID PRN shortness 07/06/21 05/04/22 01/17/22 Rx aerosol inhaler (Ventolin HFA) of breath or wheezing #6.7 grams aspirin 81 mg tablet,delayed 81 mg PO BEDTIME 07/06/21 05/04/22 05/03/22 History release (Adult Aspirin Regimen) nebulizer mask and tubing supplies #1 ea 07/30/21 05/04/22 Unknown Rx insulin detemir U-100 100 unit/mL 30 unit (0.3 mL) SUBCUT Q12H 30 03/24/22 05/04/22 05/03/22 Rx (3 mL) subcutaneous pen (Levemir days #18 mL FlexTouch U-100 Insulin) insulin aspart U-100 100 unit/mL See Rx Instructions .Route 03/25/22 05/04/22 05/03/22 Rx (3 mL) subcutaneous pen (Novolog .COMPLEX #45 mL Flexpen U-100 Insulin aspart) Diabetic shoes and inserts #1 ea 03/31/22 05/04/22 Unknown Rx amitriptyline 50 mg tablet 150 mg PO BEDTIME 04/20/22 05/04/22 05/03/22 History celecoxib 200 mg capsule 200 mg PO Q12H 14 days #28 caps 04/26/22 05/04/22 05/03/22 Rx fluticasone propionate 115 2 puff inhalation Q12H 04/26/22 05/04/22 05/03/22 History mcg-salmeterol 21 mcg/actuation HFA inhaler (Advair HFA) hydrocodone 10 mg-acetaminophen 1 tab PO Q4H PRN pain 7 days #30 04/28/22 0 05/04/22 05/02/22 Rx 325 mg tablet tabs pt states out of med acetaminophen 650 mg 650 mg PO DAILY 05/04/22 05/04/22 Unknown History tablet,extended release (Tylenol Arthritis Pain) cyclobenzaprine 10 mg tablet 10 mg PO TID PRN muscle spasm #60 05/04/22 05/04/22 Unknown Rx tabs esomeprazole magnesium 40 mg 40 mg PO BID PRN Heartburn 05/04/22 05/04/22 Unknown History capsule,delayed release (Nexium) gabapentin 800 mg tablet 1,600 mg PO BEDTIME 05/04/22 05/04/22 05/03/22 History ibuprofen 800 mg tablet 800 mg PO TID PRN Pain 05/04/22 05/04/22 Unknown History oxycodone 5 mg tablet 5 mg PO Q4H PRN Pain 05/04/22 05/04/22 05/03/22 History Allergies Allergy/AdvReac Type Severity Reaction Status Date / Time tramadol Allergy ADR-Agitate Verified 05/04/22 12:02 d skin glue Allergy ALGY-Bliste Uncoded 04/20/22 09:39 r Current Medications Generic Name Dose Route Start Last Admin Trade Name Freq PRN Reason Stop Dose Admin Sodium Chloride 1,000 mls @ 30 mls/hr 05/04/22 13:00 05/04/22 13:00 Sodium Chloride 0.9% IV 05/05/22 12:59 30 mls/hr .Q24H FRANK Administration PFSH Anesthesia Medical History COPD (chronic obstructive pulmonary disease) COPD (chronic obstructive pulmonary disease) Depression History of cervical cancer Hypertension Morbid obesity Type 2 diabetes mellitus Surgical History History of knee surgery scope and shot in the right knee History of partial hysterectomy Family History Sister Diabetes Cancer Thyroid cancer Father Cancer mouth cancer Mother Cancer Pancreatic cancer Denies family history of Hyperlipidemia Chronic kidney disease (CKD) Hypertension Thyroid disease Stroke Social History Smoking and tobacco status: current every day smoker Alcohol intake: never Household members: spouse Housing: House Data Anesthesia : 05/04/22 12:35 05/04/22 12:35 Short CBC 05/04/22 Range/Units 12:35 WBC 9.5 (4.0-10.0) 10^3/uL Hgb 14.1 (11.5-15.3) g/dL Hct 43.6 (37.0-47.0) % MCV 89.5 (81-99) fl Plt Count 347 (130-400) 10^3/cmm Neut % (Auto) 54.6 % Neut # (Auto) 5.15 (1.8-7.7) 10^3/uL Cardiac Studies: Echocardiogram Ultrasound 11/03/19
[2022-05-04 13:18] LABS: Troponin(5th) Baseline 19 ng/L (0-10)
[2022-05-04 13:20] LABS: Anion Gap 18.3 (5-19); Blood Urea Nitrogen 12 mg/dL (8-23); Calcium 9.4 mg/dL (8.5-10.5); Carbon Dioxide 27 mmol/L (22-29); Chloride 100 mmol/L (98-107); Glomerular Filtration Rate 73.2 mL/min (90-130); Glucose 240 mg/dL (65-115); Osmolality Calculated 300 mOsm/kg (285-295); Potassium 4.3 mmol/L (3.5-5.1); Sodium 141 mmol/L (136-145)
[2022-05-04 13:23] LABS: INR 1.02 (0.8-1.2)
[2022-05-04 13:24] LABS: Partial Thromboplastin Time 32.3 SECONDS (23.9-36.7)
--- NOTE | 2022-05-04 13:42 | ECG_ITS ---
[facility] Test Date: 2022-05-04 Pat Name: Sandra Jarquin Department: Room: Gender: Female Director Of Archives: : 1960 Requested By: Dimas Zaldivar Order Number: [id number] Rhys MD: Madelyn Gifford M.D. Measurements Intervals [place] Rate: 94 P: 61 IN: 163 QRS: 31 QRSD: 93 T: 76 QT: 354 QTc: 444 Interpretive Statements SINUS RHYTHM WITH OCCASIONAL VENTRICULAR PREMATURE COMPLEXES LOW QRS VOLTAGE IN PRECORDIAL LEADS [QRS DEFLECTION < 1.0 mV IN CHEST LEADS] Compared to ECG 05/04/2022 11:54:37 Ventricular premature complex(es) now present ST (T wave) deviation no longer present Electronically Signed On 05-05-2022 6:44:40 CDT by Madelyn Gfiford M.D. [id number]
[2022-05-04] MEDS: vancomycin 1,000 MG SDV 1000 MG XX (13:45)
--- NOTE | 2022-05-04 14:26 | PM.OP ---
Operative Report Date of procedure: May 04, 2022 Pre-op diagnosis: Preop Diagnosis Wound dehiscence right knee Post-op diagnosis: same Procedure done: Irrigation and debridement right total knee and closure wound dehiscence Pathology: none sent Surgeon: Johny Walker Anesthesia: General Estimated blood loss (mL): 50 Findings: The patient has a dehiscence of approximately 10 cm of her anterior knee incision and superior medial patellar incision with exposed total knee components. The components of cells appear to be stable Condition: stable Disposition: PACU Brief History: The patient is a 62-year-old female who underwent elective right total knee arthroplasty on 04/26/2022. She had a fall this morning with resulting dehiscence of the right knee. She was taken emergently to the operating room for aggressive irrigation and debridement and wound closure Procedure: Sandra was taken the operating room and given a general anesthesia. Her right lower extremity was prepped in the usual fashion with a Betadine prep. A timeout was performed. Initially stitches were removed from the skin and subcutaneous tissue revealing disruption of the extensor retinaculum. All stitches with the retinacular repair were then removed allowing full access to the knee. Aggressive irrigation was accomplished with pulse lavage using 6 L of saline to remove all hematoma and thoroughly irrigate all surfaces. The knee was then soaked in a iodine solution. The extensor retinaculum was closed with a running 1 STRATAFIX suture and reinforced with 1 Vicryl suture. The subcutaneous tissues were closed with 2-0 Vicryl. The skin was closed with interrupted 1 and 0 PDS. Xeroflo gauze, 4 x 4's, compressive cast padding, and a compressive Cal[place] wrap were applied. The patient was extubated taken to recovery in stable condition.
[2022-05-04] MEDS: fentaNYL 50 mcg/mL INJ 2mL IVP ×2 (14:44→14:59)
[2022-05-04] MEDS: HYDROcodone-acetaminophen 10-325 mg Tablet 1 TAB PO (16:10)
== END 2022-05-04 16:40 | disposition home or self-care (01) ==
LOC: ER 11:57 → OPS 12:02
PROVIDERS: Emergency Provider Emergency Medicine; PCP Family Medicine; Visit Provider Orthopaedic Surgery
PROC: (CPT 11042; principal; 2022-05-04 13:30)
DX: T81.31XA Disruption of external operation (surgical) wound, not elsewhere classified, initial encounter (principal); Z91.81 History of falling; Z96.651 Presence of right artificial knee joint; J44.9 Chronic obstructive pulmonary disease, unspecified; I10 Essential (primary) hypertension; E11.9 Type 2 diabetes mellitus without complications; E66.01 Morbid (severe) obesity due to excess calories; Z68.36 Body mass index [BMI] 36.0-36.9, adult; Z86.73 Personal history of transient ischemic attack (TIA), and cerebral infarction without residual deficits; Z79.82 Long term (current) use of aspirin; Z79.4 Long term (current) use of insulin; F32.A Depression, unspecified; Z85.41 Personal history of malignant neoplasm of cervix uteri; F17.210 Nicotine dependence, cigarettes, uncomplicated
CPT/HCPCS: 11042; 13160; 36415; 36416; 73560; 80048; 82962; 84484; 85025; 85610; 85730; 93005; J0690; J1100; J1170; J2250; J2405; J2704; J3010; J3370; J3490; J7030

== ENCOUNTER → 2022-12-07 12:42 | Outpatient (BNVA) | payer MEDICARE, MEDICAID, SELFPAY | PROVIDERS: PCP Family Medicine; Visit Provider Family Medicine | DX: G47.00 Insomnia, unspecified (principal); E11.9 Type 2 diabetes mellitus without complications | CPT/HCPCS: 80053; 80061; 83036; 84443; 85025 ==

== ENCOUNTER → 2023-06-09 09:13 | Outpatient (BNVA) | payer MEDICARE, MEDICAID, SELFPAY | PROVIDERS: PCP Family Medicine; Visit Provider Family Medicine | DX: E11.9 Type 2 diabetes mellitus without complications (principal); I10 Essential (primary) hypertension; E78.5 Hyperlipidemia, unspecified | CPT/HCPCS: 80053; 80061; 83036; 83721; 85025 ==

== ENCOUNTER → 2023-10-19 14:20 | Outpatient (BNVA) | payer MEDICARE, MEDICAID, SELFPAY | PROVIDERS: PCP Family Medicine; Visit Provider Family Medicine | DX: E11.9 Type 2 diabetes mellitus without complications (principal); E78.5 Hyperlipidemia, unspecified; I10 Essential (primary) hypertension; M54.50 Low back pain, unspecified; R53.83 Other fatigue | CPT/HCPCS: 80053; 80061; 82607; 83036; 83540; 83721; 84443; 85025 ==

== ENCOUNTER → 2024-10-18 11:30 | Outpatient (BNVA) | payer MEDICARE, MEDICAID, SELFPAY | PROVIDERS: PCP Nurse Practitioner Family; Visit Provider Family Medicine | DX: I10 Essential (primary) hypertension (principal); E11.9 Type 2 diabetes mellitus without complications; E78.2 Mixed hyperlipidemia; R53.83 Other fatigue; Z79.4 Long term (current) use of insulin | CPT/HCPCS: 80053; 82306; 83036; 83540; 84443; 85025 ==

== ENCOUNTER 2025-05-07 09:57 | Outpatient (CLI) | payer MEDICARE, MEDICAID, SELFPAY ==
--- NOTE | 2025-05-07 10:09 | XR_ITS ---
WS: [id number] XR pelvis 1-2V* [id number] REASON FOR EXAM: PELVIN PAIN FINDINGS: No fracture or focal bone lesion. Significant facet joint arthropathy in the lower lumbar spine. No soft tissue mass. XR/XR pelvis 1-2V* [id number] IMPRESSION: No bone or soft tissue abnormality in the pelvis.
== END 2025-05-07 09:58 | disposition home or self-care (01) ==
PROVIDERS: PCP Nurse Practitioner Family; Visit Provider Internal Medicine
DX: R10.2 Pelvic and perineal pain (principal)
CPT/HCPCS: 72170

== ENCOUNTER 2025-05-13 15:01 | Outpatient (CLI) | payer MEDICARE, MEDICAID, SELFPAY ==
--- NOTE | 2025-05-13 15:09 | US_ITS ---
WS: [id number] US pelv w/transvag [id number] HISTORY: PELVIC PAIN, prior hysterectomy. COMPARISON: None available. Prior hysterectomy. No midline mass. Neither ovary is definitely identified. The LEFT ovary may have been identified but is very poorly visualized. There is shadowing in peristalsis from the GI tract noted in the adnexa. No free fluid in the pelvis. US/US pelv w/transvag [id number] IMPRESSION: 1. Prior hysterectomy. 2. Neither ovary is identified. No adnexal masses.
== END 2025-05-13 15:02 | disposition home or self-care (01) ==
LOC: RAD 15:03
PROVIDERS: PCP Nurse Practitioner Family; Visit Provider Internal Medicine
DX: R10.2 Pelvic and perineal pain (principal); Z90.710 Acquired absence of both cervix and uterus
CPT/HCPCS: 76830; 76856